=== PATIENT | female | born 1955 | race Caucasian/White ===

== ENCOUNTER 2017-05-30 05:25 | Emergency (ER) | payer OTHER ==
[~2017-05-30] VITALS: Ht 170.2 cm; Wt 83.9 kg
[~2017-05-30 05:25] MED LIST: ACET500; ACYC400 PO; ASPI325; CHLO25 PO; ESTR2 PO; ESTRADIOL1 MG PO; FURO40 PO; HYDHCL25 PO; HYDR1TAB94 PO; IBUP400 PO; K-Dur20 MEQ PO; MAGIC MOUTHWASH; MEDR2.5 PO; MEDR5 PO; METO100ER PO; MICO200S TOP; OXYACE5T PO; OXYB5 PO; Omeprazole20 M1 PO; PROC10 PO; Pepcid40 MG PO; SULTRIDS PO; TRAM50 PO; Zofran Odt4 MG SL; Zofran8 MG PO
[2017-05-30 05:58] LABS: BASOPHILS ABSOLUTE AUTO 0.07 K/mm3 (0.00-0.23); BASOPHILS PERCENT AUTO 1 % (0-2); EOSINOPHILS ABSOLUTE AUTO 0.02 K/mm3 (0.00-0.68); EOSINOPHILS PERCENT AUTO 0 % (0-6); Hematocrit 38.8 % (33.0-51.0); Hemoglobin 13.6 g/dL (11.5-16.0); IMMATURE GRAN ABSOLUTE AUTO 0.07 K/mm3 (0.00-0.10); IMMATURE GRAN PERCENT AUTO 1 % (0-1); LYMPHOCYTES ABSOLUTE AUTO 1.32 K/mm3 (0.84-5.20); LYMPHOCYTES PERCENT AUTO 11 % (21-46); MONOCYTES PERCENT AUTO 7 % (4-13); Mean Corpuscular HGB 32.5 pg (26.0-34.0); Mean Corpuscular HGB Conc 35.1 g/dL (31.5-36.5); Mean Corpuscular Volume 93 fL (80-100); Mean Platelet Volume 8.7 fL (9.1-12.4); NEUTROPHILS ABSOLUTE AUTO 9.99 K/mm3 (1.96-9.15); NEUTROPHILS PERCENT AUTO 81 % (41-73); Platelet Count 227 K/mm3 (150-400); RDW Coefficient Variation 11.7 % (11.7-14.2); RDW Standard Deviation 39.9 fL (35.1-46.3); Red Blood Cell Count 4.18 M/mm3 (3.80-5.20); White Blood Cell Count 12.27 K/mm3 (4.00-11.30)
[2017-05-30 06:00] LABS: Source, Urine Clean Catch
[2017-05-30 06:03] LABS: Bilirubin, Urine Neg (Neg); Blood, Urine Neg (Neg); Glucose Qualitative, Urine Neg (Neg); Ketones, Urine Neg (Neg); Leukocyte Esterase, Urine Neg (Neg); Nitrite, Urine Neg (Neg); Protein, Urine Neg (Neg); Specific Gravity, Urine 1.005 (1.003-1.022); Urobilinogen, Urine NORM (Normal); pH, Urine 6.5 (5.0-8.0)
[2017-05-30 06:08] LABS: Appearance, Urine Clear (Clear); Color, Urine Pale Yellow (P-Yellow)
[2017-05-30 06:15] LABS: Alanine Aminotransfer (ALT/SGP 27 U/L (12-78); Albumin, Blood 3.8 g/dL (3.4-5.0); Albumin/Globulin Ratio 0.9 (0.8-1.8); Alk Phos 101 U/L (50-136); Anion Gap 13 mmol/L (6-16); Aspartate Aminotrans (AST/SGOT 54 U/L (12-37); Bilirubin, Total 0.6 mg/dL (0.1-1.0); Blood Urea Nitrogen 2 mg/dL (8-24); Bun/Creatinine Ratio 4.8 (12.0-20.0); CO2, Blood 18 mmol/L (21-32); Calcium, Blood 7.9 mg/dL (8.5-10.1); Chloride, Blood 90 mmol/L (98-108); Creatinine, Blood 0.42 mg/dL (0.40-1.00); Ethanol (Alcohol), Blood, Med <3 mg/dL; Globulin, Blood 4.4 g/dL (2.2-4.0); Glomerular Filtration Rate >60 (60-); Glucose, Blood 134 mg/dL (70-99); Potassium, Blood 3.3 mmol/L (3.5-5.5); Sodium, Blood 121 mmol/L (136-145); Total Protein, Blood 8.2 g/dL (6.4-8.2)
[2017-05-30] MEDS ORDERED: PROM25 PO (08:09)
[2017-05-30] MEDS ORDERED: Pepcid40 MG PO (08:09)
[2017-05-30] MEDS ORDERED: K-Dur20 MEQ PO (08:12)
== END 2017-05-30 10:18 | disposition home or self-care (01) ==
LOC: ER 05:25
PROVIDERS: Emergency Medicine
DX: K29.20 Alcoholic gastritis without bleeding (principal); F10.10 Alcohol abuse, uncomplicated; E87.6 Hypokalemia; E87.1 Hypo-osmolality and hyponatremia; Z88.5 Allergy status to narcotic agent; Z79.899 Other long term (current) drug therapy; Z87.891 Personal history of nicotine dependence; Y90.0 Blood alcohol level of less than 20 mg/100 ml
CPT/HCPCS: 36415; 80053; 81003; 83690; 85025; 93005; 93010; 96361; 96365; 96366; 96375; 96376; 99283; C9113; G0480; J2001; J2060; J2405; J2550; J3411; J3475; J3480; J7030; J7042

== ENCOUNTER → 2017-12-13 | Outpatient (CLI) | payer OTHER ==
[~2017-12-13] MED LIST changes: +PROM25 PO
[2017-12-15 16:08] LABS: HPV 16 Negative (Negative); HPV 18 Negative (Negative); HPV OTHER HR TYPES Negative (Negative)
== END | disposition home or self-care (01) ==
LOC: LAB 17:26 → LAB SHORT 17:26
PROVIDERS: Nurse Practitioner Women's Health
DX: Z12.4 Encounter for screening for malignant neoplasm of cervix (principal); Z91.89 Other specified personal risk factors, not elsewhere classified
CPT/HCPCS: 87624; G0123

== ENCOUNTER → 2017-12-22 | Outpatient (CLI) | payer OTHER | END | disposition home or self-care (01) | LOC: LAB SHORT 07:50 → PLD 07:50 | DX: N84.0 Polyp of corpus uteri (principal); N95.0 Postmenopausal bleeding | CPT/HCPCS: 88305 ==

== ENCOUNTER 2018-03-30 15:53 | Emergency (ER) | payer OTHER ==
[~2018-03-30] VITALS: Ht 175.3 cm; Wt 83.9 kg
[2018-03-30] MEDS ORDERED: IRON240 MG PO (16:34)
== END 2018-03-30 17:16 | disposition home or self-care (01) ==
LOC: ER 15:53
DX: S80.01XA Contusion of right knee, initial encounter (principal); R03.0 Elevated blood-pressure reading, without diagnosis of hypertension; Z88.5 Allergy status to narcotic agent; Z87.891 Personal history of nicotine dependence; W01.0XXA Fall on same level from slipping, tripping and stumbling without subsequent striking against object, initial encounter
CPT/HCPCS: 73562-RT; 99283-25

== ENCOUNTER 2018-09-03 09:29 | Emergency (ER) | payer OTHER ==
[~2018-09-03] VITALS: Ht 172.7 cm; Wt 72.6 kg
[~2018-09-03 09:29] MED LIST changes: +IRON240 MG PO
[2018-09-03] MEDS ORDERED: Cleocin HCl300 MG PO (12:07)
== END 2018-09-03 12:50 | disposition home or self-care (01) ==
LOC: ER 09:29
DX: K04.7 Periapical abscess without sinus (principal); H61.23 Impacted cerumen, bilateral; R42 Dizziness and giddiness; Z88.5 Allergy status to narcotic agent; Z79.899 Other long term (current) drug therapy; Z87.891 Personal history of nicotine dependence
CPT/HCPCS: 69210; 70450; 99284-25; A9270-GY

== ENCOUNTER 2018-12-17 17:59 | Emergency (ER) | payer OTHER ==
[~2018-12-17] VITALS: Ht 175.3 cm; Wt 78.0 kg
[~2018-12-17 17:59] MED LIST changes: +Cleocin HCl300 MG PO
[2018-12-17 18:54] LABS: BASOPHILS ABSOLUTE AUTO 0.15 K/mm3 (0.00-0.23); BASOPHILS PERCENT AUTO 3 % (0-2); EOSINOPHILS ABSOLUTE AUTO 0.15 K/mm3 (0.00-0.68); EOSINOPHILS PERCENT AUTO 3 % (0-6); Hematocrit 38.6 % (33.0-51.0); Hemoglobin 13.2 g/dL (11.5-16.0); IMMATURE GRAN ABSOLUTE AUTO 0.01 K/mm3 (0.00-0.10); IMMATURE GRAN PERCENT AUTO 0 % (0-1); LYMPHOCYTES ABSOLUTE AUTO 2.26 K/mm3 (0.84-5.20); LYMPHOCYTES PERCENT AUTO 44 % (21-46); MONOCYTES ABSOLUTE AUTO 0.53 K/mm3 (0.16-1.47); MONOCYTES PERCENT AUTO 10 % (4-13); Mean Corpuscular HGB 34.8 pg (26.0-34.0); Mean Corpuscular HGB Conc 34.2 g/dL (31.5-36.5); Mean Corpuscular Volume 102 fL (80-100); Mean Platelet Volume 9.5 fL (9.1-12.4); NEUTROPHILS ABSOLUTE AUTO 2.09 K/mm3 (1.96-9.15); NEUTROPHILS PERCENT AUTO 40 % (41-73); Platelet Count 124 K/mm3 (150-400); RDW Coefficient Variation 12.5 % (11.7-14.2); RDW Standard Deviation 47.6 fL (35.1-46.3); Red Blood Cell Count 3.79 M/mm3 (3.80-5.20); White Blood Cell Count 5.19 K/mm3 (4.00-11.30)
[2018-12-17 19:24] LABS: Alanine Aminotransfer (ALT/SGP 46 U/L (12-78); Albumin, Blood 3.6 g/dL (3.4-5.0); Albumin/Globulin Ratio 0.9 (0.8-1.8); Alk Phos 61 U/L (50-136); Anion Gap 10 mmol/L (6-16); Aspartate Aminotrans (AST/SGOT 108 U/L (12-37); Bilirubin, Total 0.8 mg/dL (0.1-1.0); Blood Urea Nitrogen 6 mg/dL (8-24); Bun/Creatinine Ratio 12.9 (12.0-20.0); CO2, Blood 23 mmol/L (21-32); Calcium, Blood 8.5 mg/dL (8.5-10.1); Chloride, Blood 103 mmol/L (98-108); Creatinine, Blood 0.47 mg/dL (0.40-1.00); Glomerular Filtration Rate >60 (60-); Glucose, Blood 96 mg/dL (70-99); Potassium, Blood 3.8 mmol/L (3.5-5.5); Sodium, Blood 136 mmol/L (136-145); Total Protein, Blood 7.6 g/dL (6.4-8.2); Troponin I <0.015 ng/mL (0.000-0.040)
[2018-12-17 19:25] LABS: Ethanol (Alcohol), Blood, Med 385 mg/dL
== END 2018-12-17 22:04 | disposition home or self-care (01) ==
LOC: ER 17:59
PROVIDERS: Physician Assistant
DX: S06.0X9A Concussion with loss of consciousness of unspecified duration, initial encounter (principal); S01.81XA Laceration without foreign body of other part of head, initial encounter; F10.129 Alcohol abuse with intoxication, unspecified; Z87.891 Personal history of nicotine dependence; Z88.5 Allergy status to narcotic agent; Z88.1 Allergy status to other antibiotic agents; Z79.899 Other long term (current) drug therapy; W01.10XA Fall on same level from slipping, tripping and stumbling with subsequent striking against unspecified object, initial encounter
CPT/HCPCS: 12004; 36415; 70450; 72125; 80053; 84484; 85025; 93005; 93010; 99284-25; G0480

== ENCOUNTER 2018-12-19 16:50 | Inpatient (IN) | payer OTHER ==
[~2018-12-19] VITALS: Ht 175.3 cm; Wt 78.5 kg
[2018-12-19 17:40] LABS: BASOPHILS ABSOLUTE AUTO 0.09 K/mm3 (0.00-0.23); BASOPHILS PERCENT AUTO 2 % (0-2); EOSINOPHILS ABSOLUTE AUTO 0.03 K/mm3 (0.00-0.68); EOSINOPHILS PERCENT AUTO 1 % (0-6); Hematocrit 34.5 % (33.0-51.0); Hemoglobin 12.2 g/dL (11.5-16.0); IMMATURE GRAN ABSOLUTE AUTO 0.02 K/mm3 (0.00-0.10); IMMATURE GRAN PERCENT AUTO 0 % (0-1); LYMPHOCYTES ABSOLUTE AUTO 1.12 K/mm3 (0.84-5.20); LYMPHOCYTES PERCENT AUTO 18 % (21-46); MONOCYTES ABSOLUTE AUTO 0.58 K/mm3 (0.16-1.47); MONOCYTES PERCENT AUTO 10 % (4-13); Mean Corpuscular HGB 35.5 pg (26.0-34.0); Mean Corpuscular HGB Conc 35.4 g/dL (31.5-36.5); Mean Corpuscular Volume 100 fL (80-100); Mean Platelet Volume 9.8 fL (9.1-12.4); NEUTROPHILS ABSOLUTE AUTO 4.26 K/mm3 (1.96-9.15); NEUTROPHILS PERCENT AUTO 70 % (41-73); Platelet Count 103 K/mm3 (150-400); RDW Coefficient Variation 12.2 % (11.7-14.2); RDW Standard Deviation 45.1 fL (35.1-46.3); Red Blood Cell Count 3.44 M/mm3 (3.80-5.20)
[2018-12-19 18:11] LABS: Alanine Aminotransfer (ALT/SGP 43 U/L (12-78); Albumin, Blood 3.8 g/dL (3.4-5.0); Alk Phos 67 U/L (50-136); Anion Gap 9 mmol/L (6-16); Aspartate Aminotrans (AST/SGOT 81 U/L (12-37); Bilirubin, Total 1.3 mg/dL (0.1-1.0); Blood Urea Nitrogen 4 mg/dL (8-24); Bun/Creatinine Ratio 8.7 (12.0-20.0); CO2, Blood 23 mmol/L (21-32); Calcium, Blood 8.2 mg/dL (8.5-10.1); Chloride, Blood 94 mmol/L (98-108); Creatinine, Blood 0.46 mg/dL (0.40-1.00); Globulin, Blood 3.7 g/dL (2.2-4.0); Glomerular Filtration Rate >60 (60-); Glucose, Blood 111 mg/dL (70-99); Potassium, Blood 3.4 mmol/L (3.5-5.5); Total Protein, Blood 7.5 g/dL (6.4-8.2)
[2018-12-19 18:33] LABS: Sodium, Blood 126 mmol/L (136-145)
[2018-12-19 19:38] LABS: Source, Urine Clean Catch
[2018-12-19 19:41] LABS: Appearance, Urine Clear (Clear); Bilirubin, Urine Neg (Neg); Blood, Urine Neg (Neg); Color, Urine Amber (P-Yellow); Glucose Qualitative, Urine Neg (Neg); Ketones, Urine Neg (Neg); Leukocyte Esterase, Urine 1+ (Neg); Nitrite, Urine Neg (Neg); Protein, Urine Neg (Neg); Urobilinogen, Urine NORM (Normal); pH, Urine 6.5 (5.0-8.0)
[2018-12-19 19:51] LABS: Bacteria Rare /hpf; Red Blood Cells, Urine 0-2 /hpf (0-2); Squamous Epithelial Cells Rare /hpf (Few)
[2018-12-19] MEDS ORDERED: ONDA4ODT MM (21:51)
[2018-12-20 04:35] LABS: Magnesium, Blood 2.1 mg/dL (1.6-2.4)
[2018-12-20 04:41] LABS: Anion Gap 7 mmol/L (6-16); Blood Urea Nitrogen 3 mg/dL (8-24); Bun/Creatinine Ratio 5.3 (12.0-20.0); CO2, Blood 26 mmol/L (21-32); Calcium, Blood 7.9 mg/dL (8.5-10.1); Chloride, Blood 103 mmol/L (98-108); Creatinine, Blood 0.56 mg/dL (0.40-1.00); Glomerular Filtration Rate >60 (60-); Glucose, Blood 87 mg/dL (70-99); Potassium, Blood 3.8 mmol/L (3.5-5.5)
[2018-12-20 04:42] LABS: Sodium, Blood 136 mmol/L (136-145)
--- NOTE | 2018-12-20 08:15 | NUR ---
SHIFT SUMMARY ASSUMED CARE OF PT AT 0100, PT ARRIVED BY EMILIANA, RECEIVED REPORT FROM HALLIE ER NURSE. PT ALERT IN BED, QUICK TO FALL ASLEEP, BUT EASILY ROUSABLE, AND ANSWERED ALL QUESTIONS APPROPRIATELY. INITIATED CONTINUOUS PULSE OX, SEIZURE PRECAUTIONS, AND ASPIRATION PRECAUTIONS PER MD ORDER AND UNIT PROTOCOL. PT RESPONDS APPROPRIATELY, BUT MAY LOSE ORIENTATION TO HER OWN LIMITATIONS PER THIS STAY. PATIENT'S CIWAS GRADUALLY INCREASED FROM <8 AT PCU ADMIT TO 20 AT 0521 WHEN PT'S BED ALARM ALERTED STAFF OF HER INTENT TO SELF-TRANSFER TO [facility]. PATIENT REMAINED IN BED WITH NO ISSUES FOR REMAINDER OF SHIFT. REPORT AND CARE OF PT PASSED TO ONCOMING SHIFT AT 0700. BED LOCKED AND LOW, CALL LIGHT W/IN REACH.
[2018-12-20] MEDS ORDERED: MEDR5 PO (08:24)
[2018-12-20] MEDS ORDERED: Prinivil10 MG PO (08:25)
[2018-12-20] MEDS ORDERED: Hydrochloroth12.5 MG PO (08:26)
--- NOTE | 2018-12-20 08:28 | NUR ---
Dr. Flaherty here to see the pt at this time. Med list from home updated.
--- NOTE | 2018-12-20 08:46 | NUR ---
Pt assisted, very weak and shaky legs, to the BSC. NOted brown/red stool, and blood when wiping. Pt denies hemorrhoids. Dr. Flaherty called back into room, and he saw the stool. New order received.
--- NOTE | 2018-12-20 09:04 | NUR ---
given 2 mg ativan for CIWA of 9 at this time. Her is calm, supportive and remaining by the bedside. Pt tolerated clear liquid breakfast.
--- NOTE | 2018-12-20 09:27 | NUR ---
Per pt, her last drink was Tuesday around noon. States that she drinks at least 2 beers per day.
--- NOTE | 2018-12-20 09:55 | NUR ---
ALCOHOL INTAKE Glynn tells me that the pt drinks 6 Hurricane beers/day, 24 ounces each. States that when he leaves to go to work, if she has no money, then she will borrow from the neighbor and get someone else to buy them for her. States that they have had big arguments about her drinking. He does not believe that she wants to quit drinking.
--- NOTE | 2018-12-20 10:53 | NUR ---
The pt is sleepy, but readily awakens to verbal/tactile stimuli. Her is at the bedside. Vital signs are stable. CIWA is 1 at this time.
[2018-12-20 11:27] LABS: Stool Occult Blood Guaiac 1 Pos (Neg)
--- NOTE | 2018-12-20 11:27 | NUR ---
Patient is sitting up in bed and dosing off and on with her , Denny edwards. I focused my conversation on the because patient is unable to focus for more than a few minutes at a time. Denny tells me about his employment at the [employer], his confucianist/[employer]ist of [place] spiritual background and about his hobbies (he loves riding his motorcycle). We talk about what life is like for him as he deals with the patient's"health" issues. Patient admits that it is difficult for him. We talk about ways to manage this stress. I listen empathically and provide pastoral litigation counsel and prayer. Both patient and Denny thank me for the prayer. I will continue to remain available to patient and family.
--- NOTE | 2018-12-20 13:05 | NUR ---
Call to Dr. Flaherty to update on pt's rising blood pressure, and home medication for blood pressure, not yet on the in-patient orders. New order received to start the home antihypertensives. Also informed the doctor of the information received from the pt's , that her alcohol intake is 6 x 24 oz hurricane beer / day. Pt is having stable withdrawls at this point in time, with the use of current prn librium and ativan as ordered.
--- NOTE | 2018-12-20 13:36 | NUR ---
The pt is sitting up in bed, says that she is done with lunch, and is feeling fine. Appears calm, no agitation or anxiety apparent, no tremors noted, able to tell me that the date is 12/20/18. Her is at the bedside.
--- NOTE | 2018-12-20 15:59 | NUR ---
family at bedside, call light in reach, able to make needs known, assisted to bsc, no s/sx of withdrawl noted at this time, treatment has been successful, still very sleepy, bed alarm on for safety
--- NOTE | 2018-12-20 22:01 | NUR ---
PCU NOTE (NOC SHIFT) PATIENT ALERT AND ORIENTED TO SELF, LOCATION AND SITUATION. PATIENT AND PATIENTS VERBALIZE THAT PATIENT HAS BEEN UNABLE TO STOP DRINKING (ETOH CESSATION). PATIENT HAD A FALL IN HER BATHROOM WHILE INPAIRED AT HOME AND HAS A SEVERE LACERATION TO HER SCALP WITH 18 STITCHES NOTED, SWELLING AND OOZING OF BLOOD NOTED (PATIENT HAS LOW PLATLETS). PATIENTS CIWA SCORES HAVE BEEN 9-16 THIS SHIFT SHE IS TREMULOUS, PLEASANTLY AGITATED (MOVING AROUND, SHIFTING IN BED, GETTING UP AND DOWN) AND SWEATY; MEDICATED PER EMAR. PATIENT HEART RATE CONTINUOUS TO BE SINUS TACH. LUNG SOUNDS CLEAR AND PATIENT REMAINS ON ROOM AIR. BED ALARM ON, SIDE RAILS UP X3, WILL CONTINUE TO MONITOR.
--- NOTE | 2018-12-21 00:37 | NUR ---
PCU 0000 NOTE PATIENT RESTFUL AT THIS TIME WITH CIWA >9. REPORTED TO MAIN WOODWARD. BED ALARM ON. CALL LIGHT W/I REACH.
--- NOTE | 2018-12-21 01:29 | NUR ---
REPORT FROM JOSE G WOODWARD AT APPRX 0040. PT MUMBLING. VSS. PT 96% ON RA. PT SHORTLY AFTER RESTLESS IN BED SOUNDING OFF BED ALARM. PT STATED NEEDED TO GO, "PEE". PT ASSISTED ONTO BEDPAN. PT THUS FAR SLIGHTLY RESTLESS AT TIMES BUT NOT TRYING TO GET OUT OF BED. WILL CONTINUE TO MONITOR. SEE CIMA FLOWSHEET.
--- NOTE | 2018-12-21 02:58 | NUR ---
PT RESTING QUIETLY AFTER ATIVAN 2mg ADMIN. PRIOR TO FALLING ASLEEP PT RESTLESS AND GIVEN BEDPAN. PT AT THAT TIME ANSWERED, "[place]" TO PLACE, "[facility]" TO PRESIDENT, "[facility]" TO MONTH, THEN STATED, "HOSP[facility]" TO PLACE. CURRENTLY PT SLEEPING, SATS 97% ON RA, HR 86, RR 18. BED ALARM ON.
[2018-12-21 04:14] LABS: Hematocrit 34.6 % (33.0-51.0); Hemoglobin 11.4 g/dL (11.5-16.0); Mean Corpuscular HGB 34.5 pg (26.0-34.0); Mean Corpuscular HGB Conc 32.9 g/dL (31.5-36.5); Mean Platelet Volume 10.4 fL (9.1-12.4); Platelet Count 92 K/mm3 (150-400); RDW Coefficient Variation 12.4 % (11.7-14.2); RDW Standard Deviation 47.9 fL (35.1-46.3)
[2018-12-21 04:24] LABS: Mean Corpuscular Volume 105 fL (80-100)
[2018-12-21 04:40] LABS: Anion Gap 7 mmol/L (6-16); Blood Urea Nitrogen 3 mg/dL (8-24); Bun/Creatinine Ratio 6.6 (12.0-20.0); CO2, Blood 26 mmol/L (21-32); Calcium, Blood 7.7 mg/dL (8.5-10.1); Chloride, Blood 106 mmol/L (98-108); Creatinine, Blood 0.46 mg/dL (0.40-1.00); Glomerular Filtration Rate >60 (60-); Glucose, Blood 96 mg/dL (70-99); Sodium, Blood 139 mmol/L (136-145)
--- NOTE | 2018-12-21 07:35 | NUR ---
250mg of Librium and 10 mg ativan given within the past 24 hours per CIWA score dosing. The pt awakened during report, was speaking incoherently, and attempting OOB independently, and set off the bed alarm. Stated that she was at the judaism. We were able to get her settled back in bed easily, and she has fallen asleep now. NOC shift had medicated her with ativan at 0640.
--- NOTE | 2018-12-21 08:42 | NUR ---
Pt is having slurred speech, still, but more understandable and appropriate. When getting her up to the [facility], she c/o left sided weakness. Noted that she has a slight left side mouth and left eye slight drooping. her is here and noted it also. PERRLA, right side tongue deviation. Facial expressions are unequal, with left being droopy. Able to shrug her shoulders equally, and able to raise her arms but they are drifted off to the right, although she states they are straight. Left hand financial systems administrator also slightly weaker. Dr. Randall called and new orders will be put in by him.
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
--- NOTE | 2018-12-21 16:00 | NUR ---
Dr. Randall to see the pt at this time. The pt states she is mad, upset and anxious. She is angry at her because he won't give her any beer. The pt states that she doesn't want a whole 6 pack like she usually gets, just one beer, but her won't get it for her. She continues to stand up, unaware apparently that she is at risk for falling and can barely take a few steps with max staff assistance to transfer between chair and bed. Chair alarm is on. The pt tells Dr. Randall that she has no intention of quitting drinking at this time. New order recieved for OT ativan at this time.
--- NOTE | 2018-12-21 16:12 | NUR ---
Pt's left about 30 minutes ago, because it was just making his angrier and angrier that he was here and refusing to her her some beer. Extra dose of ativan was given per MD orders at this time.
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
--- NOTE | 2018-12-21 18:29 | NUR ---
A AT BASE LINE, CALL LIGHT IN REACH, FAMILY IN ROOM, ALARM TURNED ON, BED IN LOW POSITION, CIWA COMPLETED AND TREATED APPROPRIATE, IV INFUSING AND SALINE LOCKED, 3 l VIA NC, TACH AND NSR FROM 90'S UP TO LOW 100'S, STILL CONFUSED AT TIME, WANTS TO GO HOME, WOUND STILL SLIGHTLY SWOLLEN, WILL CONTINUE TO MONITOR AND TREAT UNTIL SBAR REPORT PROVIDE TO NIGHT NURSE
[2018-12-22 04:44] LABS: Anion Gap 9 mmol/L (6-16); Blood Urea Nitrogen 1 mg/dL (8-24); Bun/Creatinine Ratio 2.3 (12.0-20.0); CO2, Blood 21 mmol/L (21-32); Calcium, Blood 7.7 mg/dL (8.5-10.1); Chloride, Blood 107 mmol/L (98-108); Creatinine, Blood 0.43 mg/dL (0.40-1.00); Glomerular Filtration Rate >60 (60-); Glucose, Blood 104 mg/dL (70-99); Potassium, Blood 2.9 mmol/L (3.5-5.5); Sodium, Blood 137 mmol/L (136-145)
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
--- NOTE | 2018-12-22 08:17 | NUR ---
REPORT CALLED TO HAVEN WOODWARD FOR ICU BED. AWARE CIWA 30S AND THAT 2MG ATIVAN ADMINISTERED. MET US IN [place] AND WAS DIRECTED TO ROOM
--- NOTE | 2018-12-22 09:30 | NUR ---
ARRIVAL TO ICU PT ARRIVED TO ICU AT 0810. SHE IS DROWSY AND SLEEPING UPON ARRIVAL. SLURRED SPEECH WHEN ANSWERING QUESTIONS. DENIES PAIN AT THIS TIME. NSR, HR 90-110. BP STABLE. AFEBRILE. NS INFUSING AT 100 ML/HR PER ORDER. POTASSIUM REPLACEMENT INFUSING. AT BEDSIDE. DENIES NAUSEA. WILL CONTINUE TO MONITOR.
--- NOTE | 2018-12-22 11:44 | NUR ---
REASSESSMENT PT SLEPING AND APPEARS COMFORTABLE AT THIS TIME. PT WAS HAVING MODERATE TREMORS, HALLUCINATIONS, AND WAS MILDLY AGITATED. PRECEDEX GTT STARTED AT 1030; CURRENTLY INFUSING AT 0.3MCG/KG. NS INFUSING AT 100 ML/HR PER ORDER. VSS. NSR, HR 70S. WILL CONTINUE TO MONITOR.
--- NOTE | 2018-12-22 19:00 | NUR ---
ASSUMED CARE ASSUMED CARE OF PATIENT. RESTING QUIETLY WHEN UNDISTURBED. ROUSES TO VERBAL STIMULI. ORIENTED TO SELF, PLACE, AND EVENTS WHEN AWAKE. DISORIENTED TO DATE/TIME. COOPERATIVE WITH CARE. SPEECH IS GARBLED. PRECEDEX INFUSING @ 0.4MCG/KG/HR AT THIS TIME. NS INFUSING @ 100CC/HR. MOVES ALL EXTREMITITES AND REPOSITIONS SELF IN BED WITHOUT DIFFICULTY. DENIES C/O PAIN AT THIS TIME. MONITOR SHOWS NSR, RATE 60s. BP STABLE. REMAINS ON RA. RESPIRATIONS EVEN AND UNLABORED. ATTENDS IN PLACE. SEE SHIFT ASSESSMENT FOR FULL ASSESSMENT.
--- NOTE | 2018-12-22 19:35 | NUR ---
SHIFT SUMMARY PT REMAINED IN BED ENTIRE SHIFT. WAS TRANSFERRED FROM PCU AT 0800 TODAY. PRECEDEX GTT STARTED AROUND 1030 WHEN PT BECAME RESTLESS AND CIWA INCREASED. NO S/S PAIN THROUGHOUT SHIFT. VSS ENTIRE SHIFT. NSR. MIV NS INFUSING AT 100 ML;/HR PER ORDER DURING SHIFT. PT HAD MULTIPLE WET BREIFS DURING SHIFT. HAS REMAINED NPO DUE TO ASPIRATION RISK. BEDSIDE MOST OF SHIFT AND UPDATED THROUGHOUT DAY. HENRY ON HEAD REMAIN INTACT. BEDSIDE, HANDOFF REPORT GIVEN TO RAMESH WOODWARD.
[2018-12-23 03:59] LABS: Anion Gap 9 mmol/L (6-16); Blood Urea Nitrogen 2 mg/dL (8-24); CO2, Blood 19 mmol/L (21-32); Calcium, Blood 7.2 mg/dL (8.5-10.1); Chloride, Blood 112 mmol/L (98-108); Glomerular Filtration Rate >60 (60-); Glucose, Blood 102 mg/dL (70-99); Magnesium, Blood 1.7 mg/dL (1.6-2.4); Phosphorus, Blood 1.8 mg/dL (2.5-4.9); Potassium, Blood 3.2 mmol/L (3.5-5.5); Sodium, Blood 140 mmol/L (136-145)
--- NOTE | 2018-12-23 06:15 | NUR ---
ABNORMAL LABS LOW POTASSIUM, MAGNESIUM, AND PHOSPHOROUS CALLED TO DR. LOMBARDI- NEW ORDERS RECEIVED FOR REPLACEMENT.
--- NOTE | 2018-12-23 06:27 | NUR ---
SHIFT SUMMARY NO ACUTE CHANGES DURING NOC. RESTED/SLEPT QUIETLY WHEN UNDISTURBED. ROUSES TO VERBAL STIMULI. SPEECH REMAINS GARBLED. ORIENTED TO SELF AND PLACE. DISORIENTED TO DATE/TIME. PRECEDEX INFUSED AT 0.4MCG/KG/HR T/O NOC. CIWA 8-10. REPOSITIONS SELF IN BED. OCCASIONALLY VOIDS IN BEDPAN AND OCCASIONALLY INCONTINENT OF URINE. HENRY REMAIN INTACT TO LEFT SIDE OF HEAD. NS INFUSING @ 100CC/HR PER ORDER. WILL REPORT TO DAY SHIFT RN WHEN AVAILABLE.
--- NOTE | 2018-12-23 13:19 | NUR ---
REASSESSMENT: PT HAS BEEN RESTING IN BED THROUGHOUT THE MORNING. SHE CONTINUES ON THE PRECEDEX DRIP, TIRATING DOWN ABLE. THIS MORNING IT WAS TURNED OFF TO ALLOW HER TO WAKE UP ENOUGH TO TAKE HER MEDICATIONS. WITH PRECEDEX OFF SHE WAS ORIENTED TO PERSON AND PLACE, BUT HAVING VISUAL HALLUCINATIONS AND QUITE CONFUSED. PT KEPT THINKING HER BETYBNAD'S HAND WAS JELLO AND WAS PICKING AT THINGS THAT WEREN'T THERE. PT WAS ABLE TO TAKE HER MEDS SAFELY AND THEN PRECEDEX TURNED BACK ON, BUT AT A LOWER RATE. LUNGS ARE CLEAR, DIM. PT IS ON RA. SR, BP STABLE. PT WAS INCONTINENT OF A BM. SHE HAS BEEN INCONTINENT OF URINE ONCE AND CALLED TO USE THE RESTROOM ONCE. PT'S HEAD WOUND REMAINS UNCHANGED. PT'S HAS SPENT MOST OF THE MORNING AT THE BEDSIDE. CONTINUING TO MONITOR.
[2018-12-23 15:54] LABS: Anion Gap 8 mmol/L (6-16); Blood Urea Nitrogen 2 mg/dL (8-24); Bun/Creatinine Ratio 4.9 (12.0-20.0); CO2, Blood 22 mmol/L (21-32); Calcium, Blood 7.6 mg/dL (8.5-10.1); Chloride, Blood 108 mmol/L (98-108); Creatinine, Blood 0.41 mg/dL (0.40-1.00); Glomerular Filtration Rate >60 (60-); Glucose, Blood 126 mg/dL (70-99); Potassium, Blood 3.9 mmol/L (3.5-5.5); Sodium, Blood 138 mmol/L (136-145)
--- NOTE | 2018-12-23 16:46 | NUR ---
SHIFT SUMMARY: PT SPENT THE DAY RESTING IN BED. CIWAA HAS RANGED FROM 8-11. PRECEDEX GTT STILL INFUSING, BUT HAS BEEN TITRATED DOWN TO 0.1 MCG/KG/HR. LUNGS ARE CLEAR. HR SR, BP STABLE. PT HAS REQUESTED THE BED NAVARRO TWICE TODAY TO VOID AND HAD ONE INCONTINENT EPISODE OF URINE AND ONE OF STOOL. PT'S HAS REMAINED AT THE BEDSIDE ON AND OFF THROUGHOUT THE DAY. HE HAS BEEN FULLY UPDATED BY NURSING STAFF AND DR. ROD.
--- NOTE | 2018-12-23 21:00 | NUR ---
ASSUMED CARE NOTE: ASSUMED CARE OF PT AT 1900, RECEIVED REPORT FROM JAIRON. UPON ENTERING [facility], PT WAS LAYING IN THE SUPINE POSITION IN BED. PT WAS ABLE TO FOLLOW DIRECTIONS, HOWEVER SHE IS ONLY ORIENTED TO SELF AND FAMILY. PT'S INITAL CIWA WAS 9 AND SHE WAS MEDICATED PER EMAR. PT DENIES ANY PAIN AT THIS TIME. PT HAS MODERATE TREMORS NOTED. PT DOES NOT APPEAR TO BE HALLUCINATING AT THIS TIME. WHEN PT WAS ASKED HOW SHE WAS DOING SHE STATED " I AM ANXIOUS AND DEPRESSED". PT WAS EDUCATED THAT MEDICATIONS WOULD BE GIVEN TO HER TO HELP EASE HER ANXIETY.PT HAS BEEN INCONTINENT OF STOOL AND URINE. BED AT LOWEST LEVEL , BED ALARM ON AND CALL LIGHT IS WITHIN REACH
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
[2018-12-24 04:06] LABS: Anion Gap 7 mmol/L (6-16); Blood Urea Nitrogen 3 mg/dL (8-24); Bun/Creatinine Ratio 7.3 (12.0-20.0); CO2, Blood 23 mmol/L (21-32); Calcium, Blood 7.2 mg/dL (8.5-10.1); Chloride, Blood 109 mmol/L (98-108); Creatinine, Blood 0.41 mg/dL (0.40-1.00); Glomerular Filtration Rate >60 (60-); Glucose, Blood 102 mg/dL (70-99); Magnesium, Blood 1.9 mg/dL (1.6-2.4); Phosphorus, Blood 2.5 mg/dL (2.5-4.9); Potassium, Blood 3.4 mmol/L (3.5-5.5); Sodium, Blood 139 mmol/L (136-145)
--- NOTE | 2018-12-24 06:08 | NUR ---
SHIFT SUMMARY: PT WAS ABLE TO GET SOME REST AFTER PRECEDEX WAS INITIATED. HOWEVER, IT HAD TO BE TITRATED DOWN TO 0.2MCG/KG/HR DUE TO BP DECREASING INTO THE LOW 90/50'S. PT HAS BEEN ORIENTED TO SELF, AND HAS BEEN EXPERIENCING HALLUCINATIONS, SUCH BELIEVING THERE ARE PEOPLE IN HER ROOM. SHE HAS ALSO YELLING OUT INCOHERENT WORDS. PT HAS USED THE BEDPAN A COUPLE TIMES DURING THE SHIFT, BUT HAS MOSTLY BEEN INCONTINENT. CIWA SCORES HAVE RANGED FROM 8-24, AND SHE WAS MEDICATED PER EMAR. PT HAS DENIED ANY PAIN, NAUSEA, VOMITING. PT REPOSITONS SELF, BED AT LOWEST LEVEL. WILL CONTINUE TO MONITOR PT UNTIL REPORT IS GIVEN TO ONCOMING SHIFT.
--- NOTE | 2018-12-24 14:43 | NUR ---
PT LYING IN BED COMFORTABLY MOST OF THE DAY. AM CIWA 8, 50MG LIBRIUM GIVEN. MINIMUM WITHDRAWAL SYMPTOMS NOTED DURING AFTERNOON ASSESSMENT. HEAD LAC AND HENRY REMAIN DRY AND INTACT. PT A&O TO SELF, PLACE, YEAR HOWEVER SPEECH IS SLURRED AND PT STATED SHE FELT GROGGY. PRECEDEX TURNED OFF TO ALLOW FOR NEURO ASSESSMENT AND TO TAKE AM PO MEDS. PT WAS ABLE TO TAKE PO MEDS ONE PILL AT A TIME IN APPLESAUCE. PT HAS BECOME MORE ALERT THROUGHOUT DAY. LUNG SOUNDS CLEAR BUT DIMINISHED, 02 SAT 99% ON RA. BOWEL TONES ACTIVE. PT HAS HAD ONE SMALL LOOSE BM AND VOIDED 100ML OF URINE. PT IN DEPENDS BUT REQUESTS BEDPAN WHEN NEEDED. PT GENERALLY WEAK AND NEEDS ASSISTANCE WITH TURNING AND ADLS.
--- NOTE | 2018-12-24 16:19 | NUR ---
SHIFT SUMMARY: PT IN BED MAJORITY OF SHIFT. ALERTNESS HAS INCREASED SOME THROUGHOUT DAY ONCE PRECEDEX WAS TURNED OFF. AM CIWA 8, 50 MG LIBRIUM GIVEN. ON AFTERNOON REASSESSMENT PT STATED SHE FELT BETTER AND ISN'T SHAKY. FINAL BAG OF K+ HANGING WITH
--- NOTE | 2018-12-24 20:00 | NUR ---
ASSUMED CARE NOTE: ASSUMED CARE OF PT AT 1900, RECEIVED REPORT FROM NATA WOODWARD. UPON ENTERING ROOM PT WAS ALERT AND ORIENTED TO SELF, AND PLACE. PT STATED " I AM HAVING ANXIETY" CIWA WAS THEN SCORED AT 15. SHE WAS MEDICATED PER EMAR. PT HAS BEEN USING BEDPAN, URINE DENNIS IN COLOR. NS RUNNING AT 100MLS HR. PT DENIES ANY PAIN AT THIS TIME. BED AT LOWEST LEVEL, CALL LIGHT WITHIN REACH.
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
[2018-12-25 04:07] LABS: BASOPHILS ABSOLUTE AUTO 0.07 K/mm3 (0.00-0.23); BASOPHILS PERCENT AUTO 1 % (0-2); EOSINOPHILS PERCENT AUTO 2 % (0-6); Hematocrit 34.9 % (33.0-51.0); Hemoglobin 11.4 g/dL (11.5-16.0); IMMATURE GRAN ABSOLUTE AUTO 0.01 K/mm3 (0.00-0.10); IMMATURE GRAN PERCENT AUTO 0 % (0-1); LYMPHOCYTES ABSOLUTE AUTO 1.43 K/mm3 (0.84-5.20); LYMPHOCYTES PERCENT AUTO 26 % (21-46); MONOCYTES ABSOLUTE AUTO 0.93 K/mm3 (0.16-1.47); MONOCYTES PERCENT AUTO 17 % (4-13); Mean Corpuscular HGB Conc 32.7 g/dL (31.5-36.5); Mean Corpuscular Volume 107 fL (80-100); Mean Platelet Volume 10.4 fL (9.1-12.4); NEUTROPHILS ABSOLUTE AUTO 2.98 K/mm3 (1.96-9.15); NEUTROPHILS PERCENT AUTO 54 % (41-73); Platelet Count 142 K/mm3 (150-400); RDW Coefficient Variation 12.6 % (11.7-14.2); RDW Standard Deviation 50.5 fL (35.1-46.3); Red Blood Cell Count 3.26 M/mm3 (3.80-5.20); White Blood Cell Count 5.52 K/mm3 (4.00-11.30)
[2018-12-25 04:28] LABS: Anion Gap 6 mmol/L (6-16); Blood Urea Nitrogen 3 mg/dL (8-24); Bun/Creatinine Ratio 7.3 (12.0-20.0); CO2, Blood 23 mmol/L (21-32); Calcium, Blood 7.6 mg/dL (8.5-10.1); Chloride, Blood 109 mmol/L (98-108); Creatinine, Blood 0.41 mg/dL (0.40-1.00); Glomerular Filtration Rate >60 (60-); Glucose, Blood 97 mg/dL (70-99); Potassium, Blood 3.6 mmol/L (3.5-5.5); Sodium, Blood 138 mmol/L (136-145)
--- NOTE | 2018-12-25 05:57 | NUR ---
SHIFT SUMMARY: PT WAS CONFUSED AND AGITATED FOR THE MAJORITY OF THE SHIFT. PT WAS FEARFUL THAT STRANGERS WERE IN HER ROOM. AFTER PRECEDEX WAS INITIATED AT 0.3MCG/KG/HR, PT WAS ABLE TO REST. PT HAS USED THE BEDPAN T/O THE ENTIRE SHIFT. PT CONTINUES TO REPOSITION SELF AND IS ABLE TO USE THE CALL LIGHT APPRORIATLEY. PT IS NO LONGER ATTEMPTING TO GET OF BED WITHOUT ASSISTANCE, HOWEVER BED ALARM IS STILL ON DUE TO HIGH FALL RISK. WILL CONTINUE TO MONITOR PT UNTIL REPORT IS GIVEN TO ONCOMING RN. BED AT LOWEST LEVEL, CALL LIGHT WITHIN REACH.
--- NOTE | 2018-12-25 07:50 | NUR ---
ASSUMED CARE OF PT. REPORT FROM HUGH WOODWARD. PT LAYING IN BED, SIDE RAILS UP AND BED ALARM IN PLACE. PRECEDEX INFUSING AT 0.3 MCG/KG/HR. VSS. WILL CONTINUE TO MONITOR FOR DT SYMPTOMS.
--- NOTE | 2018-12-25 08:30 | NUR ---
PT REQUESTING TO USE BEDPAN. PT INCONTINENT OF URINE. CLEAN ATTENDS PLACED. PT A&OX 3. ANSWERS QUESTIONS APPROPRIATELY. FOLLOWS SIMPLE DIRECTIONS. PT DENIES COMPLAINTS. DENIES VISUAL OR AUDITORY HALLUCINATIONS. SLURRED SPEECH. LUNGS CLEAR. ABD DISTENDED, SOFT, NON TENDER. WILL CONTINUE TO MONITOR.
--- NOTE | 2018-12-25 12:11 | NUR ---
PRECEDEX OFF, PT AWAKE, SITTING UP IN BED, STATES SHE SEES A SQUID ON HER LUNCH TRAY, THEN TELLS THIS RN "I'M HALLUCINATING, AREN'T I?" ATIVAN ADMINISTERED PER ORDERS FOR CIWA SCORE OF 8. PT REMAINS DROWSY BUT IS ABLE TO STAY AWAKE TO EAT CLEARS LUNCH, IS PLEASANT AND COOPERATIVE. AT BEDSIDE, VSS, BED ALARM ON, CALL LIGHT IN REACH. PT DENIES NAUSEA/ABD PAIN AFTER EATING.
--- NOTE | 2018-12-25 15:21 | NUR ---
ASSISTED ON BEDPAN. PRECEDEX OFF AT THIS TIME. PT c FINE TREMORS TO HANDS WHEN EXTENDED. DENIES HALLUCINATIONS, N/V OR OTHER SYMPTOMS.
--- NOTE | 2018-12-25 18:27 | NUR ---
SHIFT SUMMARY. PT WEANED OF PRECEDEX DURING SHIFT. A&OX 3. ANSWERS QUESTIONS APPROPRIATLY. FOLLOWS COMMANDS. DENIES [place], N/V, HALLUCINATION. SLIGHT TREMOR TO UPPER EXTREMITIES WHEN ARM EXTENDED. REMAINS WEAK, ASSIST TO BEDPAN. LACERATION REPAIR CLEANED AND SOAKED. SMALL AMOUNT OF CLOTED BLOOD REMAIN. SO STATES THEY WERE INSTRUCTED THAT HENRY BE REMOVED 10 DAYS AFTER INJURY. PT ABLE TO EAT CLEAR LIQUID DIET THIS EVENING. PER DR ROD, GOAL FOR PRECEDEX TO REMAIN OFF DURING RADIOLOGY SPECIALIST OR WEAN OFF EARLY IN AM FOR DR ASSESSMENT IN MORNING. REPORT TO ONCOMING NURSE.
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
[2018-12-26 03:54] LABS: Anion Gap 7 mmol/L (6-16); Blood Urea Nitrogen 1 mg/dL (8-24); Bun/Creatinine Ratio 2.5 (12.0-20.0); CO2, Blood 25 mmol/L (21-32); Calcium, Blood 8.1 mg/dL (8.5-10.1); Chloride, Blood 106 mmol/L (98-108); Creatinine, Blood 0.39 mg/dL (0.40-1.00); Glomerular Filtration Rate >60 (60-); Glucose, Blood 102 mg/dL (70-99); Potassium, Blood 3.3 mmol/L (3.5-5.5); Sodium, Blood 138 mmol/L (136-145)
--- NOTE | 2018-12-26 07:21 | NUR ---
NO PRECEDEX T/O NOC: PT NOT REQUIRING PRECEDEX THIS LAST NOC. PT WITH CIWA OF <8-20 AND RESOLVED WITH LIBRIUM 25mg X2 AND ATIVAN 2mg X1. PT'S TO BEDSIDE THIS AM AND WILL BE BACK THIS AFTERNOON. REPORT TO CARLOS WOODWARD TO ASSUME CARE AT THIS TIME.
--- NOTE | 2018-12-26 07:35 | NUR ---
ASSUMED CARE REPORT FROM MAIN Booth RN. WAS AT BEDSIDE BUT LEFT FOR WORK. PATIENT DOZING. NS 100 ML/HR
--- NOTE | 2018-12-26 08:13 | NUR ---
MD VISIT DR. ROD IN. ORDERS TO CHANGE STATUS TO MED/NO TELE
--- NOTE | 2018-12-26 17:05 | NUR ---
NO LIBRIUM GIVEN SINCE 1ST DOSE OF 25 MG THIS MORNING. SLIGHTLY MORE STEADY ON HER FEET THIS AFTERNOON WITH PHYSICAL THERAPY. OOB TO BSC SEVERAL TIMES, BUT NEEDS DIRECTION AND IS TOTTERY ON FEET. BED ALARM IS ON.
--- NOTE | 2018-12-26 19:40 | NUR ---
ASSUMED CARE RECEIVED REPORT FROM CRISSY GONZALEZ. PT IS IN BED COMPLAINING OF A HEADACHE IN BED. SHE IS ALERT AND ORIENTED TO SELF, , TIME, AND SURROUNDINGS. PRELIMINARY CIWA < 10. IS AT BEDSIDE. BED IS LOW AND LOCKED. CALL LIGHT WITHIN REACH.
[2018-12-27 03:32] LABS: Anion Gap 6 mmol/L (6-16); Blood Urea Nitrogen 2 mg/dL (8-24); Bun/Creatinine Ratio 4.1 (12.0-20.0); CO2, Blood 28 mmol/L (21-32); Calcium, Blood 8.8 mg/dL (8.5-10.1); Chloride, Blood 103 mmol/L (98-108); Creatinine, Blood 0.48 mg/dL (0.40-1.00); Glomerular Filtration Rate >60 (60-); Glucose, Blood 102 mg/dL (70-99); Magnesium, Blood 1.7 mg/dL (1.6-2.4); Potassium, Blood 3.3 mmol/L (3.5-5.5); Sodium, Blood 137 mmol/L (136-145)
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
--- NOTE | 2018-12-27 07:27 | NUR ---
ASSUMED CARE OF PT THIS AM PT. ALERT AND ORIENTED TO LOCATION AND PRESIDENT HOWEVER UNSURE OF DATE. PT SLOW TO RESPOND AND AT TIMES SPEECH GARBLED. PT. VSS THIS AM. DENIES PAIN AT THIS TIME. LS CLEAR, PT ON RA. WITH SPO2 97%. PT RESTING COMFORTABLY IN BED. CALL LIGHT IN REACH. PT. HAS WOUND TO HEAD WITH HENRY IN PLACE. PER TRAVEL INFORMATION CENTER SUPERVISOR RN HENRY TO REMOVED 12/28 (10 DAYS POST PLACEMENT).
--- NOTE | 2018-12-27 10:46 | NUR ---
PT UP WORKING WITH PHYSICAL THERAPY. REMAINS WEAK HOWEVER IMPROVING. PT. REQURING GAIT BELT AND WALKER FOR AMBULATION.
--- NOTE | 2018-12-27 15:11 | NUR ---
PT UP TO BEDSIDE COMMODE WITH ONE PERSON ASSIST REMAINS TREMOROUS HOWEVER APPROPRIATE WITH CARE. CIWA SCORE OF 1. PT. UP WITH OT AND PT TODAY TO USE WALKER AND GAIT BELT FOR AMBULATION. USES CALL LIGHT APPROPRIATELY. NADN. AWAITING TO HEAR IF PT GOING TO SKILLED REHAB TODAY.
--- NOTE | 2018-12-27 16:24 | NUR ---
REPORT CALLED TO MEDICAL FLOOR RN. PLANS FOR TRANSFER TO [facility] TOMORROW.
--- NOTE | 2018-12-27 18:03 | NUR ---
PT ARRIVED TO THE FLOOR VIA WHEELCHAIR THIS AFTERNOON. PT TRANSFERED TO BED WITH STANDBY ASSIST. PT SLOW TO RESPOND AND WITHDRAWN. WOUND ON HEAD C/D/I. PT HAS BEEN SITTING ON BEDSIDE SINCE ARRIVING ON THE UNIT. PT COOPERATIVE WITH CARE. PT'S IN ROOM. PT STATES NO ADDITIONAL NEEDS AT THIS TIME.
--- NOTE | 2018-12-28 05:08 | NUR ---
PATIENT VERY SOMNOLENT AND SLURRING WORDS EARLY IN SHIFT. FULLY ORIENTED X4. SLEPT WELL OVERNIGHT ONLY WAKING UP ONCE TO ATTEMPT TO UNSUCCESSFULLY USE BSC. VOIDED BENDING MACHINE SET UP OPERATOR CLEAR DENNIS URINE. ASKING ABOUT REHAB. ANXIOUS TO GET FEELING BETTER SO SHE CAN GO HOME. ASKED FOR MIRROR THIS AM TO SEE SCAR. SAID IT WAS WHAT SHE EXPECTED, THEN ASKED IF WE WOULD CUT OFF OTHER SIDE OF HAIR.
[2018-12-28 05:43] LABS: Anion Gap 6 mmol/L (6-16); Blood Urea Nitrogen 4 mg/dL (8-24); Bun/Creatinine Ratio 9.1 (12.0-20.0); CO2, Blood 28 mmol/L (21-32); Calcium, Blood 9.2 mg/dL (8.5-10.1); Chloride, Blood 101 mmol/L (98-108); Creatinine, Blood 0.44 mg/dL (0.40-1.00); Glomerular Filtration Rate >60 (60-); Glucose, Blood 111 mg/dL (70-99); Potassium, Blood 3.5 mmol/L (3.5-5.5); Sodium, Blood 135 mmol/L (136-145)
--- NOTE | 2018-12-28 14:48 | NUR ---
DISCHARGE PT DISCHARGED TO [facility]. THIS RN CALLED REPORT TO CRISSY GIL. IV REMOVED WITHOUT DIFFICULTY. PT TRANSFERRED TO [facility] VIA WHEELCHAIR. BELONGINGS WITH PT AND PT'S SPOUSE.
== END 2018-12-28 14:35 | DRG 897 ==
LOC: DELPENDDIS → ER 16:50 → PCU 23:08 → ICUE 12-22 08:09 → ENPENDDIS 12-27 10:46 → MEDS 12-27 16:39
PROVIDERS: Hospitalist; Internal Medicine; Nurse Practitioner Acute Care; Physician Assistant; ADMIT Internal Medicine
DX: F10.231 Alcohol dependence with withdrawal delirium (principal); E87.1 Hypo-osmolality and hyponatremia; K92.1 Melena; E87.6 Hypokalemia; D69.6 Thrombocytopenia, unspecified; F07.81 Postconcussional syndrome; I95.9 Hypotension, unspecified
CPT/HCPCS: 36415; 70450; 70496; 70498; 80048; 80053; 81001; 82272; 83735; 84100; 84132; 85025; 85027; 87086; 94762; 96361; 96374; 96375; 97110; 97116; 97162; 97166; 97530; 97535; 99285-25; A9270; G0480; J0780; J1650; J2060; J2405; J3475; J3480; J7030; J7060; Q9967

== ENCOUNTER → 2019-02-19 | Outpatient (CLI) | payer OTHER ==
[~2019-02-19] MED LIST changes: +Hydrochloroth12.5 MG PO; +ONDA4ODT MM; +Prinivil10 MG PO
[2019-02-22 01:07] LABS: HPV 16 Negative (Negative); HPV 18 Negative (Negative); HPV OTHER HR TYPES Negative (Negative)
== END | disposition home or self-care (01) ==
LOC: LAB SHORT 17:42 → LAB 17:42
PROVIDERS: Obstetrics & Gynecology Gynecology
DX: Z12.4 Encounter for screening for malignant neoplasm of cervix (principal); Z91.89 Other specified personal risk factors, not elsewhere classified
CPT/HCPCS: 87624; G0123

== ENCOUNTER 2019-07-08 00:54 | Emergency (ER) | payer OTHER ==
[~2019-07-08] VITALS: Ht 175.3 cm; Wt 72.6 kg
[2019-07-08 01:25] LABS: Source, Urine Clean Catch
[2019-07-08 01:27] LABS: BASOPHILS ABSOLUTE AUTO 0.14 K/mm3 (0.00-0.23); BASOPHILS PERCENT AUTO 1 % (0-2); EOSINOPHILS ABSOLUTE AUTO 0.04 K/mm3 (0.00-0.68); EOSINOPHILS PERCENT AUTO 0 % (0-6); Hematocrit 43.4 % (33.0-51.0); Hemoglobin 14.1 g/dL (11.5-16.0); IMMATURE GRAN ABSOLUTE AUTO 0.07 K/mm3 (0.00-0.10); IMMATURE GRAN PERCENT AUTO 1 % (0-1); LYMPHOCYTES ABSOLUTE AUTO 1.98 K/mm3 (0.84-5.20); LYMPHOCYTES PERCENT AUTO 19 % (21-46); MONOCYTES PERCENT AUTO 9 % (4-13); Mean Corpuscular HGB 34.1 pg (26.0-34.0); Mean Corpuscular HGB Conc 32.5 g/dL (31.5-36.5); Mean Corpuscular Volume 105 fL (80-100); Mean Platelet Volume 9.7 fL (9.1-12.4); NEUTROPHILS PERCENT AUTO 70 % (41-73); Platelet Count 106 K/mm3 (150-400); RDW Coefficient Variation 12.3 % (11.7-14.2); RDW Standard Deviation 48.2 fL (35.1-46.3); Red Blood Cell Count 4.14 M/mm3 (3.80-5.20); White Blood Cell Count 10.53 K/mm3 (4.00-11.30)
[2019-07-08 01:37] LABS: Appearance, Urine Clear (Clear); Bilirubin, Urine Neg (Neg); Blood, Urine 5+ (Neg); Color, Urine Amber (P-Yellow); Glucose Qualitative, Urine Neg (Neg); Ketones, Urine 1+ (Neg); Leukocyte Esterase, Urine 1+ (Neg); Nitrite, Urine Neg (Neg); Protein, Urine 3+ (Neg); Urobilinogen, Urine NORM (Normal)
[2019-07-08 01:48] LABS: Alanine Aminotransfer (ALT/SGP 37 U/L (12-78); Alk Phos 67 U/L (50-136); Anion Gap 25 mmol/L (6-16); Aspartate Aminotrans (AST/SGOT 59 U/L (12-37); Bilirubin, Total 1.6 mg/dL (0.1-1.0); Blood Urea Nitrogen 6 mg/dL (8-24); CO2, Blood 10 mmol/L (21-32); Calcium, Blood 8.1 mg/dL (8.5-10.1); Chloride, Blood 95 mmol/L (98-108); Creatinine, Blood 0.54 mg/dL (0.40-1.00); Ethanol (Alcohol), Blood, Med 5 mg/dL; Globulin, Blood 4.2 g/dL (2.2-4.0); Glomerular Filtration Rate >60 (60-); Glucose, Blood 184 mg/dL (70-99); Magnesium, Blood 2.1 mg/dL (1.6-2.4); Phosphorus, Blood 3.5 mg/dL (2.5-4.9); Potassium, Blood 3.8 mmol/L (3.5-5.5); Sodium, Blood 130 mmol/L (136-145); Total Protein, Blood 8.2 g/dL (6.4-8.2); Troponin I <0.015 ng/mL (0.000-0.040)
[2019-07-08 01:58] LABS: U Amphetamine Screen Not Detected; U Barbituate Screen Not Detected; U Benzodiazapine Screen Not Detected; U Buprenorphine Screen Not Detected; U Cannabinoids Screen Not Detected; U Cocaine Screen Not Detected; U Methadone Screen Not Detected; U Methamphetamine Screen Not Detected; U Opiates Screen Not Detected; U Oxycodone Screen Not Detected; U Phencyclidine Screen Not Detected; U Propoxyphene Screen Not Detected
[2019-07-08 01:59] LABS: Bacteria Mod /hpf; Red Blood Cells, Urine 50-100 /hpf (0-2); Squamous Epithelial Cells Mod /hpf (Few); White Blood Cells, Urine 0-2 /hpf (0-5)
== END 2019-07-08 02:35 | disposition home or self-care (01) ==
LOC: ER 00:54
PROVIDERS: Emergency Medicine
DX: F10.239 Alcohol dependence with withdrawal, unspecified (principal); E86.0 Dehydration; Z88.5 Allergy status to narcotic agent; Z88.0 Allergy status to penicillin; Z79.899 Other long term (current) drug therapy; Z87.891 Personal history of nicotine dependence; Y90.0 Blood alcohol level of less than 20 mg/100 ml
CPT/HCPCS: 36415; 80053; 81001; 83690; 83735; 84100; 84145; 84484; 85025; 87086; 93005; 93010; 96361; 96374; 99285-25; G0480; J2060; J7030

== ENCOUNTER 2019-12-02 04:54 | Inpatient (IN) | payer OTHER ==
[~2019-12-02] VITALS: Ht 172.7 cm; Wt 68.0 kg
[~2019-12-02 04:54] MED LIST changes: -ESTRADIOL1 MG PO
[2019-12-02 06:01] LABS: BASOPHILS ABSOLUTE AUTO 0.12 K/mm3 (0.00-0.23); BASOPHILS PERCENT AUTO 2 % (0-2); EOSINOPHILS ABSOLUTE AUTO 0.11 K/mm3 (0.00-0.68); EOSINOPHILS PERCENT AUTO 2 % (0-6); Hematocrit 34.2 % (33.0-51.0); Hemoglobin 11.8 g/dL (11.5-16.0); IMMATURE GRAN ABSOLUTE AUTO 0.04 K/mm3 (0.00-0.10); IMMATURE GRAN PERCENT AUTO 1 % (0-1); LYMPHOCYTES ABSOLUTE AUTO 1.24 K/mm3 (0.84-5.20); LYMPHOCYTES PERCENT AUTO 17 % (21-46); MONOCYTES ABSOLUTE AUTO 0.96 K/mm3 (0.16-1.47); MONOCYTES PERCENT AUTO 13 % (4-13); Mean Corpuscular HGB 34.4 pg (26.0-34.0); Mean Corpuscular HGB Conc 34.5 g/dL (31.5-36.5); Mean Corpuscular Volume 100 fL (80-100); Mean Platelet Volume 8.8 fL (9.1-12.4); NEUTROPHILS ABSOLUTE AUTO 4.81 K/mm3 (1.96-9.15); NEUTROPHILS PERCENT AUTO 66 % (41-73); Platelet Count 216 K/mm3 (150-400); RDW Coefficient Variation 13.2 % (11.7-14.2); RDW Standard Deviation 48.1 fL (35.1-46.3); Red Blood Cell Count 3.43 M/mm3 (3.80-5.20); White Blood Cell Count 7.28 K/mm3 (4.00-11.30)
[2019-12-02 06:21] LABS: Alanine Aminotransfer (ALT/SGP 36 U/L (12-78); Albumin, Blood 2.8 g/dL (3.4-5.0); Albumin/Globulin Ratio 0.7 (0.8-1.8); Alk Phos 116 U/L (50-136); Anion Gap 10 mmol/L (6-16); Aspartate Aminotrans (AST/SGOT 50 U/L (12-37); Bilirubin, Total 0.8 mg/dL (0.1-1.0); Blood Urea Nitrogen 2 mg/dL (8-24); CO2, Blood 25 mmol/L (21-32); Calcium, Blood 8.4 mg/dL (8.5-10.1); Chloride, Blood 96 mmol/L (98-108); Globulin, Blood 3.8 g/dL (2.2-4.0); Glomerular Filtration Rate >60 (60-); Glucose, Blood 87 mg/dL (70-99); Potassium, Blood 3.4 mmol/L (3.5-5.5); Sodium, Blood 131 mmol/L (136-145); Total Protein, Blood 6.6 g/dL (6.4-8.2); Troponin I <0.015 ng/mL (0.000-0.040)
[2019-12-02] MEDS ORDERED: OMEP20ER PO (07:29)
[2019-12-02 08:20] LABS: International Normalized Ratio 1.02; Prothrombin Time Results 10.9 Sec (9.7-11.5)
--- NOTE | 2019-12-02 09:35 | NUR ---
PATIENT ARRIVED FROM ED. SHE IS A&O. 1PA OUT OF BED. SHE REPORTS PAIN IN CHEST AND EPIGASTRIC AREA THAT IS MORE SIGNIFICANT WHEN SHE SWALLOWS. ORIENTED TO ROOM AND CALL SYSTEM. VSS AT THIS TIME.
--- NOTE | 2019-12-02 11:26 | NUR ---
History, Chart, Medications and Allergies reviewed before start of procedure. Lungs clear T/O to Auscultation. Patient confirms NPO status and agrees with scheduled surgery. Pre-Op teaching done. Pt verbalizes understanding.
--- NOTE | 2019-12-02 11:45 | NUR ---
12/02/19 1145 [place] Hannah History, Chart, Medications and Allergies reviewed before start of procedure.PATIENT DETERMINED TO BE ASA APPROPRIATE FOR PROPOFOL SEDATION PRIOR TO START OF PROCEDURE BY MONITOR INTACT WITH CONTINUOUS PULSE OXIMETRY AND INTERMITTENT BP. 3-LEAD EKG REVIEWED WITH PHYSICIAN PRIOR TO START OF PROCEDURE.O2 VIA N/C INTACT THROUGHOUT SEDATION/PROCEDURE.
--- NOTE | 2019-12-02 13:36 | NUR ---
PATIENT RETURNED FROM EGD AND FOUND TO HAVE THRUSH ALL T/O. PO DIFLUCAN ORDERED. ATTEMPTED TO TAKE BUT PATIENT WAS UNABLE AND ADAMENTLY REFUSING TO TAKE. DR SWITCHED TO IV. PATIENT DENIES NEEDS AT THIS TIME. WILL CONT TO MONITOR
--- NOTE | 2019-12-02 18:33 | NUR ---
SHIFT SUMMARY NEW ADMIT TODAY FOR CHEST AND EPIGASTRIC PAIN. WENT FOR AN ENDO AND FOUND TO HAVE THRUSH T/O. NEW MEDS ORDERED. ADVANCED TO FULL LIQUID BUT NOT TOLERATING PO WELL AT THIS TIME. ETOH NORMALLY DAILY, CIWA A 3 AT THIS TIME, IT HAS BEEN 2 DAYS SINCE SHE HAS CONSUMED HER USUAL AMOUNT OF ALCOHOL. MEDICATED FOR NAUSEA X2.
[2019-12-03 05:22] LABS: Alanine Aminotransfer (ALT/SGP 24 U/L (12-78); Albumin, Blood 2.3 g/dL (3.4-5.0); Albumin/Globulin Ratio 0.7 (0.8-1.8); Alk Phos 94 U/L (50-136); Anion Gap 7 mmol/L (6-16); Aspartate Aminotrans (AST/SGOT 32 U/L (12-37); Blood Urea Nitrogen 4 mg/dL (8-24); Bun/Creatinine Ratio 7.7 (12.0-20.0); CO2, Blood 23 mmol/L (21-32); Calcium, Blood 7.6 mg/dL (8.5-10.1); Chloride, Blood 104 mmol/L (98-108); Creatinine, Blood 0.52 mg/dL (0.40-1.00); Globulin, Blood 3.3 g/dL (2.2-4.0); Glomerular Filtration Rate >60 (60-); Glucose, Blood 93 mg/dL (70-99); Potassium, Blood 3.5 mmol/L (3.5-5.5); Sodium, Blood 134 mmol/L (136-145); Total Protein, Blood 5.6 g/dL (6.4-8.2)
--- NOTE | 2019-12-03 07:21 | NUR ---
SHIFT SUMMARY AOX3-FORGETFUL OF DATE & STATED IT WAS 2009 LAST NIGHT. CIWAS RANGING 3-8 T/O NIGHT, GAVE 1MG IV ATIVAN 1X FOR CIWA OF 8. TREMORS TO BUE. PT NAUSEATED LAST NIGHT & GAVE REGLAN 1X & ZOFRAN 1X-NO EMESIS, DENIES NAUSEA THIS AM. DENIES DYSPNEA. REPORTED 8/10 PAIN RUQ ABD LAST NIGHT. GAVE CARAFATE & PROTONIX PER ORDERS FOR ENRIKE ESOPHAGITIS, PER ORDERS. TOLERATING VERY SMALL AMOUNTS OF LIQUID. HAD 2 SMALL BROWN MUCUS/LOOSE BM LAST NIGHT. CALL LIGHT IN REACH & BED ALARM IN PLACE.
--- NOTE | 2019-12-03 11:11 | NUR ---
CIWA SCORES THIS AM ZERO, PT STATE ONLY SYMPTOM MILD H/A. SHE STATE FEELING IMPROVED. FENTANYL 25MCG GIVEN FOR MID UPPER ABD PAIN. SHE STATE SWALLOWING HAS IMPROVED, ABLE TO TAKE PILLS WHOLE, TOLERATE FL DIET.
--- NOTE | 2019-12-03 12:01 | NUR ---
LAB CALL w TROP 3.48, DR GARZA NOTIFIED, STATE MAY BE R/T EGD YESTERDAY, WILL REVIEW w DR ABBASI, NO NEW ORDERS @ THIS TIME. PT STATE MILD MID UPPER ABD PAIN 2/10, STATE IMPROVED FROM PREVIOUS DAYS. DR MCINTOSH IN TO SEE PT.
--- NOTE | 2019-12-03 17:52 | NUR ---
SUMMARY PT IS A/O X4, 1 ASSIST TO BR/BSC, GAIT UNSTEADY. SHE STATE MID UPPER ABD PAIN R/T ESOPHAGEAL THRUSH, 09/04 THIS AM, FENTANYL GIVEN FOR RELIEF. STATE DYSPHAGIA IMPROVING, TOLERATING FL DIET, ABLE TO SWALLOW PILLS WHOLE TODAY. SHE HAS C/O MILD NAUSEA ONCE TODAY, ZOFRAN GIVEN FOR RELIEF. APPROX 1200 LAB CALL TO REPORT CH TROP 3.48, DR GARZA, RESIDENT WORKING w DR ABBASI NOTIFIED. ORDER CARDIAC CONSULT. DR ABBASI IN TO SEE PT. DR CHI (CARDIOLOGY) IN FOR CONSULT THEN CONFERRED w DR ABBASI, ECHO ORDERED. PT STATE NO NEW CHEST PAIN ONLY SAME DISCOMFORT MID UPPER ABD. SHE HAS HX DAILY ETOH USE, CIWA HAVE BEEN MINIMAL 0-2, NO BUE TREMOR @ THIS TIME, MILD H/A EARLIER TODAY, TYLENOL GIVEN, VS HAVE BEEN STABLE. IN ROOM MOST OF DAY, HAVE PROVIDED UPDATES & ANSWERED QUESTIONS.
--- NOTE | 2019-12-03 19:33 | NUR ---
DR GARZA & DR ABBASI BACK TO ADDRESS CH TROP w PT AFTER CONSULTING GI & CARDIOLOGY. WILL START HEP GTT, NPO AFTER MN FOR POSSIBLE CARDIAC CATH TOMORROW. PT WILL NOTIFY & UPDATE. SHE IS INITIALLY DISCOURAGED HOWEVER REALIZES IMPORTANCE OF INTERVENTIONS & THANKFUL IN HOSP DURING CARDIAC EVENT. CLAIMS CLERK START 2ND IV SITE. NEW MEDS GIVEN/ORDER. REPORT TO NOC RN.
[2019-12-04 03:15] LABS: BASOPHILS ABSOLUTE AUTO 0.08 K/mm3 (0.00-0.23); BASOPHILS PERCENT AUTO 2 % (0-2); EOSINOPHILS ABSOLUTE AUTO 0.15 K/mm3 (0.00-0.68); EOSINOPHILS PERCENT AUTO 3 % (0-6); Hematocrit 32.2 % (33.0-51.0); Hemoglobin 10.9 g/dL (11.5-16.0); IMMATURE GRAN ABSOLUTE AUTO 0.03 K/mm3 (0.00-0.10); IMMATURE GRAN PERCENT AUTO 1 % (0-1); LYMPHOCYTES ABSOLUTE AUTO 1.78 K/mm3 (0.84-5.20); LYMPHOCYTES PERCENT AUTO 35 % (21-46); MONOCYTES ABSOLUTE AUTO 0.62 K/mm3 (0.16-1.47); MONOCYTES PERCENT AUTO 12 % (4-13); Mean Corpuscular HGB 34.4 pg (26.0-34.0); Mean Corpuscular HGB Conc 33.9 g/dL (31.5-36.5); Mean Corpuscular Volume 102 fL (80-100); Mean Platelet Volume 8.9 fL (9.1-12.4); NEUTROPHILS PERCENT AUTO 48 % (41-73); Platelet Count 189 K/mm3 (150-400); RDW Coefficient Variation 12.9 % (11.7-14.2); RDW Standard Deviation 48.8 fL (35.1-46.3); Red Blood Cell Count 3.17 M/mm3 (3.80-5.20); White Blood Cell Count 5.16 K/mm3 (4.00-11.30)
[2019-12-04 03:32] LABS: International Normalized Ratio 1.06; Prothrombin Time Results 11.3 Sec (9.7-11.5)
[2019-12-04 03:34] LABS: Albumin, Blood 2.4 g/dL (3.4-5.0); Anion Gap 6 mmol/L (6-16); Blood Urea Nitrogen 2 mg/dL (8-24); CO2, Blood 23 mmol/L (21-32); Calcium, Blood 7.8 mg/dL (8.5-10.1); Chloride, Blood 106 mmol/L (98-108); Creatinine, Blood 0.51 mg/dL (0.40-1.00); Glomerular Filtration Rate >60 (60-); Glucose, Blood 107 mg/dL (70-99); Phosphorus, Blood 2.4 mg/dL (2.5-4.9); Potassium, Blood 3.7 mmol/L (3.5-5.5); Sodium, Blood 135 mmol/L (136-145)
--- NOTE | 2019-12-04 05:27 | NUR ---
SHIFT SUMMARY AOX4. VSS. PT HAD CRITICAL TROPONIN YESTERDAY & CARDIAC CONSULT WAS PLACED, THEN ECHO WAS ORDERED FOR TODAY 12/04/19. ASKED DR FANG FOR TELE ORDER, TELE HAS BEEN NSR @71. PT HAS BEEN NPO SINCE MIDNIGHT FOR POSSIBLE CARDIAC CATH. HEPARIN DRIP IS RUNNING 18.5ML/HR. CIWAS RANGING 2-4 FOR NAUSEA, [place] & ANXIETY. MEDICATED c REGLAN 1X FOR NAUSEA, NO FURTHER C/O NAUSEA. PT REPORTS HER THROAT IS FEELING BETTER & SHE'S BEEN ABLE TO TOLERATE FLUIDS. REPORTS RUQ ABD PAIN, MEDICATED 2X c 25MCG FENTANYL, PT STATED MILD RELIEF. CALL LIGHT IN REACH. WCTM.
--- NOTE | 2019-12-04 10:14 | NUR ---
DR CHI IN APPROX 0700, ORDER TO HOLD HEP GTT @ THIS TIME FOR POSSIBLE CARDIAC CATH. EXPLAIN TO PT & HER , CONSENT SIGNED. PHARMACY NOTIFIED. DR GARZA NOTIFIED.
--- NOTE | 2019-12-04 11:45 | NUR ---
[facility] CALL TO STATE WILL BE UP TO TAKE PT OUT FOR ANGIOGRAM, PT & INFORMED. AUTOMOTIVE MANAGER NOTIFIED. PT WILL TRANSFER TO PCU AFTER PROCEDURE. BELONGINGS GATHERED. PT OUT TO [facility] APPROX 1100.
--- NOTE | 2019-12-04 11:49 | NUR ---
TRANSFER OF CARE TRANSFER OF CARE RECIEVED FROM JAQUELINE Caballero RN. PT A&O3 AND DENIES ANY PAIN AT THIS TIME. R RADIAL SITE CDI-NO HEMATOMA NOTED. TAWAITING PCU BED. WILL CONTINUE TO MONITOR.
--- NOTE | 2019-12-04 12:52 | NUR ---
1300 PATINET READY TO TRANSFER TO PCU#13, AT THE BEDSIDE. TR BAND IN PLACE WITH 11 IN THE BAND. PATIENT AWAKE AND ALERT. 2/10 PAIN TO THE BACK FROM SITTING. TRANSFERED TO PCU VIA WHEELCHAIR.
--- NOTE | 2019-12-04 18:23 | NUR ---
SHIFT SUMMARY: PT A&OX4 T/OUT SHIFT IN PCU. TR BAND DEFLATED TO 0 WITH NO COMPLICATIONS, TR BAND CONTINUES IN PLACE AT THIS TIME. PT DENIES CP, C/O MILD RUQ PAIN AND HEADACHE, PT MEDICATED WITH TYLENOL PRN. PANFILO MCGEEAL PERFORMED, NO FINDINGS THAT WOULD INDICATE NEED FOR ATIVAN. PT C/O FEELING DOWN/DEPRESSED, STATES SHE KNOWS ANGIOGRAM RESULTS ARE GOOD BUT STILL FEELING DOWN. THIS RN AND PT HAD DISCUSSION RE: IMPACT OF EVENTS AND HOW IT MIGHT TAKE TIME TO PROCESS AND FEEL BETTER, BUT THAT WE WILL CONTINUE TO MONITOR HER FEELINGS, PT V/U AND IS AGREEABLE TO PLAN. WILL CONTINUE TO MONITOR PT AND TREAT ACCORDINGLY UNTIL SHIFT CHANGE.
--- NOTE | 2019-12-05 04:29 | NUR ---
ASSUMED CARE OF PATIENT AT 1915, PATIENT'S TR BAND WITHOUT HEMATOMA OR BRUISING AROUND IT'S SITE AND FULLY DEFLATED. DRESSING CHANGED FOR A 2X2 GAUZE AND TEGADERM. NO COMPLAINTS OF PAIN OR SOB. SHE IS RESTING AND SHOWING NO SIGNS OF DISTRESS. SHE WAS EDUCATED ON THE NEED FOR HER TELEMETRY WIRING AFTER SHE HAD REMOVED HER WIRING MID SHIFT. CALL LIGHT WITHIN REACH, WILL CONTINUE TO MONITOR UNTIL END OF SHIFT
[2019-12-05 05:19] LABS: BASOPHILS ABSOLUTE AUTO 0.08 K/mm3 (0.00-0.23); BASOPHILS PERCENT AUTO 2 % (0-2); EOSINOPHILS ABSOLUTE AUTO 0.13 K/mm3 (0.00-0.68); EOSINOPHILS PERCENT AUTO 3 % (0-6); Hematocrit 31.7 % (33.0-51.0); Hemoglobin 10.6 g/dL (11.5-16.0); IMMATURE GRAN ABSOLUTE AUTO 0.02 K/mm3 (0.00-0.10); IMMATURE GRAN PERCENT AUTO 1 % (0-1); LYMPHOCYTES PERCENT AUTO 31 % (21-46); MONOCYTES ABSOLUTE AUTO 0.61 K/mm3 (0.16-1.47); MONOCYTES PERCENT AUTO 16 % (4-13); Mean Corpuscular HGB 34.5 pg (26.0-34.0); Mean Corpuscular HGB Conc 33.4 g/dL (31.5-36.5); Mean Corpuscular Volume 103 fL (80-100); Mean Platelet Volume 9.2 fL (9.1-12.4); NEUTROPHILS ABSOLUTE AUTO 1.89 K/mm3 (1.96-9.15); NEUTROPHILS PERCENT AUTO 48 % (41-73); Platelet Count 191 K/mm3 (150-400); RDW Coefficient Variation 12.9 % (11.7-14.2); Red Blood Cell Count 3.07 M/mm3 (3.80-5.20); White Blood Cell Count 3.93 K/mm3 (4.00-11.30)
[2019-12-05 05:57] LABS: Anion Gap 8 mmol/L (6-16); Blood Urea Nitrogen 1 mg/dL (8-24); Bun/Creatinine Ratio 1.9 (12.0-20.0); CO2, Blood 21 mmol/L (21-32); Calcium, Blood 7.7 mg/dL (8.5-10.1); Chloride, Blood 105 mmol/L (98-108); Creatinine, Blood 0.53 mg/dL (0.40-1.00); Glomerular Filtration Rate >60 (60-); Glucose, Blood 100 mg/dL (70-99); Potassium, Blood 3.4 mmol/L (3.5-5.5); Sodium, Blood 134 mmol/L (136-145)
--- NOTE | 2019-12-05 07:35 | NUR ---
Pt states that she has been dry heaving "all night" and has had some clear emesis, but not much as she "has not been eating". States zofran given about 30 minutes ago has not helped at all . will try reglan at this time.
[2019-12-05 09:24] LABS: CHOL/HDL RATIO 1.9; Cholesterol 118 mg/dL (50-200); HDL Cholesterol 61 mg/dL (>39); LDL/HDL RATIO 0.8; Low Density Lipoprotein Chol 47 mg/dL (0-110); Triglycerides 50 mg/dL (30-160); Very Low Density Lipoprot Chol 10 mg/dL (6-32)
[2019-12-05 14:11] LABS: FINAL INTERPRETATION Negative (.); HIV 1 AB Negative (Negative); HIV 2 AB Negative (Negative)
--- NOTE | 2019-12-05 16:30 | NUR ---
PT CONTINUES ALERT AND ORIENTED. PT MEDICATED DURING THE AM FOR C/O N/V SINCE 0100. PT STATES RELIEF OF NAUSEA TO MILD. PT ALSO MEDICATED FOR C/O HEADACHE, STATES IMPROVEMENT OF PAIN. CIWA ASSESSMENTS REVEAL NO NEED FOR ATIVAN. PT CONTINUES TO BE INDEPENDENT IN THE ROOM. R RADIAL SITE WNL WITH SOME BRUISING NOTED. REPORT GIVEN TO CRISSY SORIANO IN MEDICAL DEPT TO RECEIVE PT.
--- NOTE | 2019-12-05 16:43 | NUR ---
Pt assisted to wheelchair and taken up to medical floor by PEYTON Ibarra
--- NOTE | 2019-12-05 17:42 | NUR ---
SHIFT SUMMARY PATIENT TO THE MEDICAL FLOOR FROM PCU LATE THIS AFTERNOON. PATIENT'S IN THE ROOM WITH PATIENT. PATIENT ALERT AND ORIENTED UPON ARRIVAL. PATIENT SITTING UP IN BED WATCHING TELEVISION THE REMAINDER OF THIS SHIFT. PATIENT CURRENTLY EATING DINNER.
--- NOTE | 2019-12-06 03:43 | NUR ---
PATIENT REPORTS S/SX OF BLADDER INFECTION. HOSPITALIST DR FAJARDO ORDERED URINALYSIS WITH CULTURE. UA COLLECTED AND SENT TO LAB.
[2019-12-06 03:52] LABS: Source, Urine Clean Catch
--- NOTE | 2019-12-06 04:04 | NUR ---
SHIFT SUMMARY PATIENT REPORTED POSSIBLE BLADDER INFECTION WITH S/SX. HOSPITALIST DR URBINA NOTIFIED AND ORDERED URINALYSIS WITH CULTURE. COLLECTED AND SENT TO LAB. AXOX 4 AND ONE ASSIST TO BSC. TAKES MEDICATION WHOLE IN APPLE SAUCE. PIV REMAINS INTACT. DENIES PAIN,SOB, AND N/V. VSS/AFEBRILE. CIWA SCORES ONE FOR ANXIETY. CALL LIGHT IN REACH. BED IN LOWEST POSITION. WILL CONTINUE TO MONITOR UNTIL DAY SHIFT NURSE ASSUMES CARE.
[2019-12-06 04:05] LABS: Bilirubin, Urine Neg (Neg); Blood, Urine 4+ (Neg); Glucose Qualitative, Urine Neg (Neg); Ketones, Urine 2+ (Neg); Leukocyte Esterase, Urine 3+ (Neg); Nitrite, Urine Pos (Neg); Protein, Urine 2+ (Neg); Specific Gravity, Urine 1.015 (1.003-1.022); Urobilinogen, Urine NORM (Normal)
[2019-12-06 04:17] LABS: Appearance, Urine Turbid (Clear); Color, Urine Yellow (P-Yellow)
[2019-12-06 04:19] LABS: Bacteria Many /hpf; Squamous Epithelial Cells Rare /hpf (Few); White Blood Cells, Urine TNTC /hpf (0-5)
[2019-12-06 05:12] LABS: BASOPHILS ABSOLUTE AUTO 0.08 K/mm3 (0.00-0.23); BASOPHILS PERCENT AUTO 2 % (0-2); EOSINOPHILS ABSOLUTE AUTO 0.14 K/mm3 (0.00-0.68); EOSINOPHILS PERCENT AUTO 3 % (0-6); Hematocrit 32.9 % (33.0-51.0); Hemoglobin 10.9 g/dL (11.5-16.0); IMMATURE GRAN ABSOLUTE AUTO 0.02 K/mm3 (0.00-0.10); IMMATURE GRAN PERCENT AUTO 0 % (0-1); LYMPHOCYTES ABSOLUTE AUTO 1.36 K/mm3 (0.84-5.20); LYMPHOCYTES PERCENT AUTO 26 % (21-46); MONOCYTES ABSOLUTE AUTO 0.85 K/mm3 (0.16-1.47); MONOCYTES PERCENT AUTO 16 % (4-13); Mean Corpuscular HGB Conc 33.1 g/dL (31.5-36.5); Mean Corpuscular Volume 103 fL (80-100); Mean Platelet Volume 8.8 fL (9.1-12.4); NEUTROPHILS ABSOLUTE AUTO 2.82 K/mm3 (1.96-9.15); NEUTROPHILS PERCENT AUTO 54 % (41-73); Platelet Count 212 K/mm3 (150-400); Red Blood Cell Count 3.21 M/mm3 (3.80-5.20); White Blood Cell Count 5.27 K/mm3 (4.00-11.30)
[2019-12-06 05:41] LABS: Anion Gap 9 mmol/L (6-16); Blood Urea Nitrogen 1 mg/dL (8-24); Bun/Creatinine Ratio 2.1 (12.0-20.0); CO2, Blood 19 mmol/L (21-32); Calcium, Blood 7.8 mg/dL (8.5-10.1); Chloride, Blood 106 mmol/L (98-108); Creatinine, Blood 0.48 mg/dL (0.40-1.00); Glomerular Filtration Rate >60 (60-); Glucose, Blood 101 mg/dL (70-99); Potassium, Blood 3.4 mmol/L (3.5-5.5); Sodium, Blood 134 mmol/L (136-145)
--- NOTE | 2019-12-06 19:16 | NUR ---
SHIFT SUMMARY: NO ACUTE CHANGES TO REPORT THIS SHIFT. PT A&O;HX ETOH; SLIGHT ANXIETY & HEADACHE; COOPERATIVE WITH CARE. MEDICATED FOR HEADACE PAIN PER EMAR. EGD ON 12/01; DUODENAL EROSION. BANANA BAG & IV ABX CONTINUING. REPORT GIVEN TO ONCOMING RN.
--- NOTE | 2019-12-07 05:10 | NUR ---
SHIFT SUMMARY: 64 Y/O FEMALE RESTED COMFORTABLY ALL SHIFT; PT ALERT AND ORIENTED X 4; CIWA 1; DENIES PAIN; BED LOW POSITION WITH CALL LIGHT AT SIDE.
[2019-12-07 05:14] LABS: BASOPHILS ABSOLUTE AUTO 0.09 K/mm3 (0.00-0.23); BASOPHILS PERCENT AUTO 2 % (0-2); EOSINOPHILS ABSOLUTE AUTO 0.14 K/mm3 (0.00-0.68); EOSINOPHILS PERCENT AUTO 3 % (0-6); Hematocrit 32.6 % (33.0-51.0); IMMATURE GRAN ABSOLUTE AUTO 0.02 K/mm3 (0.00-0.10); IMMATURE GRAN PERCENT AUTO 0 % (0-1); LYMPHOCYTES ABSOLUTE AUTO 1.45 K/mm3 (0.84-5.20); LYMPHOCYTES PERCENT AUTO 32 % (21-46); MONOCYTES ABSOLUTE AUTO 0.81 K/mm3 (0.16-1.47); MONOCYTES PERCENT AUTO 18 % (4-13); Mean Corpuscular HGB 34.2 pg (26.0-34.0); Mean Corpuscular HGB Conc 33.7 g/dL (31.5-36.5); Mean Corpuscular Volume 101 fL (80-100); Mean Platelet Volume 8.9 fL (9.1-12.4); NEUTROPHILS ABSOLUTE AUTO 2.02 K/mm3 (1.96-9.15); NEUTROPHILS PERCENT AUTO 45 % (41-73); Platelet Count 217 K/mm3 (150-400); RDW Coefficient Variation 12.9 % (11.7-14.2); RDW Standard Deviation 48.5 fL (35.1-46.3); Red Blood Cell Count 3.22 M/mm3 (3.80-5.20); White Blood Cell Count 4.53 K/mm3 (4.00-11.30)
[2019-12-07 06:01] LABS: Anion Gap 8 mmol/L (6-16); Blood Urea Nitrogen <1 mg/dL (8-24); Bun/Creatinine Ratio Unable to Calculate (12.0-20.0); CO2, Blood 22 mmol/L (21-32); Calcium, Blood 7.9 mg/dL (8.5-10.1); Chloride, Blood 104 mmol/L (98-108); Creatinine, Blood 0.49 mg/dL (0.40-1.00); Glomerular Filtration Rate >60 (60-); Glucose, Blood 95 mg/dL (70-99); Potassium, Blood 3.3 mmol/L (3.5-5.5); Sodium, Blood 134 mmol/L (136-145)
[2019-12-07] MEDS ORDERED: OMEP20ER PO (12:09)
[2019-12-07] MEDS ORDERED: CEFU500T30 PO (12:10)
[2019-12-07] MEDS ORDERED: CARV3.125 PO (12:10)
[2019-12-07] MEDS ORDERED: FLUC200 PO (12:11)
[2019-12-07] MEDS ORDERED: ONDA4ODT MM (12:11)
[2019-12-07] MEDS ORDERED: ASPI81CH PO (12:12)
[2019-12-07] MEDS ORDERED: Carafate1 GM/10 ML PO (12:12)
--- NOTE | 2019-12-07 16:57 | NUR ---
PATIENT DISCHARGED AT 5309
== END 2019-12-07 17:00 | disposition home or self-care (01) | DRG 383 ==
LOC: ER 04:54 → MEDS 04:55 → UNDODEPER 09:30 → MEDS 12-03 14:53 → PCU 12-04 12:25 → MEDS 12-05 16:48 → ENPENDDIS 12-07 11:24 → MEDS 12-07 17:00
PROVIDERS: Emergency Medicine; Family Medicine; Internal Medicine; Nurse Practitioner Acute Care; Student in an Organized Health Care Education/Training Program; ADMIT Internal Medicine
PROC: 0DD38ZX Extraction of Lower Esophagus, Via Natural or Artificial Opening Endoscopic, Diagnostic (ICD-10-PCS; 2019-12-02)
PROC: 0DB98ZX Excision of Duodenum, Via Natural or Artificial Opening Endoscopic, Diagnostic (ICD-10-PCS; principal; 2019-12-02 11:30)
PROC: 4A023N7 Measurement of Cardiac Sampling and Pressure, Left Heart, Percutaneous Approach (ICD-10-PCS; 2019-12-04)
PROC: B211YZZ Fluoroscopy of Multiple Coronary Arteries using Other Contrast (ICD-10-PCS; 2019-12-04)
DX: K26.9 Duodenal ulcer, unspecified as acute or chronic, without hemorrhage or perforation (principal); I21.4 Non-ST elevation (NSTEMI) myocardial infarction; N30.01 Acute cystitis with hematuria; E87.1 Hypo-osmolality and hyponatremia; B37.81 Candidal esophagitis; K86.1 Other chronic pancreatitis; I10 Essential (primary) hypertension; E87.6 Hypokalemia; E78.5 Hyperlipidemia, unspecified; F10.10 Alcohol abuse, uncomplicated; Z87.891 Personal history of nicotine dependence; L40.9 Psoriasis, unspecified
CPT/HCPCS: 36415; 71045; 76937; 80048; 80053; 80061; 80069; 81001; 83690; 83735; 84484; 85025; 85347; 85610; 85730; 86701; 86702; 88305; 88312; 93005; 93010; 93306; 93458; 94760; 96374; 96375; 99152; 99153; 99285-25; A9270; A9270-GY; C1769; C1894; C9113; J0696; J1450; J1610; J1644; J2060; J2250; J2405; J2704; J2765; J3010; J3411; J3475; J3480; J7030; J7042; J7050; J7120; Q9967; U0002

== ENCOUNTER 2019-12-25 03:57 | Inpatient (IN) | payer OTHER ==
[~2019-12-25] VITALS: Ht 167.6 cm; Wt 71.8 kg
[~2019-12-25 03:57] MED LIST changes: +ASPI81CH PO; +CARV3.125 PO; +CEFU500T30 PO; +Carafate1 GM/10 ML PO; +FLUC200 PO; +OMEP20ER PO
[2019-12-25 04:18] LABS: Source, Urine Catheter
[2019-12-25 04:24] LABS: Bilirubin, Urine Neg (Neg); Blood, Urine 2+ (Neg); Glucose Qualitative, Urine Neg (Neg); Ketones, Urine 1+ (Neg); Leukocyte Esterase, Urine Neg (Neg); Nitrite, Urine Neg (Neg); Protein, Urine Neg (Neg); Specific Gravity, Urine 1.015 (1.003-1.022); Urobilinogen, Urine NORM (Normal)
[2019-12-25 04:32] LABS: International Normalized Ratio 1.02; Prothrombin Time Results 10.9 Sec (9.7-11.5)
[2019-12-25 04:34] LABS: Appearance, Urine Clear (Clear); Color, Urine Yellow (P-Yellow)
[2019-12-25 04:36] LABS: BASOPHILS ABSOLUTE AUTO 0.01 K/mm3 (0.00-0.23); BASOPHILS PERCENT AUTO 0 % (0-2); EOSINOPHILS PERCENT AUTO 0 % (0-6); Hematocrit 30.1 % (33.0-51.0); IMMATURE GRAN ABSOLUTE AUTO 0.05 K/mm3 (0.00-0.10); IMMATURE GRAN PERCENT AUTO 1 % (0-1); LYMPHOCYTES ABSOLUTE AUTO 0.89 K/mm3 (0.84-5.20); LYMPHOCYTES PERCENT AUTO 11 % (21-46); MONOCYTES PERCENT AUTO 7 % (4-13); Mean Corpuscular Volume 87 fL (80-100); Mean Platelet Volume 9.2 fL (9.1-12.4); NEUTROPHILS ABSOLUTE AUTO 6.81 K/mm3 (1.96-9.15); NEUTROPHILS PERCENT AUTO 82 % (41-73); Platelet Count 254 K/mm3 (150-400); RDW Coefficient Variation 11.5 % (11.7-14.2); RDW Standard Deviation 37.2 fL (35.1-46.3); Red Blood Cell Count 3.45 M/mm3 (3.80-5.20); White Blood Cell Count 8.36 K/mm3 (4.00-11.30)
[2019-12-25 04:41] LABS: Acetaminophen, Random <2.0 ug/mL (10.0-30.0); Magnesium, Blood 1.9 mg/dL (1.6-2.4); Troponin I 0.207 ng/mL (0.000-0.040)
[2019-12-25 04:45] LABS: U Amphetamine Screen Not Detected; U Barbituate Screen Not Detected; U Benzodiazapine Screen Not Detected; U Buprenorphine Screen Not Detected; U Cannabinoids Screen Not Detected; U Cocaine Screen Not Detected; U Methadone Screen Not Detected; U Methamphetamine Screen Not Detected; U Opiates Screen Not Detected; U Oxycodone Screen Not Detected; U Phencyclidine Screen Not Detected; U Propoxyphene Screen Not Detected
[2019-12-25 04:52] LABS: Alanine Aminotransfer (ALT/SGP 20 U/L (12-78); Albumin, Blood 2.8 g/dL (3.4-5.0); Albumin/Globulin Ratio 0.8 (0.8-1.8); Alk Phos 138 U/L (50-136); Anion Gap 12 mmol/L (6-16); Aspartate Aminotrans (AST/SGOT 58 U/L (12-37); Bilirubin, Total 1.2 mg/dL (0.1-1.0); Blood Urea Nitrogen 3 mg/dL (8-24); Bun/Creatinine Ratio 6.3 (12.0-20.0); CO2, Blood 30 mmol/L (21-32); Calcium, Blood 7.9 mg/dL (8.5-10.1); Chloride, Blood 64 mmol/L (98-108); Creatinine, Blood 0.48 mg/dL (0.40-1.00); Ethanol (Alcohol), Blood, Med <3 mg/dL; Globulin, Blood 3.5 g/dL (2.2-4.0); Glomerular Filtration Rate >60 (60-); Glucose, Blood 129 mg/dL (70-99); Phosphorus, Blood 2.5 mg/dL (2.5-4.9); Potassium, Blood 2.3 mmol/L (3.5-5.5); Sodium, Blood 106 mmol/L (136-145); Total Protein, Blood 6.3 g/dL (6.4-8.2)
[2019-12-25 05:10] LABS: Bacteria Rare /hpf; Hyaline Casts 0-2 /lpf (0-2); Squamous Epithelial Cells Few /hpf (Few); White Blood Cells, Urine 0-2 /hpf (0-5)
[2019-12-25 05:15] LABS: Hemoglobin 11.5 g/dL (11.5-16.0); Mean Corpuscular HGB 33.3 pg (26.0-34.0); Mean Corpuscular HGB Conc 38.2 g/dL (31.5-36.5)
[2019-12-25 07:13] LABS: Osmolality, Serum 219 mos/KG (275-300)
--- NOTE | 2019-12-25 07:30 | NUR ---
Received report from Martine WOODWARD. Patient is intubated with 8.0 ET and is 27 cm at lips with settings of AC 12, TV 450, FiO2 50% and PEEP 5.0 with sats 96%. He has OG in place and is infusing VHP at 50 ml/hr and 30 ml water flushed Q4. Residuals 40 ml. He has bilateral UE soft wrist restraints to protect lines and tubes from pulling out. He has CL RIJ with dressing intact and site WNL's and is infusing Propofol at 25 mcg/kg/hr and NS TKO. He has 16 Fr Sharp draining to gravity yellow urine. Mid calves to toes dark brown leathery skin flaking bilaterally. He has Powerglide to DENICE , dressing intact and site WNL's and is flushed and SL'd.
--- NOTE | 2019-12-25 07:55 | NUR ---
Patient arrived from ER via gurney and was 4 person slide transfer. She moans and responds only to painful stimuli/ Pupils dialated to 4mm bilaterally. She has She has bilateral 20ga IV's in FA's, dressings inatact and sites WNL's and are flushed and SL'd. She has quad lumen CL in RIJ and is infusing 3% sodium at 30 ml/hr and Potassium 50 ml/hr and started second bag of three. She has 16 Fr Temp scherer draining to gravity dark yellow urine. was present at admit and stated had to go home for an hour. No seizure activity present.
--- NOTE | 2019-12-25 09:30 | NUR ---
Patient continues to be sedated without too many changes. Reduced FiO2 to 35% FiO2 and sats >90%. minimal current secretions with suctioning. Dr Baldwin has been inn room and stated will probably not extubate today. VSS, See EMR. TF continues at same rate and residual 30 ml, re-infused.
--- NOTE | 2019-12-25 09:30 | NUR ---
Patients at bedside. She is slightly more awake and opens both eyes at same time with verbal stimuli, but still does not follow commands. She remains on RA and sats >90%. She resists when moving right arm and is passive with left arm. She has las of three bags of potassium infusing and 3% sodium continues at 30ml/hr. Dr Valentine wants labs repeated at 1300 and then calld VSS. See EMR.
[2019-12-25 09:59] LABS: Albumin, Blood 2.5 g/dL (3.4-5.0); Anion Gap 13 mmol/L (6-16); Blood Urea Nitrogen 3 mg/dL (8-24); CO2, Blood 29 mmol/L (21-32); Calcium, Blood 7.7 mg/dL (8.5-10.1); Chloride, Blood 69 mmol/L (98-108); Glomerular Filtration Rate >60 (60-); Glucose, Blood 118 mg/dL (70-99); Potassium, Blood 2.6 mmol/L (3.5-5.5); Sodium, Blood 111 mmol/L (136-145)
--- NOTE | 2019-12-25 11:37 | NUR ---
dr mackey by and talked with patients mother. Updated her on labs and fluids from Dr Valentine. VSS. See EMR. See to to be more attentive with verbal stimuli, but still does not follow commands. Gross movemnet LE and minimal UE, more right trhan left. She remains on RA and sats >90%.
--- NOTE | 2019-12-25 11:49 | NUR ---
No current changes in vent setting or gtt's. Patient remains unchanged, no new orders. Resting quietly.
[2019-12-25 13:49] LABS: Potassium, Blood 2.6 mmol/L (3.5-5.5)
--- NOTE | 2019-12-25 14:00 | NUR ---
Patient is postively looking to left side only and called Dr Urban and she staed to get MRI. Minimal movement from left arm and reaches up with right to rub face. Dr Donohue ordered another 40 meq Potassium and increase Sodium 3% to 35 ml/hr.
--- NOTE | 2019-12-25 16:51 | NUR ---
Patient continues to look and focus to left side and even when position to right she leans head over to left. Still moves right are more. VSS, See EMR. Just came back from MRI and she tolerated well. Call Dr Urban and verified that she could be off monitor and she staed yes for trip and procedure. Had to full temp scherer and replaced when back with 16Fr. scherer no temp. She has Potassium running and sodium 3% at 35ml's increased by Dr Valentine.
--- NOTE | 2019-12-25 17:51 | NUR ---
Patient awakened a little bit more, she has slurred mumbled speech with her moans. She still stairs out to left side with some mild right sided facial droop. Moves righyt arm and minimal left arm. She remains on RA and sats >90%. Patient has RIJ central line infusinbe 3% sodium at 35 ml/hr and 5th bag of sodium. Called Dr Urban about MRI results.
[2019-12-25 18:30] LABS: Source, Urine Catheter
[2019-12-25 18:32] LABS: Appearance, Urine Cloudy (Clear); Bilirubin, Urine Neg (Neg); Blood, Urine 5+ (Neg); Color, Urine Yellow (P-Yellow); Glucose Qualitative, Urine Neg (Neg); Ketones, Urine 4+ (Neg); Leukocyte Esterase, Urine 3+ (Neg); Nitrite, Urine Neg (Neg); Protein, Urine 2+ (Neg); Urobilinogen, Urine NORM (Normal)
[2019-12-25 19:10] LABS: Bacteria Many /hpf; Red Blood Cells, Urine TNTC /hpf (0-2); Squamous Epithelial Cells Many /hpf (Few); White Blood Cells, Urine TNTC /hpf (0-5)
[2019-12-25 19:56] LABS: Potassium, Blood 3.2 mmol/L (3.5-5.5)
--- NOTE | 2019-12-25 20:15 | NUR ---
3% NS DECREASED FROM 35ML/HR TO 20ML/HR PER ORDER.
--- NOTE | 2019-12-25 21:32 | NUR ---
ASSUMED CARE AT 1900 PT LAYING IN BED MOANING INTERMITTANTLY. DID NOT FOLLOW DIRECTIONS FROM RN AND DID NOT RESPOND TO RN. PT HEAD TURNED TOWARD THE LEFT. HR 98. BP 132/64. RR 21. SERRA IN PLACE AND DRAINING TO GRAVITY. RA O2 SAT >98%. POTASSIUM CHLORIDE 20mEq INFUSING. 3% SODIUM CHLORIDE INFUSING AT 35MLS/HR. SODIUM AND POTASSIUM LABS DRAWN AND SENT. SEE SHIFT ASSESSMENT FOR FULL ASSESSMENT.
--- NOTE | 2019-12-25 21:40 | NUR ---
NOTIFIED DR TONY @ 1999 DR TONY NOTIFIED OF SODIUM AND POTASSIUM LABS. NEW ORDERS FOLLOWED.
[2019-12-25 23:23] LABS: Potassium, Blood 3.4 mmol/L (3.5-5.5)
--- NOTE | 2019-12-25 23:31 | NUR ---
NOTIFIED DR TONY @ 7675 DR TONY NOTIFIED OF PT SODIUM AND POTASSIUM LABS. ORDERS FOLLOWED.
[2019-12-26 04:06] LABS: BASOPHILS ABSOLUTE AUTO 0.02 K/mm3 (0.00-0.23); BASOPHILS PERCENT AUTO 0 % (0-2); EOSINOPHILS ABSOLUTE AUTO 0.07 K/mm3 (0.00-0.68); EOSINOPHILS PERCENT AUTO 1 % (0-6); Hematocrit 27.7 % (33.0-51.0); Hemoglobin 10.1 g/dL (11.5-16.0); IMMATURE GRAN ABSOLUTE AUTO 0.06 K/mm3 (0.00-0.10); IMMATURE GRAN PERCENT AUTO 1 % (0-1); LYMPHOCYTES ABSOLUTE AUTO 1.01 K/mm3 (0.84-5.20); LYMPHOCYTES PERCENT AUTO 17 % (21-46); MONOCYTES ABSOLUTE AUTO 0.53 K/mm3 (0.16-1.47); MONOCYTES PERCENT AUTO 9 % (4-13); Mean Corpuscular HGB 33.1 pg (26.0-34.0); Mean Corpuscular HGB Conc 36.5 g/dL (31.5-36.5); Mean Corpuscular Volume 91 fL (80-100); NEUTROPHILS ABSOLUTE AUTO 4.21 K/mm3 (1.96-9.15); NEUTROPHILS PERCENT AUTO 71 % (41-73); RDW Coefficient Variation 11.4 % (11.7-14.2); RDW Standard Deviation 38.7 fL (35.1-46.3); Red Blood Cell Count 3.05 M/mm3 (3.80-5.20)
[2019-12-26 04:10] LABS: Mean Platelet Volume 9.5 fL (9.1-12.4); Platelet Count 228 K/mm3 (150-400)
[2019-12-26 04:34] LABS: Magnesium, Blood 1.8 mg/dL (1.6-2.4); Uric Acid, Blood 2.4 mg/dL (2.6-6.0)
[2019-12-26 04:53] LABS: Osmolality, Serum 240 mos/KG (275-300)
--- NOTE | 2019-12-26 04:53 | NUR ---
SEIZURE LIKE MOVEMENT PT HAD 2 EPISODES OF SEIZURE LIKE MOVEMENT AROUND 0335 WHERE PT LEFT HAND HAD RHYTHMIC MOVEMENT AND PT LEFT EYE GASE WAS MORE DRASTIC. EPISODES ONLY LASTED A FEW SECONDS. NO OTHER CHANGES TO VITAL SIGNS. PRN ATIVAN GIVEN.
[2019-12-26 04:56] LABS: Alanine Aminotransfer (ALT/SGP 14 U/L (12-78); Albumin, Blood 2.2 g/dL (3.4-5.0); Albumin/Globulin Ratio 0.7 (0.8-1.8); Alk Phos 110 U/L (50-136); Anion Gap 8 mmol/L (6-16); Aspartate Aminotrans (AST/SGOT 44 U/L (12-37); Bilirubin, Total 0.9 mg/dL (0.1-1.0); Blood Urea Nitrogen 3 mg/dL (8-24); Bun/Creatinine Ratio 10.2 (12.0-20.0); CO2, Blood 26 mmol/L (21-32); Calcium, Blood 7.2 mg/dL (8.5-10.1); Chloride, Blood 85 mmol/L (98-108); Creatinine, Blood 0.29 mg/dL (0.40-1.00); Globulin, Blood 3.3 g/dL (2.2-4.0); Glomerular Filtration Rate >60 (60-); Glucose, Blood 90 mg/dL (70-99); Phosphorus, Blood 1.2 mg/dL (2.5-4.9); Potassium, Blood 3.4 mmol/L (3.5-5.5); Sodium, Blood 119 mmol/L (136-145); Total Protein, Blood 5.5 g/dL (6.4-8.2)
--- NOTE | 2019-12-26 06:21 | NUR ---
END OF SHIFT SUMMARY PT CONTINOUS TO MOAN AND NOT FOLLOW DIRECTIONS. NEW ORDERS OF SODIUM PHOS AND POTASSIUM PHOS STARTED. 3% NS STOPED. PT NSR T/O SHIFT. MAX TEMP 100.1. RA O2 SAT >97%. SBP 127-151. HR 71-102. SERRA PATENT AND DRAINING TO GRAVITY. WILL REPORT TO AM RN WHEN AVAILABLE.
--- NOTE | 2019-12-26 07:44 | NUR ---
Received report from Ratna WOODWARD. Patient awake in bed supine and HOB at 30n degrees. She continues to stair off to the left with occassional garbled speech and does not answer questions or follow commands. She has movement to right arm and minimal movement to left with some gross movement to LE's. Left p[upil sluggish and right pupil brisk and both are 4mm. She is on RA and sats 100%. She has RIJ central line dressinfg intact and site WNL's. She hassodium phos infuing at 127ml/hr, Potassium phos at 125ml/hr amnd NS TKO. She has bilateral 20ga IV in FA and dressings intact and sites WNL's, both flushed and SL's. She has 16 Fr Sharp draining to gravity yellow urine with sediment. VSS, See EMR.
--- NOTE | 2019-12-26 09:24 | NUR ---
Patient having some twitching with head to left and some left arm twitching and medicated with 1 mg Ativan. AM med administered per MAY. She remains on RA and sats 100%. Suki at bedside and notified Dr Urban and she is coming to talk with him. VSS, See EMR.
--- NOTE | 2019-12-26 11:23 | NUR ---
Pt. is in bed resting prayed for pt.
--- NOTE | 2019-12-26 11:27 | NUR ---
Patient has been resting quietly with intermitent awakenings. VSS, See EMR. No other significant changes with patient and neuro status. at bedside.
[2019-12-26 11:29] LABS: Phosphorus, Blood 3.4 mg/dL (2.5-4.9); Potassium, Blood 3.3 mmol/L (3.5-5.5)
--- NOTE | 2019-12-26 16:37 | NUR ---
Supportive visit with Pt's spouse Denny this afternoon. Offered therapeutic listening as Denny discusses events that has effected Pt's health over the last year. Listened as Denny discusses concerns regarding having to take some time off from work due to Pt being in the hospital. Suggested to start FMLA. Continued therapeutic listening and answered questions. No other concerns reported at this time. Spoke with Bedside RN Kev and discussed case. Kev prints FMLA forms and will give to spouse when he returns. Palliative Care will remain available for supportive and therapeutic visits.
--- NOTE | 2019-12-26 16:44 | NUR ---
Patient more verbal and looks more than just left. When calling her name she will look right and open eyes. No changes to extremities. VSS, See EMR. Remains on RA and sats 99%. remains at bedside. Palliative care by to talk with patient.
--- NOTE | 2019-12-26 18:08 | NUR ---
Patient is able to make 2-3 word sentences. No real changes in distal extremity movements. VSS, See EMR. Remains on RA and sats 99%. Notified Dr Urban of neuro changes. Patient does some slight tracking to voices in room,
[2019-12-26 18:17] LABS: Potassium, Blood 3.4 mmol/L (3.5-5.5)
--- NOTE | 2019-12-26 20:28 | NUR ---
ASSUMED CARE AT 1900 PT LAYING IN BED AND ABLE TO SLOWLY TURN HER HEAD TOWARDS SOUND AND WHEN BEING TALKED TO. HR 84. RR 16. BP 144/77. RA O2 SAT 99%. PT LT ARM MINIMAL MOVEMENT. SEE SHIFT ASSESSMENT FOR FULL ASSESSMENT.
[2019-12-27 04:14] LABS: Hematocrit 28.8 % (33.0-51.0); Hemoglobin 10.2 g/dL (11.5-16.0)
[2019-12-27 04:31] LABS: Albumin, Blood 2.3 g/dL (3.4-5.0); Anion Gap 7 mmol/L (6-16); Blood Urea Nitrogen 3 mg/dL (8-24); Bun/Creatinine Ratio 8.6 (12.0-20.0); CO2, Blood 26 mmol/L (21-32); Calcium, Blood 7.7 mg/dL (8.5-10.1); Chloride, Blood 89 mmol/L (98-108); Creatinine, Blood 0.35 mg/dL (0.40-1.00); Glomerular Filtration Rate >60 (60-); Glucose, Blood 96 mg/dL (70-99); Magnesium, Blood 1.9 mg/dL (1.6-2.4); Phosphorus, Blood 2.2 mg/dL (2.5-4.9); Potassium, Blood 3.5 mmol/L (3.5-5.5); Sodium, Blood 122 mmol/L (136-145)
--- NOTE | 2019-12-27 05:56 | NUR ---
END OF SHIFT SUMMARY PT WAS ABLE TO ANSWER MINIMAL QUESTIONS T/O NIGHT. FOR A FEW MOMENTS RN WAS ABLE TO UNDERSTAND PT SPEECH BUT MOST OF THE TIME JUST MOANED DURING NURSING CARE. HR 72-103. RR 14-24. SBP 124-161. SERRA PATENT AND DRAINING TO GRAVITY. WILL REPORT TO AM RN WHEN AVAILABLE.
--- NOTE | 2019-12-27 07:34 | NUR ---
ASSUMED CARE: PT WAS SLEEPING UPON ENTERING THE ROOM. ARIVED TO THE UNIT TO VISIT AND PT APPEARED TO WAKE UP AND TALK TO THE . PT STATES SHE IS IN [place] BUT WAS UNABLE TO STATE WHERE. WHEN ASKING IF SHE WAS AT THE HOSPITAL PT STATES "NO". RECEIVED REPORT FROM NOC RN. NA+3% ARRIVED FROM THE PHARMACY AND IS STARTED AT THIS TIME PER ORDERS AT 25/HR. WILL PLACE ORDER FOR NA+ BLOOD DRAW FOR 30 D/T 3% NA+ NOT BEING STARTED UNTIL NOW, PER DR TONY ORDER. WHILE STARTING THE 3% PT IS NOTED TO BE ON A LOOP OF SAYING "OK, TUESDAY" "YOU'LL TAKE CARE OF IT TUESDAY". ATTEMPTED TO TALK TO PT AND GAIN HER ATTENTION. PT WOULD LOOK AT THIS RN, BUT WOULD GO RIGHT BACK TO THE REPEATED LOOP TALKING TO HER . WILL CONTINUE TO MONITOR AND ASSESS FURTHER.
--- NOTE | 2019-12-27 09:57 | NUR ---
LAB RESULTS: CALLED DR TONY WITH NA+ LAB RESULTS OF 124. RECEIVED ORDERS TO REDRAW AT 1300 AND TO CALL WITH RESULTS BY 1400. WILL CONTINUE TO MONITOR.
--- NOTE | 2019-12-27 10:56 | NUR ---
REPORTS L SIDE OF BODY TWITCHING NOTED. WILL CONTINUE TO MONIOTR. PT HAS DIFFICULTY FOLLOWING DIRECTIONS.
--- NOTE | 2019-12-27 13:45 | NUR ---
NA+ @ 126 DR TONY NOTIFIED AND NEW ORDERS FOR MORE LABS PLACED.
--- NOTE | 2019-12-27 18:46 | NUR ---
UPDATE: NA+ CAME UP TO 129. DR TONY NOTIFIED AND ORDERS RECEIVED TO DC 3% NA+ DR SEARS CALLED AND NOTIFED OF THE 3% NA+ OFF AND RECEIVED ORDERS FOR MEDICAL FLOOR WITH TELEMETRY. PT STATES SHE IS BORED AND NEEDS TO LEAVE FOR A LITTLE WHILE, BUT SHE WILL BE BACK.
--- NOTE | 2019-12-27 20:50 | NUR ---
REPORT FOR TRANSFER REPORT GIVEN TO MED FLOOR RN. BELONGINGS SENT W/ PT. CALLED AND UPDATED. CHART AND BELONGINGS SENT W/ PT.
--- NOTE | 2019-12-27 21:38 | NUR ---
64 YR OLD FEMALE RECEIVED FROM THE ICU WITH DX OF HYPONATREMIA AND SEIZURES. ICU NURSE REPORTED THAT PT HAD ETOH ABUSE AND LAST DRINK WAS SOME 48 HRS AGO, LAST CIWA WAS 0, INSURANCE SALES AGENT ALSO STATED PT HAD CVA WITH LEFT SIDE WEAKNESS. PT SPEAKS SOMEWHAT GARBLED, AND SOMEWHAT CONFUSED AND WHEN ASKED RE SENSATION, VOICED SHE COULD FEEL ALL 4 EXT, BUT NOTABLE DIFFERENCE IN MOTOR RESPONSE FROM LEFT SIDE TO THAT OF RIGHT. HOB ELEVATED. PT REPORTEDLY FAILED SWALLOW STUDY AND WILL REMAIN NPO. IV FLUIDS INFUSING. MED TELE ORDERED. ORIENTED TO USE OF CALL LIGHT. CALL LIGHT IN REACH. RAILS UP X 3 AND BED ALARM ON.
--- NOTE | 2019-12-28 03:41 | NUR ---
SHIFT SUMMARY PT TRANSFERRED HERE FROM THE ICU, CVA WITH LEFT SIDE WEAKNESS. NPO SHE FAILED SWALLOW STUDY. IVF INFUSING - KEPPRA - PT HAS HX OF SEIZURES. INTERMITTENT CONFUSION NOTED. CURRENTLY RESTING QUIETLY. BED ALARM ON. CALL LIGHT IN REACH.
[2019-12-28 05:38] LABS: Hematocrit 33.3 % (33.0-51.0); Hemoglobin 11.4 g/dL (11.5-16.0)
[2019-12-28 06:03] LABS: Albumin, Blood 2.4 g/dL (3.4-5.0); Anion Gap 8 mmol/L (6-16); Blood Urea Nitrogen 2 mg/dL (8-24); CO2, Blood 24 mmol/L (21-32); Calcium, Blood 8.3 mg/dL (8.5-10.1); Chloride, Blood 97 mmol/L (98-108); Creatinine, Blood 0.33 mg/dL (0.40-1.00); Glomerular Filtration Rate >60 (60-); Glucose, Blood 86 mg/dL (70-99); Phosphorus, Blood 3.2 mg/dL (2.5-4.9); Potassium, Blood 3.3 mmol/L (3.5-5.5); Sodium, Blood 129 mmol/L (136-145)
--- NOTE | 2019-12-28 13:36 | NUR ---
Patient is lying in bed and sleeping. Patient's spouse, Denny, is in the doorway of patient's rm. We visit in the hallway and Denny tells me about the rough year they have had. Patient talks about patient's fall, her heart attack and her current medical issues. He discusses patient's personal issues and how much he cares about her and feels helpless to help her at times. I provide therapeutic listening, normalize Denny's feelings and concerns and provide companionship and a calming presence. I will continue to remain available to patient and family.
--- NOTE | 2019-12-28 15:26 | NUR ---
attemtpted visit pt resting. Review with nursing pt otleranceof careand plan. will follow up with advance directive and education on disease process.
--- NOTE | 2019-12-28 16:08 | NUR ---
DC FLUID RESTRICTION PATIENT HAS FLUID RESTRICTION OF 1000 ORDERED ON 12/25. DR. SEARS ORDERED CONTINUOUS INFUSION OF NS @ 100 MLS/HR TODAY. CLARIFIED ORDERS, RECEIVED TELEPHONE ORDER TO D/C FLUID RESTRICTION.
--- NOTE | 2019-12-28 16:26 | NUR ---
Shift Summary A/Ox2 to self and hospital/city. Worked with PT/OT/ST today, diet advanced to puree/nectar/feeder. CIWA x 2 has been "0" and d/c'd. Sharp patent and draining to gravity. Tele: SR 91. at bedside for most of the shift. Denies pain. No seizure activity noted. Continuous NS @ 100 mLs/hr. Speech has improved and patient does not slur, but conversates minimally. Turn q2 hours. Will continue to monitor. Appetite is poor. Meds to be crushed in applesauce.
[2019-12-29 05:49] LABS: BASOPHILS ABSOLUTE AUTO 0.07 K/mm3 (0.00-0.23); BASOPHILS PERCENT AUTO 1 % (0-2); EOSINOPHILS ABSOLUTE AUTO 0.22 K/mm3 (0.00-0.68); EOSINOPHILS PERCENT AUTO 3 % (0-6); Hematocrit 31.6 % (33.0-51.0); Hemoglobin 10.8 g/dL (11.5-16.0); IMMATURE GRAN PERCENT AUTO 1 % (0-1); LYMPHOCYTES ABSOLUTE AUTO 1.54 K/mm3 (0.84-5.20); LYMPHOCYTES PERCENT AUTO 20 % (21-46); MONOCYTES ABSOLUTE AUTO 0.91 K/mm3 (0.16-1.47); MONOCYTES PERCENT AUTO 12 % (4-13); Mean Corpuscular HGB 33.1 pg (26.0-34.0); Mean Corpuscular HGB Conc 34.2 g/dL (31.5-36.5); Mean Corpuscular Volume 97 fL (80-100); NEUTROPHILS ABSOLUTE AUTO 4.76 K/mm3 (1.96-9.15); NEUTROPHILS PERCENT AUTO 63 % (41-73); Platelet Count 238 K/mm3 (150-400); RDW Coefficient Variation 12.3 % (11.7-14.2); RDW Standard Deviation 43.8 fL (35.1-46.3); Red Blood Cell Count 3.26 M/mm3 (3.80-5.20)
--- NOTE | 2019-12-29 06:08 | NUR ---
SHIFT SUMMARY PATIENT PLEASENT AND COOPERATIVE THROUGHOUT THE NIGHT. PATIENT APPEARED TO SLEEP WELL THROUGHOUT THE NIGHT. PATIENT APPEARED TO MOVE SELF ABOUT SLIGHTLY IN BED AND WAS PROVIDED WITH ASSISTANCE NEEDED. MINIMAL MOVEMENT TO LEFT SIDE NOTED TONIGHT. IV FLUIDS RUNNING PER EMAR. PATIENT CURRENTLY APPEARS TO BE ASLEEP. WILL CONTINUE TO MONITOR PATIENT AND REPORT TO ONCOMING RN.
[2019-12-29 06:20] LABS: Alanine Aminotransfer (ALT/SGP 20 U/L (12-78); Albumin, Blood 2.3 g/dL (3.4-5.0); Albumin/Globulin Ratio 0.7 (0.8-1.8); Alk Phos 109 U/L (50-136); Anion Gap 8 mmol/L (6-16); Aspartate Aminotrans (AST/SGOT 29 U/L (12-37); Bilirubin, Total 0.7 mg/dL (0.1-1.0); Blood Urea Nitrogen 3 mg/dL (8-24); Bun/Creatinine Ratio 8.5 (12.0-20.0); CO2, Blood 22 mmol/L (21-32); Calcium, Blood 8.4 mg/dL (8.5-10.1); Chloride, Blood 102 mmol/L (98-108); Creatinine, Blood 0.35 mg/dL (0.40-1.00); Globulin, Blood 3.4 g/dL (2.2-4.0); Glomerular Filtration Rate >60 (60-); Glucose, Blood 93 mg/dL (70-99); Magnesium, Blood 1.7 mg/dL (1.6-2.4); Potassium, Blood 3.5 mmol/L (3.5-5.5); Sodium, Blood 132 mmol/L (136-145); Total Protein, Blood 5.7 g/dL (6.4-8.2)
--- NOTE | 2019-12-29 06:50 | NUR ---
UPDATE PATIENT'S SPEECH MUCH MORE GARBBLED THIS MORNING THAN IT WAS LAST NIGHT. DR BARRERA NOTIFIED THIS MORNING, NO NEW ORDERS RECEIVED AT THIS TIME.
--- NOTE | 2019-12-29 07:47 | NUR ---
DURING BEDSIDE REPORT, PATIENT NOTED TO BE TACHYPNEIC, GRUNTING. IV SITE IN R FOREARM INFILTRATED AND BRUISED; IVF STOPPED. LUNG SOUNDS ARE WET WITH COARSE EXPIRATORY CRACKLES. CURRENTLY ON RA; PLACED ON O2 AT 2 L/MIN NC. VS: 158/92, 116, 91% ON 2 L/MIN, RR 26, 97.3. REPORTED THESE FINDINGS TO DR. SEARS; RECEIVED TELEPHONE ORDER FOR LASIX 20 MG IV NOW. NEW IV'S PLACED IN RA, POWERGLIDE IN DENICE AND PIV IN R HAND.
--- NOTE | 2019-12-29 14:24 | NUR ---
Echocardiogram using 9.0ml of agitated saline contrast performed.
--- NOTE | 2019-12-29 16:06 | NUR ---
Supportive therapeutic visit today. Pt resting in bed with her eyes closed and appears comfortable with no S/S of distress at this time. Spouse Denny is at bedside. Offered therapeutic listening as Denny expresses concerns. Listened as Denny expresses concerns if Pt goes to SNF he may not be able to visit due to COVID 19 restrictions. Validated concerns and continued therapeutic listening. Provided gentle education on the importance of developing muliple plans pending Pt's clinical coarse and Pt's wishes. Discuss the importance of considering Pt's wishes if Pt continues to fail swallow evaluation and whether she would want a G-tube if appropriate. Continued therapeutic listening. Spouse tends to keep defering to if Pt goes to SNF and inability to visit with Pt. Difficult to assess spouse's level of understanding or whether he is just attempting to process information given. Spouse is also requesting assistance with completing FMLA paper work. No other concerns reported at this time. Palliative Care will discuss request with Caremanagement and continue therapeutic visits.
--- NOTE | 2019-12-29 19:20 | NUR ---
SHIFT SUMMARY: PATIENT HAS DECREASED WOB AND DYSPNEA THIS EVENING, IS NOW ON RA. L SIDE REMAINS FLACCID, L FACIAL DROOP, TENDS TO GAZE TO THE RIGHT. MINIMALLY COOPERATIVE WITH ORAL CARE. GAVE FLUTTER VALVE TO HELP MOBILIZE SECRETIONS BUT COUGH EFFORT IS WEAK. IS NOW STRICT NPO, FAILED SWALLOW EVAL BY ST. SERRA DRAINING YELLOW URINE. NO EVENTS ON TELEMETRY. HAD REPEAT CXR, HEAD CT, AND CARDIAC ECHO. NO SEIZURE ACTIVITY NOTED. SPOUSE YAAKOV AT BEDSIDE ALL DAY.
--- NOTE | 2019-12-29 21:43 | NUR ---
WITH SHIFT CHANGE 1952 PT LETHARGIC,NON VERBAL OLDING EYELIDS CLOSED.VSS. DAY RN NOTED THIS UNCHANGED FROM THEIR SHIFT.REPORTS PUPILS HAVE BEEN EQUAL AND REACTIVE TO LIGHT.2129 TUNNEL WORKER AND NURSE AT BEDSIDE FOR CARE AND FULL ASSESSMENT NOTING PT WITH LIGHT GENERALIZED TWITCHING.EYELIDS OPEN BUT NOT RESPONDING VERBALLY AND NOT TRACKING WITH EYES.R PUPIL SLIGHTLY SMALLER THAN L.R PUPIL MINIMALLY REACTIVE. THE ONLY MOVEMENT OF EXTREMITIES HAS BEEN PT USING R HAND TO SCRATCH HER NOSE.L SIDE FLACCID.R TOES APPEAR DRAWN UP SIMILAR TO POSTURING IN APPEARANCE.PT DOES NOT WITHDRAW R FOOT TO TOUCH.I CLEANSED R FOOT WITH ETOH PAD AND NEEDLE TOUCH WITH STILL NO REPONSE.I PLACED CALL OUT TO DR ABBASI PENDING RETURN CALL.
--- NOTE | 2019-12-29 22:02 | NUR ---
VS REPEATED AT 2155.BP 184/101,HEART RATE PER TELE 132. NO RETURN CCALL YET PER DOCTOR.DESIGN ENGINEER [employer]INE [employer]IPMENT GIVING ATIVAN IV PER AVAILABLE ORDERS WHILE I PLACED SECOND CALL TO DR ABBASI.I SPOKE WITH DR ABBASI AND ADVISED OF ASSESSMENT INCLUDING F/U VS. REVIEWED ADMIT HX, DIAGNOSIS,VS,IMAGING INCLUDING NOTES. ORDERS RECEIVED.
--- NOTE | 2019-12-29 23:23 | NUR ---
PT TWITCHING HAS DECREASED SINCE ATIVAN GIVEN.PT HAS RECIEVED CT SCAN PER NEW ORDERS AND HAS RETURNED TO ROOM.IMAGING CONTACTED [facility] PROJECT PORTFOLIO ANALYST TO OBTAIN DR HARVEY PHONE NUMBER FOR REPORTING OF RESULTS.
--- NOTE | 2019-12-29 23:26 | NUR ---
CALL RECEIVED PER [facility] "[facility]ILA" ASKING ME TO CONTACT DR ABBASI REGARDING CT SCAN RESULTS AND GIVE HER THEIR PHONE NUMBER TOP CALL DR HICKS. I CALLED DR ABBASI AND GAVE NAME AND PHONE NUMBER. CALLING THEM NOW.
--- NOTE | 2019-12-29 23:46 | NUR ---
DR ABBASI AT BEDSIDE. ATTEMPTED TO REACH DR HICKS, BUT # GOES TO RECORDED MESSAGE SAYING THEY ARE EXPERIENCING SYSTEM PROBLEMS.COPY OF REPORT RECEIVED WHICH WAS REVIEWED BY DR ABBASI AND I CALLED THE NUMBER AVAILABLE ON REPORT AND RECEIVED SAME RECORDED MESSAGE SAYING THEY ARE EXPERIENCING SYSTEM PROBLEMS. I CALLED AND SPOKE WITH KATE IN RADIOLOGY AND COMFIRMED THEY HAVE NO OTHER NUMBERS AVAILABLE FOR [facility].
--- NOTE | 2019-12-29 23:55 | NUR ---
I CONTINUED ATTEMPTS TO GET THROUGH. I WAS ABLE TO REACH [facility] AND WAS INFORMED THAT DR ABBASI WAS CURRENTLY SPEAKING WITH DR HICKS ON THE PHONE.
--- NOTE | 2019-12-30 00:25 | NUR ---
PER ACC WE ARE UNABLE TO DO STAT MRI. DR ABBASI SCHEDULED TO FINISH WORK AT 2400.PTS ARRIVED TO ROOM AFTER SPEAKING WITH DR ABBASI PER HER CALL TO .I HAVE NOT BEEN ABLE TO LOCATE DR ABBASI TO SPEAK WITH .I CALLED OUT TO DR FAJARDO AND AM WAITING RETURN CALL.
--- NOTE | 2019-12-30 00:28 | NUR ---
DR ABBASI ON UNIT, BUT SHE HAS COMPLETE WORKING HOURS AND IS STILL FINISHING AN ADMIT. SHE ASKS IF DR FAJARDO CAN SPEAK WITH .I CURRENTLY REACHED DR FAJARDO AND REVIEWED MY KNOWLEDGE OF CASE AND WHAT HAS OCCURRED TONIGHT.DR FAJARDO STATED HE WILL SPEK WITH SOON HE IS ABLE.I ADVISED DR ABBASI AND SHE VERBALIZED SHE WISHES TO KEEP TRANSFER PENDING UNTIL DR FAJARDO IS ABLE TO SPEAK WITH REGARDING HIS WISHES.
--- NOTE | 2019-12-30 00:48 | NUR ---
DR FAJARDO HERE AND ASSESSING PT AND SPEAKING WITH .REGARDING CURRENT STATUS AND RECENT CT SCAN RESULTS.AT THIS TIME,PTS R FOOT WITHDRAWS TO TOUCH SLIGHTLY AND SHE MOANED WHEN FOOT WAS TOUCHED.
--- NOTE | 2019-12-30 00:52 | NUR ---
DR FAJARDO DCYocasta TRANSFER ORDER.IS GOING TO CONTINUE TO FURTHER EVALUATE PTS PROGRESSION OVER NEXT 24 HRS AND ORDER MRI FOR AM.
[2019-12-30 05:18] LABS: BASOPHILS ABSOLUTE AUTO 0.04 K/mm3 (0.00-0.23); BASOPHILS PERCENT AUTO 1 % (0-2); EOSINOPHILS ABSOLUTE AUTO 0.21 K/mm3 (0.00-0.68); EOSINOPHILS PERCENT AUTO 3 % (0-6); Hematocrit 27.5 % (33.0-51.0); Hemoglobin 9.4 g/dL (11.5-16.0); IMMATURE GRAN ABSOLUTE AUTO 0.08 K/mm3 (0.00-0.10); IMMATURE GRAN PERCENT AUTO 1 % (0-1); LYMPHOCYTES ABSOLUTE AUTO 1.44 K/mm3 (0.84-5.20); LYMPHOCYTES PERCENT AUTO 17 % (21-46); MONOCYTES ABSOLUTE AUTO 0.78 K/mm3 (0.16-1.47); MONOCYTES PERCENT AUTO 9 % (4-13); Mean Corpuscular HGB 33.2 pg (26.0-34.0); Mean Corpuscular HGB Conc 34.2 g/dL (31.5-36.5); Mean Corpuscular Volume 97 fL (80-100); Mean Platelet Volume 8.4 fL (9.1-12.4); NEUTROPHILS PERCENT AUTO 70 % (41-73); Platelet Count 215 K/mm3 (150-400); RDW Coefficient Variation 12.9 % (11.7-14.2); RDW Standard Deviation 46.1 fL (35.1-46.3); Red Blood Cell Count 2.83 M/mm3 (3.80-5.20); White Blood Cell Count 8.55 K/mm3 (4.00-11.30)
[2019-12-30 05:45] LABS: Alanine Aminotransfer (ALT/SGP 18 U/L (12-78); Albumin, Blood 2.1 g/dL (3.4-5.0); Albumin/Globulin Ratio 0.6 (0.8-1.8); Alk Phos 95 U/L (50-136); Anion Gap 9 mmol/L (6-16); Aspartate Aminotrans (AST/SGOT 22 U/L (12-37); Bilirubin, Total 0.8 mg/dL (0.1-1.0); Blood Urea Nitrogen 5 mg/dL (8-24); CO2, Blood 22 mmol/L (21-32); Calcium, Blood 8.2 mg/dL (8.5-10.1); Chloride, Blood 103 mmol/L (98-108); Creatinine, Blood 0.31 mg/dL (0.40-1.00); Globulin, Blood 3.4 g/dL (2.2-4.0); Glomerular Filtration Rate >60 (60-); Glucose, Blood 93 mg/dL (70-99); Magnesium, Blood 1.8 mg/dL (1.6-2.4); Phosphorus, Blood 3.7 mg/dL (2.5-4.9); Potassium, Blood 3.2 mmol/L (3.5-5.5); Sodium, Blood 134 mmol/L (136-145); Total Protein, Blood 5.5 g/dL (6.4-8.2)
--- NOTE | 2019-12-30 08:01 | NUR ---
SUMMARY @0701 DURING SHIFT CHANGE, PT BEGAN HAVING MILD TWITCHING MOSTLY L ARM. DAY RN TO BE GIVING ATIVAN PER ORDERS.SEE NEURO CHECKS.
--- NOTE | 2019-12-30 14:58 | NUR ---
Supportive therapeutic visit. Pt resting in bed with her eyes open but does not verbaly respond. Denny at bedside. Offered therapeutic listening and answered questions. Provided gentle education on the potential of Pt not returning to baseline and the possibility of needing extra care in the home or placed into higher level of care pending clinical coarse. Difficult to assess how much spouse is able to process information being provided. Deon attention appears to be focused on Pt. Denny is in agreement for continued visits from Palliative Care. Spoke with Dr Recinos prior to Pt visit and discussed case. Spoke with Bedside CRISSY Fang and discussed case. Palliative Care will remain available for supportive therapeutic visits.
--- NOTE | 2019-12-30 19:26 | NUR ---
SHIFT SUMMARY: NEURO CHECKS PERFORMED Q4 HOURS PER UNIT PROTOCOL. THROUGHOUT THE DAY, AWAKE AND ALERT INTERMITTENTLY, SPOKE TO A COUPLE OF TIMES BUT NON VERBAL TO THIS AUTHOR. PUPILS UNEQUAL, UNCHANGED FROM THIS MORNING. SLIGHT LEFT FACIAL DROOP, L SIDE FLACCID BUT L FOOT WILL TWITCH AT TIMES. R ARM FLACCID AT TIMES, BUT SHE REACHES UP TO SCRATCH HER NOSE OTHER TIMES. INTERMITTENTLY TACHYCARDIC ON TELEMETRY BUT NO ECTOPY. SERRA DRAINING CLEAR YELLOW URINE WITH SEDIMENT. COUGH EFFORT HAS IMPROVED, BUT SHE CANNOT COMPLETELY EXPEL SPUTUM AND RESISTS ORAL SUCTIONING. REPEAT MRI DONE. STRICT NPO, WILL NEED TO HAVE NUTRITION ADDRESSED TOMORROW.
--- NOTE | 2019-12-31 04:08 | NUR ---
PHYSICIAN COMMUNICATION *LATE ENTRY* DR TONY IN TO SEE PT AROUND 2330 LAST NIGHT. ORDERED IONIZED CALCIUM & MAG LAB TO BE DRAWN. DR TONY ASKED IF PT WAS TAKING ANYTHING PO, INFORMED HIM PT WAS NPO. AROUND 0030 WHEN I CALLED HIM BACK ABOUT MAG & IONIZED CALCIUM LEVELS, DR TONY ORDERED CLINIMIX c 158MEQ/L NA @50/HR & FOR NORMAL SALINE TO BE DC'D. WCTM PT.
[2019-12-31 05:31] LABS: BASOPHILS ABSOLUTE AUTO 0.05 K/mm3 (0.00-0.23); BASOPHILS PERCENT AUTO 1 % (0-2); EOSINOPHILS ABSOLUTE AUTO 0.17 K/mm3 (0.00-0.68); EOSINOPHILS PERCENT AUTO 2 % (0-6); Hematocrit 28.7 % (33.0-51.0); Hemoglobin 9.5 g/dL (11.5-16.0); IMMATURE GRAN ABSOLUTE AUTO 0.08 K/mm3 (0.00-0.10); IMMATURE GRAN PERCENT AUTO 1 % (0-1); LYMPHOCYTES ABSOLUTE AUTO 1.41 K/mm3 (0.84-5.20); LYMPHOCYTES PERCENT AUTO 20 % (21-46); MONOCYTES ABSOLUTE AUTO 0.67 K/mm3 (0.16-1.47); MONOCYTES PERCENT AUTO 10 % (4-13); Mean Corpuscular HGB 32.9 pg (26.0-34.0); Mean Corpuscular HGB Conc 33.1 g/dL (31.5-36.5); Mean Corpuscular Volume 99 fL (80-100); Mean Platelet Volume 8.5 fL (9.1-12.4); NEUTROPHILS ABSOLUTE AUTO 4.67 K/mm3 (1.96-9.15); NEUTROPHILS PERCENT AUTO 66 % (41-73); Platelet Count 236 K/mm3 (150-400); RDW Standard Deviation 46.7 fL (35.1-46.3); Red Blood Cell Count 2.89 M/mm3 (3.80-5.20); White Blood Cell Count 7.05 K/mm3 (4.00-11.30)
[2019-12-31 05:50] LABS: Alanine Aminotransfer (ALT/SGP 21 U/L (12-78); Albumin, Blood 2.3 g/dL (3.4-5.0); Albumin/Globulin Ratio 0.7 (0.8-1.8); Alk Phos 96 U/L (50-136); Anion Gap 8 mmol/L (6-16); Aspartate Aminotrans (AST/SGOT 21 U/L (12-37); Bilirubin, Total 0.7 mg/dL (0.1-1.0); Blood Urea Nitrogen 7 mg/dL (8-24); Bun/Creatinine Ratio 19.8 (12.0-20.0); CO2, Blood 23 mmol/L (21-32); Calcium, Blood 8.3 mg/dL (8.5-10.1); Chloride, Blood 107 mmol/L (98-108); Creatinine, Blood 0.35 mg/dL (0.40-1.00); Globulin, Blood 3.5 g/dL (2.2-4.0); Glomerular Filtration Rate >60 (60-); Glucose, Blood 101 mg/dL (70-99); Magnesium, Blood 1.8 mg/dL (1.6-2.4); Potassium, Blood 3.7 mmol/L (3.5-5.5); Sodium, Blood 138 mmol/L (136-145); Total Protein, Blood 5.8 g/dL (6.4-8.2)
--- NOTE | 2019-12-31 06:35 | NUR ---
SHIFT SUMMARY OPENS EYES TO VERBAL STIMULI. NONVERBAL. CONSTANT TWITCHING, IS ABLE TO FOLLOW SIMPLE COMMANDS DURING TWITCHING. ABLE TO STICK OUT TONGUE, BLINK, WIGGLE R FOOT TOES, CREDIT REPRESENTATIVE c R HAND. L SIDE IS FLACCID. HAS L SIDE FACIAL DROOP. CLINIMIX STARTED LAST NIGHT PER DR TONY. PONCE IS PATENT & DRAINING. VSS. TELE NSR @89. HAS BEEN @BEDSIDE T/O NIGHT. TURNED & REPOSITIONED Q2H. CALL LIGHT IN REACH.
--- NOTE | 2019-12-31 10:05 | NUR ---
Attempted to visit with pt and her this morning. Melissa's is not present in her room at the time of my visit. Melissa is sleeping soundly at this time and appears to be comfortable. Left her undisturbed at this time. Spoke with janitor custodian Delio, as PC nurse over the weekend indicated that pt's could use some additional support as pt is very likely going to need care then she did prior to this admission. Delio stated he will plan to visit with pt's as they have a rapport. PC will continue to follow.
--- NOTE | 2019-12-31 15:05 | NUR ---
Pt. is in bed resting prayed for her and encouraged pt.
--- NOTE | 2019-12-31 15:38 | NUR ---
TOLD OF CURRENT VS--187/108-128-25 AND TEMP 100.5. OK TO ORDER TYL. 650 MG ND Q6 AND ADVISED WHEN GIVEN LOPRESSOR HEART RATE DID COME DOWN FROM 130'S TO 120.
[2019-12-31 15:59] LABS: Source, Urine Catheter
[2019-12-31 16:16] LABS: Bilirubin, Urine Neg (Neg); Blood, Urine 4+ (Neg); Glucose Qualitative, Urine Neg (Neg); Ketones, Urine 3+ (Neg); Leukocyte Esterase, Urine 3+ (Neg); Nitrite, Urine Pos (Neg); Protein, Urine 2+ (Neg); Urobilinogen, Urine NORM (Normal)
[2019-12-31 16:21] LABS: Appearance, Urine Cloudy (Clear); Color, Urine Yellow (P-Yellow)
[2019-12-31 16:23] LABS: White Blood Cells, Urine TNTC /hpf (0-5)
[2019-12-31 16:24] LABS: Bacteria Many /hpf; Renal Epithelial Rare /hpf (0-Rare); Squamous Epithelial Cells Rare /hpf (Few)
--- NOTE | 2019-12-31 16:34 | NUR ---
RESPONDS TO PAINFUL STIMULI. SOMETIMES RESPONDS TO COMMANDS. HAS WEAK RT HAND SQUEEZE, ABLE TO WIGGLE TOES RIGHT SIDE. TREMORS/JERKING MOTION LEFT ARM. ECCHYMOTIC BUE. LUNG SOUNDS DIM TO COARSE IN THE UPPER. TELE ON AND AT THIS TIME ST AT 110. HAS BEEN UP TO 130'S W/ AWARE. MEDS HAVE BEEN ORDERED. TURNED Q 2 HOURS. S.O. IN ROOM. TM
--- NOTE | 2019-12-31 18:39 | NUR ---
LEFT VOICE MAIL MESSAGE ON PHONE--USED LOPRESSOR IV AND V.S. WERE 187/108 -128 BEFORE MED AND AFTER 175/93-112. THEN USED VASOTEC AND NOW 185/99-118. ASKED ABOUT ADJUSTING MEDS OR NEW MEDS. AWAITING NEW ORDERS.
--- NOTE | 2019-12-31 23:58 | NUR ---
HTN PT HAS HTN SINCE EARLY AFTERNOON c BP RANGING 170-190'S SYSTOLIC. HR HAS BEEN 90-130'S. HAVE GIVEN 0.5ML VASOTEC 1X, 5MG LOPRESSOR 1X, 25MCG FENTANYL, APPLIED A 0.1MG CLONIDINE PATCH ON L SHOULDER & BP DOES NOT CHANGE. PT WAS GIVEN THESE MEDS ON DAY SHIFT WELL. SHE IS NON VERBAL. ABLE TO FOLLOW SIMPLE COMMANDS SUCH BLINKING, NODDING HEAD, STICKING OUT TONGUE, GRIPING c R HAND, WIGGLING R FOOT TOES. HAS CONSTANT MUSCLE TWITCHING. PT IS A FULL CODE. HAVE BEEN IN CONTACT c DR BARRERA T/O NIGHT & SHE ORDERED PT TO BE TRANSFERED TO PCU & BE PLACED ON A CARDIZEM DRIP. WILL PASS REPORT TO PCU NURSE.
--- NOTE | 2020-01-01 00:35 | NUR ---
TRANSFER PT TRANSFERED TO U 12. GAVE REPORT TO DAWN KNOWLES.
[2020-01-01 06:02] LABS: BASOPHILS ABSOLUTE AUTO 0.05 K/mm3 (0.00-0.23); BASOPHILS PERCENT AUTO 1 % (0-2); EOSINOPHILS ABSOLUTE AUTO 0.13 K/mm3 (0.00-0.68); EOSINOPHILS PERCENT AUTO 2 % (0-6); Hematocrit 28.8 % (33.0-51.0); Hemoglobin 9.4 g/dL (11.5-16.0); IMMATURE GRAN ABSOLUTE AUTO 0.06 K/mm3 (0.00-0.10); IMMATURE GRAN PERCENT AUTO 1 % (0-1); LYMPHOCYTES ABSOLUTE AUTO 0.72 K/mm3 (0.84-5.20); LYMPHOCYTES PERCENT AUTO 8 % (21-46); MONOCYTES ABSOLUTE AUTO 0.61 K/mm3 (0.16-1.47); MONOCYTES PERCENT AUTO 7 % (4-13); Mean Corpuscular HGB 33.1 pg (26.0-34.0); Mean Corpuscular HGB Conc 32.6 g/dL (31.5-36.5); Mean Corpuscular Volume 101 fL (80-100); Mean Platelet Volume 8.8 fL (9.1-12.4); NEUTROPHILS ABSOLUTE AUTO 7.16 K/mm3 (1.96-9.15); NEUTROPHILS PERCENT AUTO 82 % (41-73); Platelet Count 223 K/mm3 (150-400); RDW Coefficient Variation 13.2 % (11.7-14.2); RDW Standard Deviation 48.3 fL (35.1-46.3); Red Blood Cell Count 2.84 M/mm3 (3.80-5.20); White Blood Cell Count 8.73 K/mm3 (4.00-11.30)
[2020-01-01 06:25] LABS: Albumin, Blood 2.2 g/dL (3.4-5.0); Anion Gap 5 mmol/L (6-16); Blood Urea Nitrogen 10 mg/dL (8-24); Bun/Creatinine Ratio 23.8 (12.0-20.0); CO2, Blood 28 mmol/L (21-32); Calcium, Blood 8.8 mg/dL (8.5-10.1); Chloride, Blood 113 mmol/L (98-108); Creatinine, Blood 0.42 mg/dL (0.40-1.00); Glomerular Filtration Rate >60 (60-); Glucose, Blood 135 mg/dL (70-99); Phosphorus, Blood 4.2 mg/dL (2.5-4.9); Potassium, Blood 3.2 mmol/L (3.5-5.5); Sodium, Blood 146 mmol/L (136-145)
[2020-01-01 06:26] LABS: Percent Saturation 19.4 % (15.0-50.0)
--- NOTE | 2020-01-01 08:29 | NUR ---
SHIFT SUMMARY PT TRANSFERRED FROM MED FLOOR TO PCU AT 0035 TODAY; SCHEDULED MEDITECH DOWN TIME FROM 0045 TO APPROX 0600. PT ALERT, NON VERBAL, AND ABLE TO WIGGLE RIGHT FINGERS/TOES. FLACCID LEFT SIDE DEFICIT NOTICED, WITH SEVERE WEAKNESS TO RIGHT SIDE. PT HAS CONSISTANT LEFT SIDED TWITCH, DR CLAYTON NOTIFIED- NO NEW ORDERS. HR SINUS TACH IN 90'S. DR. CLAYTON VERBALIZED D/C OF CARDIZEM DRIP PRIOR TO ADMINISTRATION VIA PHONE ORDER AT APPROX 0200. ARRIVED ON 3L NC WITH 100% SPO2, NOW ON 1L AT 99%. CONT TO HAVE SHALLOW BREATHING. ORAL CARE PROVIDED, HOB ELEVATED. PITTING EDEMA T/O NOTED, BLE ELEVATED ON PILLOWS. 1CM ABRASION TO COCCYX NOTED, MEPILEX PLACE AND Q2 REPOSITIONING IMPLEMENTED. IS NPO, CLINIMIX INFUSING 50ML/HR INTO RUE POWERGLIDE. RIGHT FOREARM IV PLACE BY BBASS. CT SCAN COMPLETED AT APPROX 0630. SPOUSE ATTENTIVE AT BEDSIDE. BEDSIDE REPORT GIVEN TO DAY RN.
--- NOTE | 2020-01-01 15:36 | NUR ---
Pt. is in bed and is not doing well ,spouse is in the room ,offered prayers for pt.
--- NOTE | 2020-01-01 17:43 | NUR ---
SHIFT SUMMARY EEG COMPLETED THIS AM; EMILIANO CONSULT CALLED INTO OFFICE. PT ALERT THIS AM. NON -VERBAL, BLINKING AND STICKING OUT TONGUE; FOLLOWING DIRECTIONS WITH RIGHT SITE; NO MOVEMENT TO LEFT SIDE. PT LOOKS AT HOWEVER IS SPEAKING; UNALBE TO TRACK OBJECT INFRONT. LEFT SIDE TWITCHING NOTED. AFTER BEDBATH PT APPEARS TO BE SLEEPING; TWITCHING TO LEFT SIDE NOTE PRESENT WHILE PT SLEEPING. WHEN PT WOKE UP PT VERBAL 2-3 WORDS; STATES SHE HAS [place] ROS[place]; AND BLURRY VISION. MEDICATED PT FOR PAIN, x1 TYLENOL WITH NO RELEIFE. NO S/SX OF OTHER DISTRESS NOTED. ELEVATED BP NOTED; MEDICATED PER EMAR. OTHER VSS. NO OTHER ACUTE CHANGES NOTED DURING SHIFT. WILL CONTINUE TO MONITOR UNTIL REPORT GIVEN TO ONCOMING RN.
--- NOTE | 2020-01-01 21:30 | NUR ---
NEUROLOGY IN THE ROOM TO ASSESS PT, HER IS IN THE ROOM AT HIS TIME. PT DID WAKE UP AND PARTICIPATE. SHE WAS ABLE TO SPEAK A FEW WORDS, STICK OUT HER TONGUE, AND GRASP W/RIGHT HAND. SHE IS ALSO ABLE TO POINT TO HER HEAD FOR PAIN AND HER LEFT EAR UPON REQUEST USING HER RIGHT ARM. PT'S LEFT SIDE REMAINS FLACCID. HAS ORDERED AN ADDITIONAL 250 MG IV KEPPRA TO BE GIVEN WITH 2100 DOSE TO TOTAL 1,000 MG. NEW DOSE OF 1,000 MG IV KEPPRA Q12 & A COROTID DUPLEX HAS BEEN ORDERED.
--- NOTE | 2020-01-02 01:52 | NUR ---
PERSONAL CARE IS AWAKE WATCHING TV AT THIS TIME. SHE ATTEMPTED TO TO ASSIST WITH ORAL CARE BUT WAS UNABLE TO COORDINATE AND HOLD BRUSH TO HER MOUTH LONG ENOUGH. SHE ALSO ATTEMPTED TO ASSIST WASHING HER FACE. SHE IS ANSWERING YES OR NO QUESTIONS & APPEARS TO ANSWER APPROPRIATLEY AT THIS TIME.
[2020-01-02 05:05] LABS: BASOPHILS ABSOLUTE AUTO 0.05 K/mm3 (0.00-0.23); BASOPHILS PERCENT AUTO 1 % (0-2); EOSINOPHILS ABSOLUTE AUTO 0.18 K/mm3 (0.00-0.68); EOSINOPHILS PERCENT AUTO 4 % (0-6); Hematocrit 24.6 % (33.0-51.0); Hemoglobin 8.1 g/dL (11.5-16.0); IMMATURE GRAN ABSOLUTE AUTO 0.02 K/mm3 (0.00-0.10); IMMATURE GRAN PERCENT AUTO 1 % (0-1); LYMPHOCYTES ABSOLUTE AUTO 1.53 K/mm3 (0.84-5.20); LYMPHOCYTES PERCENT AUTO 36 % (21-46); MONOCYTES ABSOLUTE AUTO 0.42 K/mm3 (0.16-1.47); MONOCYTES PERCENT AUTO 10 % (4-13); Mean Corpuscular HGB 33.2 pg (26.0-34.0); Mean Corpuscular HGB Conc 32.9 g/dL (31.5-36.5); Mean Corpuscular Volume 101 fL (80-100); NEUTROPHILS PERCENT AUTO 49 % (41-73); Platelet Count 212 K/mm3 (150-400); RDW Coefficient Variation 13.2 % (11.7-14.2); RDW Standard Deviation 49.2 fL (35.1-46.3); Red Blood Cell Count 2.44 M/mm3 (3.80-5.20)
--- NOTE | 2020-01-02 06:37 | NUR ---
SUMMARY PT CONTINUES TO RESPOND TO VERBAL STIMULI. SHE WAS AWAKE WATCHING TV THIS AM AND ATTEMPTED TO MAKE COMMENTS ABOUT THE CONTENT OF THE SHOW AND SHOOK HER HEAD IN DIAGREEANCE, SPEECH IS MOSTLY GARBLED BUT SOME WORDS ARE CLEAR. PT ATTEMPTED TO ASSIST WITH ORAL CARE THROUGH THE NIGHT. LEFT ARM CONTINUES TO TWITCH, NO VOLUNTARY MOVEMENT NOTED, PT IS UNABLE TO MOVE LEFT EXTREMITIES. CLINIMIX INFUSING PER EMAR @ 50 ML/HR, VSS, ON RA, REMAINS AT THE BEDSIDE. CALL LIGHT IS IN REACH OF RIGHT HAND. WCTM & REPORT TO DAY RN.
[2020-01-02 08:58] LABS: Albumin, Blood 2.1 g/dL (3.4-5.0); Anion Gap 7 mmol/L (6-16); Blood Urea Nitrogen 12 mg/dL (8-24); Bun/Creatinine Ratio 33.4 (12.0-20.0); CO2, Blood 26 mmol/L (21-32); Calcium, Blood 8.5 mg/dL (8.5-10.1); Chloride, Blood 114 mmol/L (98-108); Creatinine, Blood 0.36 mg/dL (0.40-1.00); Glomerular Filtration Rate >60 (60-); Glucose, Blood 112 mg/dL (70-99); Phosphorus, Blood 4.6 mg/dL (2.5-4.9); Potassium, Blood 3.2 mmol/L (3.5-5.5); Sodium, Blood 147 mmol/L (136-145)
--- NOTE | 2020-01-02 11:09 | NUR ---
Pt. is in bed and and encouraged pt. is doing much better offered prayers
--- NOTE | 2020-01-02 15:32 | NUR ---
Spiritual care visit conducted. Patient is sitting up in bed and alert. Patient's spouse, Denny, is present. Denny explains about the events of the last couple of days and that it has been full of ups and downs and very exhausting. Patient is quiet when I first enter the but as I talked with Denny she began participating more and more in the conversation. Once we got to the subject of patient's Confucianism Pamela verses Denny's Tenriism Pamela she even had a few short but funny one liners. I normalize their experience, and provide emotional support, therapeutic listening and prayer. I will continue to attempt to encorauge and help navigate through these difficult times.
--- NOTE | 2020-01-02 18:51 | NUR ---
SHIFT SUMMARY PT ALERT; ORIENTED TO SELF; FAMILY; YEAR AND DAY OF WEEK; AND EVENT. PT ATTEMPTS TO MAKE NEEDS KNOWN; USING 2-4 WORDS AT A TIMES. PUPILS CONTINUE TO BE UNEQUAL; LEFT SLUGGISH TO LIGHT AND PT WILL LOOK AT PERSON; HOWEVER WILL NOT TRACK WITH EYES. LEFT SIDE TWITCHING T/O SHIFT; NO MOVEMENT NOTED BY THIS RN. PT USING RIGHT HAND TO WIPE FACE AND STCRATCH NOSE; ATTEMPS TO FEED SELF WITH THIS RN PRESENT. PT ADANCED TO PUREE WITH HONEY THICH LIQUID, PT COUGH WEAK AT TIMES; APPEARS TO ONLY TOLERATE A COUPLE BITES; ENCOURAGED COUGHL ORAL CARE COMPELTED x3 THIS SHIFT. PT RESTING IN BED, TURNED Q2" PT ATTEMPTS TO ASSIST WITH REPOSITIONING. PT REPORTS HEADACHE; MEDICATED PER EMAR. PT REPORTS NAUSEA AFTER EATING DINNER AND PO POTASSIUM THIS EVENING; MED x1 WITH ZOFRAN, PT DENIES SOB AND DIZZINESS. ELEVATED BP FOR 1200 DOSE OF IV LOPRESSOR PT HR DIPPING TO 50'S NOTIFIED DR YANCEY; NEW ORDERS ENTERED FOR PO COREG. OTHER VSS. NO OTHER ACUTE CHANGES NOTED DURING SHIFT. REPORT GIVEN TO ONCOMING RN.
[2020-01-03 05:38] LABS: Hematocrit 28.6 % (33.0-51.0); Hemoglobin 9.4 g/dL (11.5-16.0)
[2020-01-03 05:55] LABS: Albumin, Blood 2.2 g/dL (3.4-5.0); Anion Gap 6 mmol/L (6-16); Blood Urea Nitrogen 13 mg/dL (8-24); Bun/Creatinine Ratio 37.6 (12.0-20.0); CO2, Blood 26 mmol/L (21-32); Calcium, Blood 8.7 mg/dL (8.5-10.1); Chloride, Blood 111 mmol/L (98-108); Creatinine, Blood 0.35 mg/dL (0.40-1.00); Glomerular Filtration Rate >60 (60-); Glucose, Blood 134 mg/dL (70-99); Magnesium, Blood 2.1 mg/dL (1.6-2.4); Phosphorus, Blood 4.9 mg/dL (2.5-4.9); Potassium, Blood 3.6 mmol/L (3.5-5.5); Sodium, Blood 143 mmol/L (136-145)
--- NOTE | 2020-01-03 07:28 | NUR ---
SUMMARY NO ACUTE CHANGES NOTED THROUGH THE NIGHT. PT IS ALERT & RESPONSIVE. SHE IS ABLE TO RESPOND WITH A FEW WORDS ON OCCASION OR SHE WILL NOD HER HEAD. PT IS TOLERATING SMALL SPOONFULLS OF HONEY THICK FLUIDS WNL. VSS, ON ROOM AIR, CLINIMIX & D5W INFUSING PER EMAR. LEFT ARM REMAINS FLACCID, RIGHT SIDE WEAK BUT SHE WILL GRASP AND ATTEMPT TO USE IT. IS AT THE BEDSIDE. CALL LIGHT IN REACH, REPORT GIVEN TO DAY RN.
--- NOTE | 2020-01-03 07:29 | NUR ---
ASSUMED PATIENT CARE. PATIENT RESTING COMFORTABLY IN BED, ABLE TO PROVIDE ONE WORD ANSWERS TO NURSING STAFF. NO SIGNS OF ACUTE DISTRESS, WCTM.
--- NOTE | 2020-01-03 17:32 | NUR ---
Joint visit with ST Qi Ruvalcaba, and this RN. Dr Amador discusses results of swallow study and treatment options. Remained behind to offer support and to answer questions. Offered therapeutic listening as spouse Denny discussed with Pt. During visit Pt does not indicate her thoughts regarding options. Denny will have further discussions with Pt this evening and let staff know of decision in the AM. Spoke with Bedside CRISSY Rincon and discussed case. Palliative Care will remain available for supportive and therapeutic visits.
--- NOTE | 2020-01-03 19:44 | NUR ---
REPORT GIVEN TO RADHA WOODWARD ON MEDICAL.
[2020-01-04 04:50] LABS: Hematocrit 28.6 % (33.0-51.0); Hemoglobin 9.4 g/dL (11.5-16.0)
[2020-01-04 05:17] LABS: Albumin, Blood 2.3 g/dL (3.4-5.0); Anion Gap 7 mmol/L (6-16); Blood Urea Nitrogen 10 mg/dL (8-24); Bun/Creatinine Ratio 33.9 (12.0-20.0); CO2, Blood 27 mmol/L (21-32); Calcium, Blood 8.5 mg/dL (8.5-10.1); Chloride, Blood 104 mmol/L (98-108); Glomerular Filtration Rate >60 (60-); Glucose, Blood 118 mg/dL (70-99); Phosphorus, Blood 4.6 mg/dL (2.5-4.9); Potassium, Blood 3.6 mmol/L (3.5-5.5); Sodium, Blood 138 mmol/L (136-145)
--- NOTE | 2020-01-04 07:40 | NUR ---
LADLE PULLER SUMMARY PT PCU TRANSFER TOWARDS BEGINNING OF SHIFT. PT SLEPT MOST OF THE NIGHT. L SIDE IS FLACID WITH RIGHT SIDE WEAKNESS. PT IS ABLE TO WIGGLE FINGERS AND TOES ON LEFT SIDE. LEFT PUPIL IS FIXATED, RIGHT PUPIL SLUGGISH. MINIMALLY VERBAL, SOMETIMES ANSWERS WITH "YES" OR "NO". RESPOSITIONED THROUGHOUT THE NIGHT. ESRRA PATENT AND DRAINING. AT BEDSIDE. ASPIRATION PRECAUTIONS. PRN SUCTIONING. PT PROVIDED WITH COOL WASHCLOTH FOR HEADACHE AT BEGINNING OF SHIFT. VSS.
--- NOTE | 2020-01-04 14:00 | NUR ---
SPOKE TO DR YANCEY ABOUT THE PT TWITCH TO SEE IF ATIVAN WOULD BE WARRANTED FOR IT. DR CANALES HAS CHANGED HER IV KEPPRA DOSE STARTING THIS MORNING, ATIVAN WILL HAVE MORE NEGATIVE COGNITIVE EFFECTS AND LIKELY WILL NOT HELP WITH THE ISSUE. PT DID RUN A LOW FEVER MEDICATED WITH TYLENOL CT. PT RESPONDED WELL TO THAT TEMP CAME DOWN TO [address] VASQUEZ WAS CONSULTED TODAY FOR FEEDING TUBE PLACEMENT.
--- NOTE | 2020-01-04 14:45 | NUR ---
Spiritual care visit conducted. Patient is lying on her side and alert. Patient continues to twitch. Patient's spouse, Denny, is bedside. Patient is more talkative and continues to show her strength and sense of humor as she tells about wanting to hit the OT and PT workers (she later admitted that she knows they are only trying to help). Patient tells me about her head pain and sleeplessness. She also talks about having fight and strength still. Denny explains about the reasons behind their chioce to do a stomach placed feeding tube. I listen empathically, reinfoce their kay and hope, and provide companionship and prayer. I will continue to attempt to encourage and uplift them in this difficult time.
--- NOTE | 2020-01-04 20:25 | NUR ---
SHIFT SUMMARY- PT STILL TWITCHING AT THE TIME OF BEDSIDE REPORT WITH NIGHT RN KRISTEL. SPOUSE AT THE BEDSIDE, PT DOES NOT APPEAR FEBRILE AND DOES NOT SEEM TO BE IN DISTRESS. AFTER REPORT WAS COMPLETED THE SPOUSE CAME OUT AND STATED THE PT WAS RESTING COMFORTABLY AND THE TWITCH HAS SEEMED TO NEARLY STOP.
[2020-01-05 05:25] LABS: Hematocrit 29.1 % (33.0-51.0); Hemoglobin 9.8 g/dL (11.5-16.0)
[2020-01-05 05:57] LABS: Albumin, Blood 2.3 g/dL (3.4-5.0); Anion Gap 7 mmol/L (6-16); Blood Urea Nitrogen 9 mg/dL (8-24); Bun/Creatinine Ratio 31.2 (12.0-20.0); CO2, Blood 25 mmol/L (21-32); Calcium, Blood 8.5 mg/dL (8.5-10.1); Chloride, Blood 105 mmol/L (98-108); Creatinine, Blood 0.29 mg/dL (0.40-1.00); Glomerular Filtration Rate >60 (60-); Glucose, Blood 109 mg/dL (70-99); Magnesium, Blood 1.9 mg/dL (1.6-2.4); Phosphorus, Blood 4.2 mg/dL (2.5-4.9); Potassium, Blood 3.5 mmol/L (3.5-5.5); Sodium, Blood 137 mmol/L (136-145)
--- NOTE | 2020-01-05 07:47 | NUR ---
CPA TAX SUMMARY Patient slept fitfully all night. Left sided twitching of left arm and leg continued, and at around 0300, her left cheek began intermittantly twitching. No complaints of pain. but patient admitted discomfort so Tylenol suppository was given which did seem to help her to relax. Danny lee completed this am for procedure. Spouse Denny very supportive.
--- NOTE | 2020-01-05 09:44 | NUR ---
01/05/20 0943 [place] Hannah MAC CASE WITH DR CEVALLOS. SEE ANETHESIA RECORD FOR CARE.
--- NOTE | 2020-01-05 18:29 | NUR ---
SHIFT SUMMARY PT IS AO AND MAKES SOME JOKES TODAY. PT SPEECH IS GARBLED. PT EXHIBITS LEFT SIDED MYOCLONIC JERKING THROUGHOUT SHIFT. PEG TUBE PLACED AT 0900 TODAY. MAY USE AFTER 24 HOURS. PT MEDICATED FOR PAIN X1 THIS SHIFT WITH FENTANYL IV. PT TOLERATED WELL. PT DEPENDS CHANGED AND PT REPOSITIONED FREQUENTLY THROUGHOUT SHIFT. ORAL CARE PROVIDED Q4H DUE TO INCREASED SECRETIONS AND INABILITY TO SWALLOW. PT HAS HAD LIQUID STOOL X3 THIS SHIFT. PT IN BED, CALL LIGHT IN REACH. IN ROOM THROUGHOUT SHIFT.
--- NOTE | 2020-01-06 04:56 | NUR ---
SHIFT SUMMARY PT ALERT THIS EVENING. 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 SPEECH, HOWEVER, IS IMPROVING. PT ABLE TO FORM SMALL SENTENCES THIS EVENING IN CONVERSATION. PT REPORTING ABD DISCOMFORT THIS EVENING. MEDICATED W/ ZOFRAN WITH GOOD EFFECT. PT HAVING LIQUID DARK BROWN STOOLS. EACH TIME PT WAS TURNED IN THE BED STOOL WAS PRESENT. LEFT SIDE FLACCID. LEFT FACIAL DROOP. PT CONTINUES TO HAVE INTERMITTENT MYOCLONIC JERKING. PEG TUBE SITE WITH A SMALL AMOUNT OF DRIED BLOOD BLOOD AROUND IT. OTHERWISE SITE LOOKS CLEAN AND FREE OF INFECTION. PT NPO. ORAL CARE DONE TOLERATED. SERRA PATENT AND DRAINING. PRESENT AT BEDSIDE THROUGHOUT THE NIGHT. VITAL SIGNS STABLE. WILL CONTINUE TO MONITOR AND REPORT TO DAY RN.
[2020-01-06 05:57] LABS: Hematocrit 23.8 % (33.0-51.0); Hemoglobin 7.8 g/dL (11.5-16.0)
[2020-01-06 06:15] LABS: Albumin, Blood 2.1 g/dL (3.4-5.0); Anion Gap 7 mmol/L (6-16); Blood Urea Nitrogen 24 mg/dL (8-24); Bun/Creatinine Ratio 74.8 (12.0-20.0); CO2, Blood 25 mmol/L (21-32); Calcium, Blood 8.2 mg/dL (8.5-10.1); Chloride, Blood 109 mmol/L (98-108); Creatinine, Blood 0.32 mg/dL (0.40-1.00); Glomerular Filtration Rate >60 (60-); Glucose, Blood 118 mg/dL (70-99); Phosphorus, Blood 3.8 mg/dL (2.5-4.9); Potassium, Blood 3.9 mmol/L (3.5-5.5); Sodium, Blood 141 mmol/L (136-145)
--- NOTE | 2020-01-06 09:55 | NUR ---
PHYSICIAN NOTIFIED THIS RN CONSULTED PHYSICIAN ABOUT PT'S HGB DROP BY 2 POINTS TO 7.8. THIS RN ALSO NOTIFIED PHYSICIAN ABOUT PT'S LIQUID, DARK BROWN STOOLS. THIS RN WILL CONTINUE TO MONITOR PT.
[2020-01-06 14:23] LABS: Hematocrit 21.8 % (33.0-51.0); Hemoglobin 7.2 g/dL (11.5-16.0)
--- NOTE | 2020-01-06 19:19 | NUR ---
SHIFT SUMMARY PT IS AO AND IS ABLE TO VERBALIZE SHORT SENTENCES. PT SPEECH IS GARBLED, BUT MORE PRONOUNCED THAN YESTERDAY. PT HAD MOTHER, SISTER, AND VISITING AT DIFFERENT INTERVALS TODAY, OKAY'D BY MANAGEMENT. PT C/O NAUSEA X1 THIS SHIFT AND ABD PAIN TOWARDS THE MANUEL. PT HAS HAD LIQUID STOOL, DARK BROWN/BLACK WITH MAROON UNDERTONES. THIS RN CALLED DR. VASQUEZ AT 1821 TO NOTIFY OF CLAUS BLOOD IN THE PEG TUBE WHEN STOPPED FOR PT REPOSITIONING. ONE UNIT PRBC INFUSED THIS SHIFT AND HGB WILL BE RECHECKED AT 2099. DR. VASQUEZ DISCUSSED STOPPING THE TUBE FEEDINGS WHILE WE REASESS PT HGB. VSS THROUGHOUT BLOOD TRANSFUSION. DR. YANCEY NOTIFIED OF HGB DROP THIS AM AT 1000, PRIOR TO MY DISCUSSION WITH DR. VASQUEZ. SEE NOTE. PT IS IN BED, CALL LIGHT IN REACH, BED IN LOW POSITION WITH SIDE RAILS UP.
[2020-01-06 21:19] LABS: Hematocrit 24.8 % (33.0-51.0); Hemoglobin 8.3 g/dL (11.5-16.0)
[2020-01-07 05:10] LABS: Hematocrit 21.1 % (33.0-51.0); Hemoglobin 6.9 g/dL (11.5-16.0); Mean Corpuscular HGB 32.7 pg (26.0-34.0); Mean Corpuscular HGB Conc 32.7 g/dL (31.5-36.5); Mean Corpuscular Volume 100 fL (80-100); Mean Platelet Volume 9.8 fL (9.1-12.4); Platelet Count 308 K/mm3 (150-400); RDW Coefficient Variation 16.4 % (11.7-14.2); RDW Standard Deviation 58.5 fL (35.1-46.3); Red Blood Cell Count 2.11 M/mm3 (3.80-5.20); White Blood Cell Count 9.33 K/mm3 (4.00-11.30)
[2020-01-07 05:39] LABS: Anion Gap 6 mmol/L (6-16); Blood Urea Nitrogen 29 mg/dL (8-24); Bun/Creatinine Ratio 86.3 (12.0-20.0); CO2, Blood 25 mmol/L (21-32); Calcium, Blood 8.3 mg/dL (8.5-10.1); Chloride, Blood 114 mmol/L (98-108); Creatinine, Blood 0.34 mg/dL (0.40-1.00); Glomerular Filtration Rate >60 (60-); Glucose, Blood 121 mg/dL (70-99); Magnesium, Blood 2.1 mg/dL (1.6-2.4); Phosphorus, Blood 4.6 mg/dL (2.5-4.9); Potassium, Blood 3.7 mmol/L (3.5-5.5); Sodium, Blood 145 mmol/L (136-145)
--- NOTE | 2020-01-07 12:42 | NUR ---
TRANSFER FROM MED FLOOR TO ICU 9 AT 1100 CARE ASSUMED, ASSESSMENT COMPLETED. PT AWAKE, ALERT, AWARE OF SITUATION BUT DIFFICULT TO UNDERSTAND D/T MUMBLED SPEECH SECONDARY TO STROKE. BLOOD INFUSING PER ORDERS, SECOND IV INSERTED, KEPPRA INFUSION COMPLETED AND CLINIMIX NOW INFUSING. VSS, PT AFEBRILE. HR 110-120, OTHER VSS, PT DENIES PAIN. PEG TUBE INERTION SITE WNL, NO BLOOD NOTED AROUND SITE OR IN TUBING. MODERATE ABD DISTENSION NOTED, BT PRESENT, PT DENIES NAUSEA. AT BEDSIDE, PLANNING FOR EGD IN ROOM AT 1300. BLOOD TRANSFUSION COMPLETED AT 1245 WITHOUT S/SX REACTION.
--- NOTE | 2020-01-07 12:46 | NUR ---
01/07/20 1246 Tashia Marquez History, Chart, Medications and Allergies reviewed before start of procedure. Patient confirms NPO status and agrees with scheduled surgery.
--- NOTE | 2020-01-07 13:23 | NUR ---
Met pt. in bed her nurse in the room attending to her needs, I talked to the spouse who told me that pt. is not doing well for she will be transfered to I Bridget Lemus prayed for Pt.
[2020-01-07 13:54] LABS: Hematocrit 28.6 % (33.0-51.0); Hemoglobin 9.8 g/dL (11.5-16.0)
--- NOTE | 2020-01-07 19:30 | NUR ---
ASSUMED CARE OF PT, BEDSIDE REPORT RECEIVED, PT IS RESTING QUIETLY RECLINING IN BED WITH SPOUSE AT BEDSIDE TO ASSIST WITH COMMUNICATION PT IS DIFFICULT TO UNDERSTAND DUE TO SLURRING OF SPEECH. PT IS AWAKE AND LOOKING AROUND ROOM, DENIES PAIN AT THIS TIME, DENIES NAUSEA. HRR, SINUS TACH ON MONITOR RATE 110-120S, SKIN IS PALE WARM AND DRY, BRISK CAP REFILL, NO EDEMA IS NOTED. LUNGS ARE CLEAR THROUGHOUT, SATS MAINTAINING ON ROOM AIR, NO VISIBLE INCREASED WORK OF BREATHING AT THIS TIME. ABD MODERATELY DISTENDED, TENDER TO PALP, SOFT, PEG SITE REVIEWED WITH OFFGOING RN, DRAIN SPONGE IS CDI AT THIS TIME, SITE IS STABLE OF THIS TIME. SERRA CATH NOTED DRAINING YELLOW URINE TO GRAVITY. EXTENDED DWELL AND LEFT WRIST IV ACCESS IS NOTED. ATTENDS IS CDI AT THIS TIME, WILL MONITOR.
--- NOTE | 2020-01-07 19:38 | NUR ---
END OF SHIFT PT HAD EGD, SOURCE OF BLEEDING FOUND, CAUTERIZED, AND EPI INJECTED PER REPORT, BELIEVES BLEEDING HAS STOPPED. HGB RECHECK THIS EVENING STABLE, NO S/SX ACTIVE BLEEDING FROM PEG INSERTION SITE. DR. VASQUEZ AT BEDSIDE THIS EVENING, PEG TUBE LAVAGED, RETURN WAS CLEAR AND YELLOW TINGED, NO S/SX BLOOD NOTED. PT HAS HAD TWO LOOSE BLACK STOOLS, DR. VASQUEZ AWARE. VSS, HR REMAINS SINUS TACH 100-120, BP STABLE. NO CHANGES TO NEURO STATUS, CLINIMIX INFUSING PER ORDERS, AT BEDSIDE TO ASSIST WITH CARE. REPORT TO ONCOMING SHIFT.
[2020-01-08 03:27] LABS: Hematocrit 24.5 % (33.0-51.0); Hemoglobin 8.2 g/dL (11.5-16.0)
[2020-01-08 03:47] LABS: Albumin, Blood 2.3 g/dL (3.4-5.0); Anion Gap 8 mmol/L (6-16); Blood Urea Nitrogen 30 mg/dL (8-24); CO2, Blood 26 mmol/L (21-32); Calcium, Blood 8.4 mg/dL (8.5-10.1); Chloride, Blood 115 mmol/L (98-108); Creatinine, Blood 0.35 mg/dL (0.40-1.00); Glomerular Filtration Rate >60 (60-); Glucose, Blood 129 mg/dL (70-99); Magnesium, Blood 1.9 mg/dL (1.6-2.4); Phosphorus, Blood 4.9 mg/dL (2.5-4.9); Potassium, Blood 3.5 mmol/L (3.5-5.5); Sodium, Blood 149 mmol/L (136-145)
--- NOTE | 2020-01-08 07:00 | NUR ---
REPORT RECEIVED FROM KRISTEL CARDONA RN. PT RESTING IN BED, AWAKE. EVEN, UNLABORED RESPITATIONS WITNESSED. NO S/SX OF ACUTE DISTRESS. 2 PERSON ASSIST FOR BRIEF CHANGE AND REPOSITIONING. SERRA IN PLACE, DRAINING CLEAR, DENNIS URINE. CATH CARE PROVIDED. PEG TUBE IN PLACE TO RUQ ABD, CLAMPED. PT IS TRACKING CONVERSATION. SPEECH IS SLURRED R/T CVA WITH L SIDED DEFICIT. REDNESS NOTED TO L WRIST IV. PT DENIES NEEDS AT THIS TIME.
--- NOTE | 2020-01-08 07:40 | NUR ---
PT RESTS QUIETLY THROUGHOUT SHIFT WITH SPOUSE AT BEDSIDE, TOLERATES TURNS AND REPOSITIONING WELL, DOES PREFER TO BE FACING DIRECTION THAT SPOUSE IS AND COMPLAINS "I CAN'T SEE YOU" IF SHE IS FACED AWAY FROM HIM, TURNS SINCE 0100 HAVE BEEN SUPINE AND RIGHT TO ACCOMODATE THIS REQUEST. NO BLEEDING HAS BEEN NOTED THIS SHIFT, SHE WAS INCONT X 1 OF DARK GREEN BOWEL MOVEMENT AND HAS CONTINUED TO DENY ABD PAIN AND NAUSEA THROUGHOUT NOC. PRESSURES HAVE MAINTAINED STABLE AND HEART RATE HAS IMPROVED FROM 110-120S TO LOW 100S OF THIS AM. LUNGS REMAIN CLEAR THROUGHOUT WITH SATS MAINTAINING ON ROOM AIR. DRAIN SPONGE AROUND PEG TUBE INSERTION CONTINUES WITHOUT CHANGES FROM LAST NOC.
--- NOTE | 2020-01-08 08:30 | NUR ---
[id number] 0830 - PT SELF REMOVED CLONIDINE PATCH FROM R SHOULDER. PT STATES IT WAS BOTHERING HER AND IT WAS ITCHY. 899 - APPLIED SCDS B/L LOVENOX IS BEING HELD FOR CONCERNS OF BLEEDING. 939 - SPOKE TO GI , NEW ORDER TO FLUSH PEG TUBE WITH 60CC NS - DONE. CLEAR LIQUID ASPIRATED BACK. 944 - SPOKE TO [facility] PHARMACIST REGARDING CLONIDINE PATCH. ORDER CHANGED TO . NEW PATCH APPLIED ORDERED.
--- NOTE | 2020-01-08 11:30 | NUR ---
PT SITTING ON EOB WITH PHYSICAL THERAPY. PT IS RESISTANT TO THERAPY. STATES "YOU'RE MAKING ME UPSET". PT AND THIS RN EXPLAIN IMPORTANCE OF THERAPY FOR STRENGTHENING. PT IS NOT FOLLOWING COMMANDS AND PUSHING AGAINST BEDRAIL. ADLS PERFORMED. 2 PERSON ASSIST FOR BRIEF CHANGE AND REPOSITIONING. 1200 BLOOD DRAW COLLECTED VIA RUE POWERGLIDE. FLUSHED WITH 10CC NS. WASTED 5CC. COLLECTED 4CC WHOLE LAB. SENT VIA TUBE SYSTEM TO LAB.
[2020-01-08 12:44] LABS: Hematocrit 23.6 % (33.0-51.0); Hemoglobin 7.7 g/dL (11.5-16.0)
--- NOTE | 2020-01-08 14:00 | NUR ---
PT RESTING IN BED. AT BEDSIDE. 2 PERSON ASSIST FOR BRIEF CHECK, WHICH IS CLEAN AND REPOSITIONING TO R SIDE. CBG CHECKED BY UMANG, RN = 112. STARTED PEG TUBE FEEDING ORDERED. JEVITY 1.5 @ 50CC/HR. PT C/O ABD PAIN AND NAUSEA. HOB GREATER THAN 30 DEGREES. ENCOURAGED TO NOTIFY RN IF THIS WORSENS OR FOR EMESIS. AGREES. C/O LOW BACK PAIN - PROVIDED PRN PAIN MED.
--- NOTE | 2020-01-08 15:09 | NUR ---
Pt. is better today prayed for pt.
--- NOTE | 2020-01-08 15:59 | NUR ---
1455 - CALLED DR YEUNG. NO ANSWER. LEFT MESSAGE 1525 - CALLED DR YEUNG FOR NEW ORDER TO DC CLINIIX TUBE FEEDING HAS BEEN STARTED. 1600 - SPEECH THERAPY AT BEDSIDE.
--- NOTE | 2020-01-08 18:00 | NUR ---
PT RESTING IN BED, AT BEDSIDE. LAB AT BEDSIDE FOR REPEAT LABS. FLUSHED POWERGLIDE WITH 10CC NS. POWERGLIDE IS POSITIONAL. REQUIRES RUE EXTENDED FULLY ABOVE HEAD, WITH SIGNIFICANT TRACTION APPLIED FOR BLOOD RETURN. WASTED 6 CC BLOOD. COLLECTED 4 CC WHOLE BLOOD. FLUSHED WITH 10CC NS. CAP CHANGED.
--- NOTE | 2020-01-08 18:53 | NUR ---
CALLED DR TONY TO NOTIFY OF NA = [phone]. NO NEW ORDERS AT THIS TIME
--- NOTE | 2020-01-08 19:00 | NUR ---
REPORT GIVEN TO CRISSY SWEET. PT RESTING IN BED. REMAINS AT BEDSIDE.
[2020-01-08 19:08] LABS: Hematocrit 21.5 % (33.0-51.0)
--- NOTE | 2020-01-08 20:00 | NUR ---
ASSUMED CARE: PT ALERT. TRIES TO SPEAK HOWEVER SHE IS DIFFICULT TO UNDERSTAND HER SPEECH IS FAIRLY GARBLED. L SIDED WEAKNESS. NO PURPOSEFUL MOVEMENTS NOTED ON L SIDE. SBP I NTHE 90S, HR IN THE 80S. CLONIDINE PATCH ON L SHOULDER. LUNG SOUNDS CLEAR ON RA. SPO2 >90%. PEG TUBE IN PLACE WITH JEVITY RUNNING AT 50MLS/HR. SERRA IN PLACE DRAINING DENNIS URINE. 20G IN LFA AND PG IN DENICE. PG FLUSHES WELL BUT DOES NOT DRAW BACK. D5W INFUSING AT 75MLS/HR. WILL CONTINUE TO MONITOR
[2020-01-09 04:00] LABS: BASOPHILS ABSOLUTE AUTO 0.04 K/mm3 (0.00-0.23); BASOPHILS PERCENT AUTO 1 % (0-2); EOSINOPHILS ABSOLUTE AUTO 0.23 K/mm3 (0.00-0.68); EOSINOPHILS PERCENT AUTO 3 % (0-6); Hematocrit 21.8 % (33.0-51.0); Hemoglobin 7.1 g/dL (11.5-16.0); IMMATURE GRAN ABSOLUTE AUTO 0.06 K/mm3 (0.00-0.10); IMMATURE GRAN PERCENT AUTO 1 % (0-1); LYMPHOCYTES ABSOLUTE AUTO 1.42 K/mm3 (0.84-5.20); LYMPHOCYTES PERCENT AUTO 17 % (21-46); MONOCYTES ABSOLUTE AUTO 0.64 K/mm3 (0.16-1.47); MONOCYTES PERCENT AUTO 8 % (4-13); Mean Corpuscular HGB Conc 32.6 g/dL (31.5-36.5); Mean Corpuscular Volume 98 fL (80-100); Mean Platelet Volume 10.4 fL (9.1-12.4); NEUTROPHILS ABSOLUTE AUTO 5.95 K/mm3 (1.96-9.15); NEUTROPHILS PERCENT AUTO 71 % (41-73); Platelet Count 338 K/mm3 (150-400); RDW Coefficient Variation 19.2 % (11.7-14.2); RDW Standard Deviation 64.5 fL (35.1-46.3); Red Blood Cell Count 2.22 M/mm3 (3.80-5.20); White Blood Cell Count 8.34 K/mm3 (4.00-11.30)
[2020-01-09 04:18] LABS: Albumin, Blood 2.1 g/dL (3.4-5.0); Anion Gap 6 mmol/L (6-16); Blood Urea Nitrogen 19 mg/dL (8-24); Bun/Creatinine Ratio 57.9 (12.0-20.0); CO2, Blood 26 mmol/L (21-32); Calcium, Blood 8.1 mg/dL (8.5-10.1); Chloride, Blood 110 mmol/L (98-108); Creatinine, Blood 0.33 mg/dL (0.40-1.00); Glomerular Filtration Rate >60 (60-); Glucose, Blood 147 mg/dL (70-99); Phosphorus, Blood 4.8 mg/dL (2.5-4.9); Potassium, Blood 3.5 mmol/L (3.5-5.5); Sodium, Blood 142 mmol/L (136-145)
--- NOTE | 2020-01-09 05:33 | NUR ---
SHIFT SUMMARY: PT SLEPT MAJORITY OF SHIFT. NEUROLOGICALLY REMAINS UNCHANGED. VSS. SATS WELL ON RA. PEG TUBE DRESSING C/D/I. PT HAD A MED BLACK LOOSE STOOL X 1. HGB STABLE AT 7.1 UP A LITTLE FROM PREVIOUS DRAW. SERRA DRAINING TO GRAVITY. CLEAR DENNIS. 20G IN LFA AND PG TO DENICE. D5NS AT 75MLS/HR. JEVITY AT 50MLS/HR. WILL PASS REPORT TO ONCOMING SHIFT
[2020-01-09 09:17] LABS: Percent Saturation 14.5 % (15.0-50.0)
[2020-01-09 12:28] LABS: Hematocrit 22.5 % (33.0-51.0); Hemoglobin 7.2 g/dL (11.5-16.0)
--- NOTE | 2020-01-09 13:41 | NUR ---
Pt. is with her nurses and I did not go in to see her .
--- NOTE | 2020-01-09 15:35 | NUR ---
Spiritual care visit conducted. Patient is lying in bed and alert. Patient's spouse, Denny, is bedside and holding patient's hand. Patient has improved speech and is quicker to respond. Patient tells me that she is doing better everyday. Denny explains about the bleed and the move to ICU and her improvement since the bleed was cauterized. I encourage self-care for Denny and talk about ways he can stay emotionally full and physically rested.I provide therapeutic listening, companionship and prayer. Patient responds well and shows signs of an elevated mood. I will continue to remain available to patient and family.
--- NOTE | 2020-01-09 18:33 | NUR ---
SHIFT SUMMARY PT IS ALERT AND ORIENTED TO PERSON. SPEECH AND CONVERSATION WOULD BE CLEAR MOST OF THE DAY, HOWEVER, PT WOULD HAVE MOMENTS WERE THE SPEECH WAS GARBLED. TODAY PT HAD TWO INCONTINUE LOOSE/TARRY BLACK BM'S. H/H HAS BEEN STABLE. BP WAS SOFTER THIS MORNING. ADJUSTMENTS TO BP MEDS WERE MADE BY . THIS MORNING A HEAD CT WAS COMPLETED AND DR YEUNG NOTIFIED PT AND FAMILY OF NEWER INFARCT. PEG TUBE HAS HAD MINIMAL RESIDUALS AND TUBE FEEDS HAVE BEEN RUNNING TODAY WITH NO PROBLEMS. MONITOR HAS SHOWN PT TO BE IN SINUS RHYTHM.
--- NOTE | 2020-01-09 20:00 | NUR ---
ASSUMED CARE OF PT AT 1915. REPORT RECEIVED AT BEDSIDE. PT'S AT BEDSIDE. ATTENTIVE TO PT'S NEEDS. PT PRESENTS IN BED IN NO DISTRESS. DISCUSSED PLAN OF CARE WITH AND PT. TUBE FEEDING PER PEG TUBE CONTINUES. NO ISSUES TO NOTE. WILL REVIEW CHART AND PLAN OF CARE FOR THIS PT.
--- NOTE | 2020-01-10 01:58 | NUR ---
PT INCONTINENT TO DARK STOOL. ASSISTS SOMEWHAT WITH TURNS. IS FEARFUL DURING TURNS. PER , PT HAD FALLEN OUT OF BE ONCE AT HOME, AND HAS BEEN FEARFUL SINCE. PT MEDICATED WITH TYLENOL FOR COMPLAINT OF HEADACHE. THIS HAS SINCE RESOLVED. WILL CONTINUE TO MONITOR PT
[2020-01-10 04:18] LABS: BASOPHILS ABSOLUTE AUTO 0.04 K/mm3 (0.00-0.23); BASOPHILS PERCENT AUTO 1 % (0-2); EOSINOPHILS ABSOLUTE AUTO 0.33 K/mm3 (0.00-0.68); EOSINOPHILS PERCENT AUTO 5 % (0-6); Hematocrit 22.2 % (33.0-51.0); Hemoglobin 7.2 g/dL (11.5-16.0); IMMATURE GRAN ABSOLUTE AUTO 0.06 K/mm3 (0.00-0.10); IMMATURE GRAN PERCENT AUTO 1 % (0-1); LYMPHOCYTES ABSOLUTE AUTO 1.27 K/mm3 (0.84-5.20); LYMPHOCYTES PERCENT AUTO 18 % (21-46); MONOCYTES ABSOLUTE AUTO 0.46 K/mm3 (0.16-1.47); MONOCYTES PERCENT AUTO 7 % (4-13); Mean Corpuscular HGB 31.7 pg (26.0-34.0); Mean Corpuscular HGB Conc 32.4 g/dL (31.5-36.5); Mean Corpuscular Volume 98 fL (80-100); NEUTROPHILS ABSOLUTE AUTO 4.86 K/mm3 (1.96-9.15); NEUTROPHILS PERCENT AUTO 69 % (41-73); Platelet Count 394 K/mm3 (150-400); RDW Coefficient Variation 17.9 % (11.7-14.2); RDW Standard Deviation 62.8 fL (35.1-46.3); Red Blood Cell Count 2.27 M/mm3 (3.80-5.20); White Blood Cell Count 7.02 K/mm3 (4.00-11.30)
[2020-01-10 04:40] LABS: Alanine Aminotransfer (ALT/SGP 41 U/L (12-78); Albumin, Blood 2.1 g/dL (3.4-5.0); Albumin/Globulin Ratio 0.7 (0.8-1.8); Alk Phos 74 U/L (50-136); Anion Gap 7 mmol/L (6-16); Aspartate Aminotrans (AST/SGOT 43 U/L (12-37); Bilirubin, Total 0.4 mg/dL (0.1-1.0); Blood Urea Nitrogen 11 mg/dL (8-24); Bun/Creatinine Ratio 32.7 (12.0-20.0); CO2, Blood 25 mmol/L (21-32); Calcium, Blood 8.1 mg/dL (8.5-10.1); Chloride, Blood 106 mmol/L (98-108); Creatinine, Blood 0.34 mg/dL (0.40-1.00); Globulin, Blood 3.1 g/dL (2.2-4.0); Glomerular Filtration Rate >60 (60-); Glucose, Blood 134 mg/dL (70-99); Magnesium, Blood 1.8 mg/dL (1.6-2.4); Potassium, Blood 3.6 mmol/L (3.5-5.5); Sodium, Blood 138 mmol/L (136-145); Total Protein, Blood 5.2 g/dL (6.4-8.2)
--- NOTE | 2020-01-10 06:20 | NUR ---
PT REMAINS WITH LEFT SIDE NEGLECT. VERY FEARFUL OF FALLING WITH TURNS AND NEEDS A LOT OF REASSURANCE. REMAINS AT BEDSIDE. SOMEWHAT DIFFICULT AT TIMES TO UNDERSTAND PT'S WORDS. AT OTHER TIME IS ABLE TO MAKE HERSELF CLEAR AND EASY TO UNDERSTAND. HAS BEEN MEDICATED ONCE WITH TYLENOL FOR COMPLAINT OF HEADACHE. NO FURTHER COMPLAINTS AFTER THIS. WILL CONTINUE TO MONITOR PT, AND WILL REPORT OFF TO ONCOMING RN.
--- NOTE | 2020-01-10 07:23 | NUR ---
ASSUMED PATIENT CARE. PATIENT SLEEPING COMFORTABLY IN BED, NO SIGNS OF ACUTE DISTRESS. PATIENT SPOUSE ASLEEP AT BEDSIDE. WCTM.
--- NOTE | 2020-01-10 11:30 | NUR ---
PATIENT REPORTS SUDDEN NUMBNESS ON ENTIRE LEFT SIDE, EPISODE LASTING ROUGHLY 10 MINUTES, SENSATION BEGINNING TO RETURN TO AFFECTED SIDE. DR. YEUNG NOTIFIED, NO NEW ORDERS GIVEN.
--- NOTE | 2020-01-10 14:03 | NUR ---
Joint visit with Caremanpetty John. Pt resting in bed upon arrival. Pt reports feeling comfortable. No S/S of distress at this time. Pt's Denny at bedside. Joint conversation regarding discharge plan with Dora. Listened as Denny expresses concerns regarding the inability of not being able to visit with Pt if she goes to SNF due to visitor retrictions. Educated Denny on consequences of Pt going home without rehabilitation. Discussed the potential of Pt needing 24 hour care. Continued therapeutic listening and validated concerns. Dora calls SNF facilities to determince visitor restrictions. [facility] is allowing outside visitors twice a day for an hour. Denny expresses some relief but reports needing more time to consider his options. No other concerns reported at this time. Palliative Care will remain available.
--- NOTE | 2020-01-10 15:29 | NUR ---
REPORT GIVEN TO VITA WOODWARD ON MEDICAL.
--- NOTE | 2020-01-10 16:31 | NUR ---
RECEIVED REPORT FROM ICU NURSE YASIR. PT TRANSFER FROM ICU 9 TO MEDICAL [facility]. PT AOX4, ON BEDREST, NPO. PT HAS PICC ON R AND 20G ON L. PT HAD A HX OF CVA ON L SIDE. YAAKOV ON THE BEDSIDE. BED IS IN THE LOWEST POSITION; CALL LIGHTS WITHIN REACH AND WILL CONT MONITOR.
[2020-01-11 04:50] LABS: Hemoglobin 8.4 g/dL (11.5-16.0)
[2020-01-11 05:07] LABS: Albumin, Blood 2.5 g/dL (3.4-5.0); Anion Gap 8 mmol/L (6-16); Blood Urea Nitrogen 12 mg/dL (8-24); Bun/Creatinine Ratio 35.5 (12.0-20.0); CO2, Blood 26 mmol/L (21-32); Calcium, Blood 8.6 mg/dL (8.5-10.1); Chloride, Blood 104 mmol/L (98-108); Creatinine, Blood 0.34 mg/dL (0.40-1.00); Glomerular Filtration Rate >60 (60-); Glucose, Blood 151 mg/dL (70-99); Magnesium, Blood 2.2 mg/dL (1.6-2.4); Phosphorus, Blood 4.2 mg/dL (2.5-4.9); Sodium, Blood 138 mmol/L (136-145)
--- NOTE | 2020-01-11 07:17 | NUR ---
FLOWER MACHINE OPERATOR SUMMARY Patient was quite anxious each time staff would try to adjust her position. Each time, she would grab onto something with her right arm and not allow any position changes. When asked why she was so adamant about not moving, she explained that twice just before her CVA, she fell and hit her head on concrete and that she was terrified of falling. Her spouse Denny was able to assist in holding her hand so care could be given. Sharp cath was DC'd after several times of clamping and unclamping. Patient tolerated well. No residuals from tube feeds overnight. Spouse excellent support for anxious patient.
--- NOTE | 2020-01-11 15:30 | NUR ---
SHIFT SUMMARY PT IS A/O TO SELF AND FAMILY. SHE CAN FOLLOW SOME DIRECTIONS BUT NEEDS QUEING. SHE IS VERY FEARFUL OF FALLING AND GRABS ONTO ANYTHING AND EVERYTHING. SHE HAS LEFT SIDE NEGLECT. SHE WAS ABLE TO WORK WITH THERAPY TODAY AND WE SAT HER UP ON THE SIDE OF THE BED FOR SEVERAL MINUTES. PEG TUBE IS PATENT AND SHE HAS BEEN SWITCHED TO BOLUS FEEDS WHICH SHE IS TOLERATING WELL. SHE IS NPO. HER FAMILY MET WITH CARE MANAGEMENT TO DISCUSS HER DC PLANS THIS MORNING AND THEY ARE ALL IN AGREEMENT NOW. PLAN IS FOR PT TO DC TO [facility] THIS AFTERNOON. REMAINS IN THE ROOM AT THE BEDSIDE AND HE CALLS FOR HELP WHEN NEEDED. BED ALARM IS ON FOR SAFETY AND IN THE LOW POSITION.
[2020-01-11] MEDS ORDERED: ACET325UDC PO (16:35)
[2020-01-11] MEDS ORDERED: Keppra100 MG/1 M PO (16:36)
[2020-01-11] MEDS ORDERED: ZEGERID 20 MG1 EACH PT (16:37)
[2020-01-11] MEDS ORDERED: ATOR20 PT (16:38)
== END 2020-01-11 18:47 | DRG 64 ==
LOC: ER 03:57 → PCU 05:28 → ICUW 05:28 → ERHOLD 05:28 → MEDS 05:28 → ICUW 07:06 → MEDS 12-27 21:25 → PCU 01-01 00:34 → MEDS 01-03 20:14 → ICUW 01-07 11:15 → MEDS 01-10 16:11 → ENPENDDIS 01-11 16:04 → MEDS 01-11 18:47
PROVIDERS: Emergency Medicine; Internal Medicine; Internal Medicine Gastroenterology; Internal Medicine Nephrology; ADMIT Family Medicine
PROC: 02HV33Z Insertion of Infusion Device into Superior Vena Cava, Percutaneous Approach (ICD-10-PCS; principal; 2019-12-25)
PROC: 0DH63UZ Insertion of Feeding Device into Stomach, Percutaneous Approach (ICD-10-PCS; 2020-01-04)
PROC: 3E0G76Z Introduction of Nutritional Substance into Upper GI, Via Natural or Artificial Opening (ICD-10-PCS; 2020-01-04)
PROC: 3E0G8GC Introduction of Other Therapeutic Substance into Upper GI, Via Natural or Artificial Opening Endoscopic (ICD-10-PCS; 2020-01-05)
PROC: 0W3P8ZZ Control Bleeding in Gastrointestinal Tract, Via Natural or Artificial Opening Endoscopic (ICD-10-PCS; 2020-01-05)
PROC: 30243N1 Transfusion of Nonautologous Red Blood Cells into Central Vein, Percutaneous Approach (ICD-10-PCS; 2020-01-07)
DX: I63.511 Cerebral infarction due to unspecified occlusion or stenosis of right middle cerebral artery (principal); G92 Toxic encephalopathy; E87.1 Hypo-osmolality and hyponatremia; G40.209 Localization-related (focal) (partial) symptomatic epilepsy and epileptic syndromes with complex partial seizures, not intractable, without status epilepticus; D62 Acute posthemorrhagic anemia; G81.94 Hemiplegia, unspecified affecting left nondominant side; E44.0 Moderate protein-calorie malnutrition; L40.9 Psoriasis, unspecified; Z87.891 Personal history of nicotine dependence; E87.6 Hypokalemia; E78.5 Hyperlipidemia, unspecified; R19.7 Diarrhea, unspecified; N18.1 Chronic kidney disease, stage 1; I25.2 Old myocardial infarction; E87.70 Fluid overload, unspecified; E83.39 Other disorders of phosphorus metabolism; E88.09 Other disorders of plasma-protein metabolism, not elsewhere classified; I25.10 Atherosclerotic heart disease of native coronary artery without angina pectoris; R13.10 Dysphagia, unspecified; R62.7 Adult failure to thrive; K44.9 Diaphragmatic hernia without obstruction or gangrene; K22.2 Esophageal obstruction; K70.30 Alcoholic cirrhosis of liver without ascites; Z68.25 Body mass index [BMI] 25.0-25.9, adult; K94.21 Gastrostomy hemorrhage; Z20.828 Contact with and (suspected) exposure to other viral communicable diseases; I12.9 Hypertensive chronic kidney disease with stage 1 through stage 4 chronic kidney disease, or unspecified chronic kidney disease; F10.10 Alcohol abuse, uncomplicated; Y90.0 Blood alcohol level of less than 20 mg/100 ml
CPT/HCPCS: 36415; 36430; 36556; 51702; 70450; 70551; 71045; 74230; 80053; 80069; 80400; 81001; 82140; 82330; 82533; 82607; 82728; 82746; 82947; 83540; 83550; 83605; 83690; 83735; 83880; 83930; 84100; 84132; 84145; 84295; 84443; 84484; 84550; 85014; 85018; 85025; 85027; 85610; 86850; 86900; 86901; 86920; 86923; 87040; 87077; 87086; 87186; 92526; 92610; 92611; 93005; 93010; 93308; 93880; 93971; 95819; 96365-59; 96375-59; 97110; 97112; 97162; 97167; 97530; 99285-25; A9270-GY; C1751; C1769; C9113; G0480; J0690; J0696; J0834; J1100; J1650; J1940; J1953; J2060; J2250; J2405; J2704; J3010; J3411; J3480; J7030; J7040; J7050; J7060; J7070; J7120; J7131; P9016; Q2038; U0003

== ENCOUNTER 2020-03-05 07:29 | Emergency (ER) | payer OTHER ==
[~2020-03-05] VITALS: Ht 175.3 cm; Wt 72.6 kg
[~2020-03-05 07:29] MED LIST changes: +ACET325UDC PO; +ATOR20 PT; +Keppra100 MG/1 M PO; +ZEGERID 20 MG1 EACH PT
[2020-03-05 07:58] LABS: BASOPHILS ABSOLUTE AUTO 0.05 K/mm3 (0.00-0.23); BASOPHILS PERCENT AUTO 1 % (0-2); EOSINOPHILS ABSOLUTE AUTO 0.19 K/mm3 (0.00-0.68); EOSINOPHILS PERCENT AUTO 4 % (0-6); Hemoglobin 11.3 g/dL (11.5-16.0); IMMATURE GRAN ABSOLUTE AUTO 0.01 K/mm3 (0.00-0.10); IMMATURE GRAN PERCENT AUTO 0 % (0-1); LYMPHOCYTES ABSOLUTE AUTO 1.77 K/mm3 (0.84-5.20); LYMPHOCYTES PERCENT AUTO 39 % (21-46); MONOCYTES PERCENT AUTO 9 % (4-13); Mean Corpuscular HGB 28.3 pg (26.0-34.0); Mean Corpuscular HGB Conc 31.4 g/dL (31.5-36.5); Mean Corpuscular Volume 90 fL (80-100); Mean Platelet Volume 10.9 fL (9.1-12.4); NEUTROPHILS ABSOLUTE AUTO 2.07 K/mm3 (1.96-9.15); NEUTROPHILS PERCENT AUTO 46 % (41-73); Platelet Count 208 K/mm3 (150-400); RDW Coefficient Variation 13.4 % (11.7-14.2); RDW Standard Deviation 44.7 fL (35.1-46.3); White Blood Cell Count 4.49 K/mm3 (4.00-11.30)
[2020-03-05 08:22] LABS: Alanine Aminotransfer (ALT/SGP 11 U/L (12-78); Albumin/Globulin Ratio 0.8 (0.8-1.8); Alk Phos 109 U/L (50-136); Anion Gap 7 mmol/L (6-16); Aspartate Aminotrans (AST/SGOT 21 U/L (12-37); Bilirubin, Total 0.5 mg/dL (0.1-1.0); Blood Urea Nitrogen 10 mg/dL (8-24); Bun/Creatinine Ratio 23.3 (12.0-20.0); CO2, Blood 28 mmol/L (21-32); Calcium, Blood 9.5 mg/dL (8.5-10.1); Chloride, Blood 106 mmol/L (98-108); Creatinine, Blood 0.43 mg/dL (0.40-1.00); Globulin, Blood 3.8 g/dL (2.2-4.0); Glomerular Filtration Rate >60 (60-); Glucose, Blood 98 mg/dL (70-99); Potassium, Blood 3.5 mmol/L (3.5-5.5); Sodium, Blood 141 mmol/L (136-145); Total Protein, Blood 6.8 g/dL (6.4-8.2); Troponin I <0.015 ng/mL (0.000-0.040)
[2020-03-05] MEDS ORDERED: CYCL10 PO (09:28)
== END 2020-03-05 10:35 | disposition home or self-care (01) ==
LOC: ER 07:29
PROVIDERS: Emergency Medicine
DX: R07.9 Chest pain, unspecified (principal); M79.605 Pain in left leg; I69.354 Hemiplegia and hemiparesis following cerebral infarction affecting left non-dominant side; I10 Essential (primary) hypertension; I25.2 Old myocardial infarction; E78.5 Hyperlipidemia, unspecified; Z79.82 Long term (current) use of aspirin; Z79.899 Other long term (current) drug therapy
CPT/HCPCS: 71045; 76705; 80053; 83690; 84484; 85025; 93005; 93010; 96374; 96375; 99284-25; J2405; J3010

== ENCOUNTER 2020-04-08 16:00 | Emergency (ER) | payer OTHER ==
[~2020-04-08] VITALS: Ht 172.7 cm; Wt 72.6 kg
[~2020-04-08 16:00] MED LIST changes: +CYCL10 PO
[2020-04-08 16:42] LABS: BASOPHILS ABSOLUTE AUTO 0.06 K/mm3 (0.00-0.23); BASOPHILS PERCENT AUTO 1 % (0-2); EOSINOPHILS PERCENT AUTO 3 % (0-6); Hematocrit 40.4 % (33.0-51.0); IMMATURE GRAN ABSOLUTE AUTO 0.02 K/mm3 (0.00-0.10); IMMATURE GRAN PERCENT AUTO 0 % (0-1); LYMPHOCYTES ABSOLUTE AUTO 2.34 K/mm3 (0.84-5.20); LYMPHOCYTES PERCENT AUTO 34 % (21-46); MONOCYTES ABSOLUTE AUTO 0.64 K/mm3 (0.16-1.47); MONOCYTES PERCENT AUTO 9 % (4-13); Mean Corpuscular HGB 28.3 pg (26.0-34.0); Mean Corpuscular HGB Conc 32.2 g/dL (31.5-36.5); Mean Corpuscular Volume 88 fL (80-100); Mean Platelet Volume 10.4 fL (9.1-12.4); NEUTROPHILS ABSOLUTE AUTO 3.68 K/mm3 (1.96-9.15); NEUTROPHILS PERCENT AUTO 53 % (41-73); Platelet Count 231 K/mm3 (150-400); RDW Coefficient Variation 14.9 % (11.7-14.2); White Blood Cell Count 6.94 K/mm3 (4.00-11.30)
[2020-04-08 17:02] LABS: Alanine Aminotransfer (ALT/SGP 18 U/L (12-78); Albumin, Blood 3.6 g/dL (3.4-5.0); Albumin/Globulin Ratio 0.9 (0.8-1.8); Alk Phos 168 U/L (50-136); Anion Gap 8 mmol/L (6-16); Aspartate Aminotrans (AST/SGOT 21 U/L (12-37); Bilirubin, Total 0.5 mg/dL (0.1-1.0); Blood Urea Nitrogen 16 mg/dL (8-24); CO2, Blood 22 mmol/L (21-32); Chloride, Blood 106 mmol/L (98-108); Globulin, Blood 4.1 g/dL (2.2-4.0); Glomerular Filtration Rate >60 (60-); Glucose, Blood 100 mg/dL (70-99); Potassium, Blood 3.9 mmol/L (3.5-5.5); Sodium, Blood 136 mmol/L (136-145); Total Protein, Blood 7.7 g/dL (6.4-8.2)
[2020-04-08] MEDS ORDERED: CYCL10 PO (23:20)
[2020-04-08] MEDS ORDERED: Norco 5-325 Ta1 EACH PO (23:22)
[2020-04-17] MEDS ORDERED: Estradiol1 MG PO (13:46)
[2020-04-17] MEDS ORDERED: FOLI1 PO (13:47)
[2020-04-17] MEDS ORDERED: Hydrochloroth12.5 MG PO (13:47)
[2020-04-17] MEDS ORDERED: GABA300T24 PO (13:47)
[2020-04-17] MEDS ORDERED: FERROUS GLUCON240 MG PO (13:47)
[2020-04-17] MEDS ORDERED: MELA3 PO (13:48)
[2020-04-17] MEDS ORDERED: Acetaminophen650 M1 PO (13:48)
[2020-04-17] MEDS ORDERED: MEDR5 PO (13:48)
[2020-04-17] MEDS ORDERED: B-1100 M1 PO (13:48)
[2020-04-17] MEDS ORDERED: Prinivil10 MG PO (13:48)
== END 2020-04-08 23:44 | disposition home or self-care (01) ==
LOC: ER 16:00
PROVIDERS: Physician Assistant
DX: I69.354 Hemiplegia and hemiparesis following cerebral infarction affecting left non-dominant side (principal); M79.605 Pain in left leg; M79.604 Pain in right leg; M79.602 Pain in left arm; M79.601 Pain in right arm; G89.29 Other chronic pain; I10 Essential (primary) hypertension; E78.5 Hyperlipidemia, unspecified; I25.2 Old myocardial infarction; Z88.5 Allergy status to narcotic agent; Z88.0 Allergy status to penicillin; Z79.82 Long term (current) use of aspirin; Z79.899 Other long term (current) drug therapy
CPT/HCPCS: 36415; 70450; 80053; 85025; 99285-25; A9270

== ENCOUNTER 2020-04-25 11:54 | Day surgery (SDC) | payer OTHER ==
[~2020-04-25] VITALS: Ht 172.7 cm; Wt 72.7 kg
[~2020-04-25 11:54] MED LIST changes: +Acetaminophen650 M1 PO; +B-1100 M1 PO; +Estradiol1 MG PO; +FERROUS GLUCON240 MG PO; +FOLI1 PO; +GABA300T24 PO; +MELA3 PO; +Norco 5-325 Ta1 EACH PO
[2020-04-25] MEDS ORDERED: CARV3.125 PO (12:40)
[2020-04-25] MEDS ORDERED: Aspir 8181 MG PO (12:40)
[2020-04-25] MEDS ORDERED: TRAM50 (12:41)
[2020-04-25] MEDS ORDERED: ATOR20 PO (12:41)
[2020-04-25] MEDS ORDERED: Baclofen20 MG PO (12:41)
[2020-04-25] MEDS ORDERED: CYCL10 (12:42)
[2020-04-25] MEDS ORDERED: LEVE500 (12:42)
--- NOTE | 2020-04-25 15:12 | NUR ---
04/25/20 1512 Khadijah Fleming PT. VERBALIZES NO DIFFERENT PAIN THAN WHEN CAME IN. PT. ASSISTED BY TWO NURSES TO GET DRESSED & 2 ASSIST INTO HER WC.
== END 2020-04-25 15:00 | disposition home or self-care (01) ==
LOC: ORSCSDS 11:54
PROVIDERS: Internal Medicine Gastroenterology
PROC: 0DP64UZ Removal of Feeding Device from Stomach, Percutaneous Endoscopic Approach (ICD-10-PCS; principal; 2020-04-25 13:15)
DX: Z43.1 Encounter for attention to gastrostomy (principal); I10 Essential (primary) hypertension; J45.909 Unspecified asthma, uncomplicated; R56.9 Unspecified convulsions; Z87.891 Personal history of nicotine dependence; E66.01 Morbid (severe) obesity due to excess calories; Z68.36 Body mass index [BMI] 36.0-36.9, adult; Z79.899 Other long term (current) drug therapy
CPT/HCPCS: J2704; J7120

== ENCOUNTER 2020-06-27 09:23 | Emergency (ER) | payer OTHER ==
[~2020-06-27] VITALS: Ht 175.3 cm; Wt 70.3 kg
[~2020-06-27 09:23] MED LIST changes: +ATOR20 PO; +Aspir 8181 MG PO; +Baclofen20 MG PO; +CYCL10; +LEVE500; +TRAM50
[2020-06-27] MEDS ORDERED: PREG25 (10:05)
[2020-06-27 10:14] LABS: BASOPHILS ABSOLUTE AUTO 0.04 K/mm3 (0.00-0.23); BASOPHILS PERCENT AUTO 1 % (0-2); EOSINOPHILS ABSOLUTE AUTO 0.13 K/mm3 (0.00-0.68); EOSINOPHILS PERCENT AUTO 3 % (0-6); Hematocrit 33.7 % (33.0-51.0); Hemoglobin 11.3 g/dL (11.5-16.0); IMMATURE GRAN ABSOLUTE AUTO 0.02 K/mm3 (0.00-0.10); IMMATURE GRAN PERCENT AUTO 0 % (0-1); LYMPHOCYTES PERCENT AUTO 36 % (21-46); MONOCYTES ABSOLUTE AUTO 0.51 K/mm3 (0.16-1.47); MONOCYTES PERCENT AUTO 10 % (4-13); Mean Corpuscular HGB Conc 33.5 g/dL (31.5-36.5); Mean Corpuscular Volume 96 fL (80-100); NEUTROPHILS ABSOLUTE AUTO 2.56 K/mm3 (1.96-9.15); NEUTROPHILS PERCENT AUTO 51 % (41-73); Platelet Count 177 K/mm3 (150-400); RDW Coefficient Variation 12.3 % (11.7-14.2); RDW Standard Deviation 43.3 fL (35.1-46.3); Red Blood Cell Count 3.53 M/mm3 (3.80-5.20); White Blood Cell Count 5.06 K/mm3 (4.00-11.30)
[2020-06-27 10:23] LABS: Alanine Aminotransfer (ALT/SGP 19 U/L (12-78); Albumin, Blood 3.5 g/dL (3.4-5.0); Alk Phos 136 U/L (50-136); Anion Gap 4 mmol/L (6-16); Aspartate Aminotrans (AST/SGOT 20 U/L (12-37); Bilirubin, Total 0.5 mg/dL (0.1-1.0); Blood Urea Nitrogen 18 mg/dL (8-24); Bun/Creatinine Ratio 24.1 (12.0-20.0); CO2, Blood 29 mmol/L (21-32); Chloride, Blood 111 mmol/L (98-108); Creatinine, Blood 0.75 mg/dL (0.40-1.00); Globulin, Blood 3.4 g/dL (2.2-4.0); Glomerular Filtration Rate >60 (60-); Glucose, Blood 95 mg/dL (70-99); Potassium, Blood 3.9 mmol/L (3.5-5.5); Sodium, Blood 144 mmol/L (136-145); Total Protein, Blood 6.9 g/dL (6.4-8.2)
[2020-06-27 10:38] LABS: Source, Urine Catheter
[2020-06-27 11:01] LABS: Blood, Urine 1+ (Neg); Glucose Qualitative, Urine Neg (Neg); Ketones, Urine Neg (Neg); Leukocyte Esterase, Urine Neg (Neg); Nitrite, Urine Pos (Neg); Protein, Urine 2+ (Neg); Urobilinogen, Urine 2+ (Normal)
[2020-06-27 11:15] LABS: Bilirubin, Urine 2+ (Neg)
[2020-06-27 11:16] LABS: Color, Urine Orange (P-Yellow)
[2020-06-27 11:18] LABS: Appearance, Urine Hazy (Clear)
[2020-06-27 11:19] LABS: Bacteria Many /hpf; Calcium Oxalate Crystals Few /hpf; Squamous Epithelial Cells Few /hpf (Few)
[2020-06-27] MEDS ORDERED: Macrodantin100 MG PO (11:35)
== END 2020-06-27 12:03 | disposition home or self-care (01) ==
LOC: ER 09:23
PROVIDERS: Physician Assistant
DX: G45.9 Transient cerebral ischemic attack, unspecified (principal); N39.0 Urinary tract infection, site not specified; I10 Essential (primary) hypertension; I25.2 Old myocardial infarction; E78.5 Hyperlipidemia, unspecified; Z79.899 Other long term (current) drug therapy; Z88.5 Allergy status to narcotic agent; Z88.1 Allergy status to other antibiotic agents
CPT/HCPCS: 29125; 36415; 70450; 80053; 81001; 85025; 87077; 87086; 87186; 93005; 93010; 99283-25; P9612

== ENCOUNTER 2020-08-19 16:11 | Observation (INO) | payer OTHER ==
[~2020-08-19] VITALS: Ht 167.6 cm; Wt 55.0 kg
[~2020-08-19 16:11] MED LIST changes: +Macrodantin100 MG PO; +PREG25
[2020-08-19 16:35] LABS: BASOPHILS ABSOLUTE AUTO 0.04 K/mm3 (0.00-0.23); BASOPHILS PERCENT AUTO 1 % (0-2); EOSINOPHILS ABSOLUTE AUTO 0.09 K/mm3 (0.00-0.68); EOSINOPHILS PERCENT AUTO 2 % (0-6); Hematocrit 32.8 % (33.0-51.0); IMMATURE GRAN ABSOLUTE AUTO 0.01 K/mm3 (0.00-0.10); IMMATURE GRAN PERCENT AUTO 0 % (0-1); LYMPHOCYTES ABSOLUTE AUTO 1.47 K/mm3 (0.84-5.20); LYMPHOCYTES PERCENT AUTO 29 % (21-46); MONOCYTES ABSOLUTE AUTO 0.32 K/mm3 (0.16-1.47); MONOCYTES PERCENT AUTO 6 % (4-13); Mean Corpuscular HGB 32.2 pg (26.0-34.0); Mean Corpuscular HGB Conc 33.5 g/dL (31.5-36.5); Mean Corpuscular Volume 96 fL (80-100); Mean Platelet Volume 10.8 fL (9.1-12.4); NEUTROPHILS ABSOLUTE AUTO 3.15 K/mm3 (1.96-9.15); NEUTROPHILS PERCENT AUTO 62 % (41-73); Platelet Count 139 K/mm3 (150-400); RDW Coefficient Variation 11.4 % (11.7-14.2); RDW Standard Deviation 39.8 fL (35.1-46.3); Red Blood Cell Count 3.42 M/mm3 (3.80-5.20); White Blood Cell Count 5.08 K/mm3 (4.00-11.30)
[2020-08-19 17:00] LABS: Alanine Aminotransfer (ALT/SGP 14 U/L (12-78); Albumin, Blood 3.7 g/dL (3.4-5.0); Albumin/Globulin Ratio 1.1 (0.8-1.8); Alk Phos 115 U/L (50-136); Anion Gap 4 mmol/L (6-16); Aspartate Aminotrans (AST/SGOT 12 U/L (12-37); Bilirubin, Total 0.5 mg/dL (0.1-1.0); Blood Urea Nitrogen 33 mg/dL (8-24); Bun/Creatinine Ratio 45.7 (12.0-20.0); CO2, Blood 28 mmol/L (21-32); Calcium, Blood 9.6 mg/dL (8.5-10.1); Chloride, Blood 108 mmol/L (98-108); Creatinine, Blood 0.72 mg/dL (0.40-1.00); Globulin, Blood 3.4 g/dL (2.2-4.0); Glomerular Filtration Rate >60 (60-); Glucose, Blood 106 mg/dL (70-99); Potassium, Blood 4.1 mmol/L (3.5-5.5); Sodium, Blood 140 mmol/L (136-145); Total Protein, Blood 7.1 g/dL (6.4-8.2)
[2020-08-19 17:45] LABS: Source, Urine Catheter
[2020-08-19 17:49] LABS: Appearance, Urine Hazy (Clear); Bilirubin, Urine Neg (Neg); Blood, Urine 1+ (Neg); Color, Urine Yellow (P-Yellow); Glucose Qualitative, Urine Neg (Neg); Ketones, Urine Neg (Neg); Leukocyte Esterase, Urine 1+ (Neg); Nitrite, Urine Neg (Neg); Protein, Urine Neg (Neg); Urobilinogen, Urine NORM (Normal)
[2020-08-19 17:59] LABS: Bacteria Many /hpf; Red Blood Cells, Urine 0-2 /hpf (0-2); Squamous Epithelial Cells Rare /hpf (Few)
[2020-08-19] MEDS ORDERED: TRAM50 PO (21:37)
[2020-08-19] MEDS ORDERED: B-1100 M1 PO (21:39)
[2020-08-19] MEDS ORDERED: CELE200 PO (22:39)
[2020-08-19] MEDS ORDERED: LEVE500 PO (22:40)
[2020-08-19] MEDS ORDERED: PREG100 PO (22:41)
[2020-08-19] MEDS ORDERED: CARV6.25 PO (22:42)
[2020-08-19] MEDS ORDERED: ATOR40TA PO (22:43)
--- NOTE | 2020-08-20 05:06 | NUR ---
SPORTING GOODS SALES ASSOCIATE SUMMARY NEW ADMIT FROM THE ED THIS SHIFT. PT ADMITTED FOR AMS AND UTI, POSS TIA. PT AAOX3 ON ARRIVAL AND PLEASANT. LEFT SIDED FACIAL DROOP AND WEAKNESS NOTED BUT IS BASELINE FROM PREVIOUS CVA ACCORDING TO PT AND HER SO. PT BEDBOUND CURRENTLY AND STATES SINCE HER CVA/CA IN OF LAST YEAR SHE HAS BEEN ALMOST COMPLETELY NON AMBULATORY AND REQUIRES HER HUSBANDS HELP TO STAND UP. PT REPORTS BEING UNABLE TO WALK EVEN WITH HELP FROM . LEFT SIDED DEFECITS ARE SIGNIFICANT, MORE SO IN HER LEFT ARM STRENGTH. SR IN THE 60'S ON TELEMETRY. MEDICATED FOR GENERALIZED PAIN X1 WITH TYLENOL. PT HAS SLEPT MOST OF THE NIGHT. VSS, WILL CONTINUE TO MONITOR.
--- NOTE | 2020-08-20 14:55 | NUR ---
Patient is sitting up in bed and alert. Patient immediately shares that she struggles emotionally because of the direction her life has gone and how it has led to the medical issues she has now. She tells me that she is will DC today and that she is feeling better than when she arrived. She then shares about her Rastafari kay and states that she would appreciate prayer. I gladly provide prayer to which the patient states with tears in her eyes, "It has been a long time since someone prayed for me, that was very meaningful."
--- NOTE | 2020-08-20 15:02 | NUR ---
DISCHARGE PT DISCHARGED TO HOME. THIS RN EXPLAINED DISCHARGE INSTRUCTIONS TO PT AND PT'S SPOUSE. THEY REPORT THEY UNDERSTAND. IV REMOVED WITHOUT DIFFICULTY. CHANGED PT'S ATTENDS. PT HAD A LARGE BM. DRESSED PT WITH SPOUSE'S ASSISTANCE. PT TRANSFERRED VIA WHEELCHAIR TO PRIVATE VEHICLE. BELONGINGS WITH PT.
== END 2020-08-20 13:40 | disposition home health service (06) ==
LOC: ER 16:11 → MEDS 16:12
PROVIDERS: Emergency Medicine; ADMIT Internal Medicine
DX: G92 Toxic encephalopathy (principal); G45.9 Transient cerebral ischemic attack, unspecified; I95.9 Hypotension, unspecified; E86.0 Dehydration; N39.0 Urinary tract infection, site not specified; G40.909 Epilepsy, unspecified, not intractable, without status epilepticus; I10 Essential (primary) hypertension; E78.5 Hyperlipidemia, unspecified; I69.354 Hemiplegia and hemiparesis following cerebral infarction affecting left non-dominant side; I25.2 Old myocardial infarction; Z87.891 Personal history of nicotine dependence; Z79.82 Long term (current) use of aspirin
CPT/HCPCS: 36415; 70450; 80053; 81001; 82947; 85025; 87077; 87086; 87186; 93005; 93010; 96365; 97112; 97163; 97530; 99285-25; A9270; G0378; J0696; J7030; P9612

== ENCOUNTER 2020-12-05 11:12 | Emergency (ER) | payer OTHER ==
[~2020-12-05] VITALS: Ht 172.7 cm; Wt 54.4 kg
[~2020-12-05 11:12] MED LIST changes: +ATOR40TA PO; +CARV6.25 PO; +CELE200 PO; +LEVE500 PO; +PREG100 PO
[2020-12-05 11:46] LABS: BASOPHILS ABSOLUTE AUTO 0.06 K/mm3 (0.00-0.23); BASOPHILS PERCENT AUTO 1 % (0-2); EOSINOPHILS ABSOLUTE AUTO 0.21 K/mm3 (0.00-0.68); EOSINOPHILS PERCENT AUTO 4 % (0-6); IMMATURE GRAN ABSOLUTE AUTO 0.01 K/mm3 (0.00-0.10); IMMATURE GRAN PERCENT AUTO 0 % (0-1); LYMPHOCYTES ABSOLUTE AUTO 1.84 K/mm3 (0.84-5.20); LYMPHOCYTES PERCENT AUTO 32 % (21-46); MONOCYTES ABSOLUTE AUTO 0.44 K/mm3 (0.16-1.47); MONOCYTES PERCENT AUTO 8 % (4-13); Mean Corpuscular HGB 32.2 pg (26.0-34.0); Mean Corpuscular HGB Conc 32.5 g/dL (31.5-36.5); Mean Corpuscular Volume 99 fL (80-100); Mean Platelet Volume 10.5 fL (9.1-12.4); NEUTROPHILS ABSOLUTE AUTO 3.19 K/mm3 (1.96-9.15); NEUTROPHILS PERCENT AUTO 55 % (41-73); Platelet Count 167 K/mm3 (150-400); RDW Coefficient Variation 11.1 % (11.7-14.2); RDW Standard Deviation 40.5 fL (35.1-46.3); Red Blood Cell Count 4.04 M/mm3 (3.80-5.20); White Blood Cell Count 5.75 K/mm3 (4.00-11.30)
[2020-12-05 12:06] LABS: Alanine Aminotransfer (ALT/SGP 21 U/L (12-78); Albumin, Blood 3.8 g/dL (3.4-5.0); Alk Phos 109 U/L (50-136); Anion Gap 5 mmol/L (6-16); Aspartate Aminotrans (AST/SGOT 20 U/L (12-37); Bilirubin, Total 0.7 mg/dL (0.1-1.0); Blood Urea Nitrogen 15 mg/dL (8-24); Bun/Creatinine Ratio 35.8 (12.0-20.0); CO2, Blood 27 mmol/L (21-32); Calcium, Blood 9.4 mg/dL (8.5-10.1); Chloride, Blood 108 mmol/L (98-108); Creatinine, Blood 0.42 mg/dL (0.40-1.00); Globulin, Blood 3.7 g/dL (2.2-4.0); Glomerular Filtration Rate >60 (60-); Glucose, Blood 100 mg/dL (70-99); Potassium, Blood 4.2 mmol/L (3.5-5.5); Sodium, Blood 140 mmol/L (136-145); Total Protein, Blood 7.5 g/dL (6.4-8.2); Troponin I <0.015 ng/mL (0.000-0.040)
[2020-12-05] MEDS ORDERED: ONDA4ODT MM (13:06)
[2020-12-05] MEDS ORDERED: MECL25 PO (13:06)
== END 2020-12-05 15:05 | disposition home or self-care (01) ==
LOC: ER 11:12
PROVIDERS: Emergency Medicine
DX: R42 Dizziness and giddiness (principal); I10 Essential (primary) hypertension; E78.5 Hyperlipidemia, unspecified; I25.2 Old myocardial infarction; Z88.5 Allergy status to narcotic agent; Z88.0 Allergy status to penicillin; Z88.1 Allergy status to other antibiotic agents; Z79.899 Other long term (current) drug therapy; Z79.82 Long term (current) use of aspirin; Z86.73 Personal history of transient ischemic attack (TIA), and cerebral infarction without residual deficits
CPT/HCPCS: 70450; 80053; 82947; 84484; 85025; 93005; 93010; 96374; 99284-25; A9270; J2405

== ENCOUNTER 2021-01-23 06:14 | Day surgery (SDC) | payer OTHER ==
[~2021-01-23] VITALS: Ht 172.7 cm; Wt 56.0 kg
[~2021-01-23 06:14] MED LIST changes: +MECL25 PO
[2021-01-23] MEDS ORDERED: Acetaminophen325 M1 PO (07:11)
[2021-01-23] MEDS ORDERED: CODACE30 PO (07:13)
[2021-01-23] MEDS ORDERED: ACETAMINOP160 MG/51 PO (07:14)
--- NOTE | 2021-01-23 08:15 | NUR ---
PT AND S/O VERBALIZES UNDERSTANDING WRITTEN AND VERBAL INSTRUCTIONS. DENIES QUESTIONS. PT DC TO HOME VIA WC BY S/O.
== END 2021-01-23 08:16 | disposition home or self-care (01) ==
LOC: MHTC 06:14
DX: R55 Syncope and collapse (principal)
CPT/HCPCS: 33285; C1764

== ENCOUNTER 2021-05-06 15:33 | Inpatient (IN) | payer OTHER ==
[~2021-05-06] VITALS: Ht 172.7 cm; Wt 53.8 kg
[~2021-05-06 15:33] MED LIST changes: +ACETAMINOP160 MG/51 PO; +Acetaminophen325 M1 PO; -CARV6.25 PO; +CODACE30 PO; +Carvedilol12.5 MG PO; +KEPPRA100 MG/1 M PO; -LEVE500 PO; -PREG100 PO; +PREG200 PO
[2021-05-06] MEDS ORDERED: VITAMIN D325 MC3 PO (15:53)
[2021-05-06] MEDS ORDERED: TIZA4 PO (15:54)
[2021-05-06] MEDS ORDERED: DULO30 PO (15:56)
[2021-05-06] MEDS ORDERED: B-100 COMPLEX100 MG PO (16:00)
[2021-05-06] MEDS ORDERED: OXYC5 PO (16:02)
[2021-05-06 16:21] LABS: BASOPHILS ABSOLUTE AUTO 0.08 K/mm3 (0.00-0.23); BASOPHILS PERCENT AUTO 1 % (0-2); EOSINOPHILS ABSOLUTE AUTO 0.18 K/mm3 (0.00-0.68); EOSINOPHILS PERCENT AUTO 3 % (0-6); Hematocrit 41.8 % (33.0-51.0); Hemoglobin 13.7 g/dL (11.5-16.0); IMMATURE GRAN ABSOLUTE AUTO 0.01 K/mm3 (0.00-0.10); IMMATURE GRAN PERCENT AUTO 0 % (0-1); LYMPHOCYTES ABSOLUTE AUTO 1.99 K/mm3 (0.84-5.20); LYMPHOCYTES PERCENT AUTO 34 % (21-46); MONOCYTES PERCENT AUTO 7 % (4-13); Mean Corpuscular HGB 31.6 pg (26.0-34.0); Mean Corpuscular HGB Conc 32.8 g/dL (31.5-36.5); Mean Corpuscular Volume 97 fL (80-100); Mean Platelet Volume 11.1 fL (9.1-12.4); NEUTROPHILS ABSOLUTE AUTO 3.22 K/mm3 (1.96-9.15); NEUTROPHILS PERCENT AUTO 55 % (41-73); Platelet Count 110 K/mm3 (150-400); RDW Coefficient Variation 12.1 % (11.7-14.2); RDW Standard Deviation 43.7 fL (35.1-46.3); Red Blood Cell Count 4.33 M/mm3 (3.80-5.20); White Blood Cell Count 5.88 K/mm3 (4.00-11.30)
[2021-05-06 16:35] LABS: Alanine Aminotransfer (ALT/SGP 24 U/L (12-78); Albumin, Blood 3.6 g/dL (3.4-5.0); Albumin/Globulin Ratio 1.1 (0.8-1.8); Alk Phos 89 U/L (50-136); Anion Gap 3 mmol/L (6-16); Aspartate Aminotrans (AST/SGOT 30 U/L (12-37); Bilirubin, Total 0.7 mg/dL (0.1-1.0); Blood Urea Nitrogen 7 mg/dL (8-24); Bun/Creatinine Ratio 15.9 (12.0-20.0); CO2, Blood 27 mmol/L (21-32); Calcium, Blood 8.8 mg/dL (8.5-10.1); Chloride, Blood 106 mmol/L (98-108); Creatinine, Blood 0.44 mg/dL (0.40-1.00); Globulin, Blood 3.2 g/dL (2.2-4.0); Glomerular Filtration Rate >60 (60-); Glucose, Blood 106 mg/dL (70-99); Potassium, Blood 4.6 mmol/L (3.5-5.5); Sodium, Blood 136 mmol/L (136-145); Total Protein, Blood 6.8 g/dL (6.4-8.2)
[2021-05-06 17:07] LABS: Base Excess Venous 1.6 mmol/L; Bicarbonate Venous 25.1 mmol/L (24.0-30.0); PCO2 Venous 48.3 mmHg (38-42); PO2 Venous 74.8 mmHg (38-42); pH Blood Venous 7.36 (7.34-7.37)
[2021-05-06 17:50] LABS: Source, Urine Clean Catch
[2021-05-06 17:54] LABS: Influenza A, PCR NEGATIVE (NEGATIVE); Influenza B, PCR NEGATIVE (NEGATIVE); Resp Syncytial Virus, PCR NEGATIVE (NEGATIVE); SARS-Cov-2 (COVID-19) PCR, MMC NEGATIVE (NEGATIVE)
[2021-05-06 18:10] LABS: Appearance, Urine Turbid (Clear); Bilirubin, Urine Neg (Neg); Blood, Urine 3+ (Neg); Color, Urine Yellow (P-Yellow); Glucose Qualitative, Urine Neg (Neg); Ketones, Urine Neg (Neg); Leukocyte Esterase, Urine 3+ (Neg); Nitrite, Urine Pos (Neg); Protein, Urine 2+ (Neg); Specific Gravity, Urine 1.015 (1.003-1.022); Urobilinogen, Urine 1+ (Normal)
[2021-05-06 18:33] LABS: White Blood Cells, Urine TNTC /hpf (0-5)
[2021-05-06 18:35] LABS: Bacteria Many /hpf; Squamous Epithelial Cells Rare /hpf (Few)
[2021-05-06 18:36] LABS: Amorphous Heavy (0-Heavy)
[2021-05-06 19:01] LABS: U Amphetamine Screen Not Detected; U Barbituate Screen Not Detected; U Benzodiazapine Screen Not Detected; U Buprenorphine Screen Not Detected; U Cannabinoids Screen Not Detected; U Cocaine Screen Not Detected; U Methadone Screen Not Detected; U Methamphetamine Screen Not Detected; U Opiates Screen Not Detected; U Oxycodone Screen DETECTED; U Phencyclidine Screen Not Detected; U Propoxyphene Screen Not Detected
[2021-05-07 05:11] LABS: BASOPHILS ABSOLUTE AUTO 0.07 K/mm3 (0.00-0.23); BASOPHILS PERCENT AUTO 1 % (0-2); EOSINOPHILS ABSOLUTE AUTO 0.05 K/mm3 (0.00-0.68); EOSINOPHILS PERCENT AUTO 1 % (0-6); Hematocrit 39.4 % (33.0-51.0); IMMATURE GRAN ABSOLUTE AUTO 0.02 K/mm3 (0.00-0.10); IMMATURE GRAN PERCENT AUTO 0 % (0-1); LYMPHOCYTES ABSOLUTE AUTO 1.34 K/mm3 (0.84-5.20); LYMPHOCYTES PERCENT AUTO 16 % (21-46); MONOCYTES ABSOLUTE AUTO 0.47 K/mm3 (0.16-1.47); MONOCYTES PERCENT AUTO 6 % (4-13); Mean Corpuscular HGB 31.1 pg (26.0-34.0); Mean Corpuscular Volume 94 fL (80-100); NEUTROPHILS ABSOLUTE AUTO 6.48 K/mm3 (1.96-9.15); NEUTROPHILS PERCENT AUTO 77 % (41-73); Platelet Count 142 K/mm3 (150-400); RDW Coefficient Variation 12.1 % (11.7-14.2); RDW Standard Deviation 42.5 fL (35.1-46.3); Red Blood Cell Count 4.18 M/mm3 (3.80-5.20); White Blood Cell Count 8.43 K/mm3 (4.00-11.30)
--- NOTE | 2021-05-07 05:57 | NUR ---
PM SHIFT SUMMARY PATIENT COMES TO US WITH DECREASED COMMUNICATION, CHATTERING TEETH, HEAD TILT TO LEFT AND JERKING MOVEMENTS OF LEFT SIDE OF BODY. HAS HISTORY OF SEIZURES AND CVA IN THE PAST. IT IS BELIEVED THAT THE ACUTE ENCEPHALOPATHY IS DUE TO TO SEPTIS UTI. HAS A SERRA CATHETER IN PLACE THAT IS WORKING PROPERLY. LACTIC ACID IS DOWN INTO NORMAL RANGE FROM 2.1 TO 1.7 . COVID NEGATIVE. ALL TESTS AT THIS POINT SHOW NOTHING ACUTE. SHE STARTED TO ACT MORE CONFUSED AROUND 3:30AM, CALLING OUT PEOPLE'S NAMES TO COME SEE HER, TURN THE FURNACE ON AND GET THINGS FOR HER THAT WERE NOT IN THE ROOM. HER IS HER CAREGIVER. PER DOCTOR PROGRESS NOTES, AN MRI HEAD MAY BE ORDERED IF HER CONDITION IS NOT IMPROVED.
[2021-05-07 05:58] LABS: Alanine Aminotransfer (ALT/SGP 20 U/L (12-78); Albumin, Blood 3.4 g/dL (3.4-5.0); Albumin/Globulin Ratio 1.1 (0.8-1.8); Alk Phos 86 U/L (50-136); Anion Gap 10 mmol/L (6-16); Aspartate Aminotrans (AST/SGOT 18 U/L (12-37); Bilirubin, Total 0.9 mg/dL (0.1-1.0); Blood Urea Nitrogen 7 mg/dL (8-24); Bun/Creatinine Ratio 13.1 (12.0-20.0); CO2, Blood 22 mmol/L (21-32); Calcium, Blood 8.8 mg/dL (8.5-10.1); Chloride, Blood 108 mmol/L (98-108); Creatinine, Blood 0.53 mg/dL (0.40-1.00); Glomerular Filtration Rate >60 (60-); Glucose, Blood 103 mg/dL (70-99); Potassium, Blood 3.5 mmol/L (3.5-5.5); Sodium, Blood 140 mmol/L (136-145); Total Protein, Blood 6.4 g/dL (6.4-8.2)
--- NOTE | 2021-05-07 17:54 | NUR ---
pATIENT IS AWAKE,ALERT AND ORIENTED WITH EPISODE CONFUSION. PATIENT DIET WAS CHANGE TO MECHANICAL SOFT DIET,PATIENT TOLERATE DIET VERY WELL. DENIES PAIN. SERRA INTACT DRAINING CLEAR YELLOW URINE.
[2021-05-07] MEDS ORDERED: Levetirace100 MG/1 M PO (20:21)
[2021-05-07] MEDS ORDERED: FOLI1 PO (20:27)
[2021-05-07] MEDS ORDERED: B-1100 M1 PO (20:28)
[2021-05-07] MEDS ORDERED: MECL25 PO (20:28)
--- NOTE | 2021-05-08 05:51 | NUR ---
PM SHIFT SUMMARY PATIENT IS MUCH LESS CONFUSED THAN THE PREVIOUS SHIFT. SHE WAS NOT CALLING OUT FOR FAMILY DURING THE SHIFT AND IS AWARE OF HER SURROUNDINGS. SHE VERBALIZED THAT SHE FELT BETTER TODAY. HER DIET WAS CHANGED TO A 2G LOW SODIUM PLAN. WE ARE AWAITING CULTURE RESULTS. SERRA IS IN PLACE AND PATENT. NO NEW COMPLAINTS AT THIS TIME.
[2021-05-08 07:13] LABS: BASOPHILS ABSOLUTE AUTO 0.04 K/mm3 (0.00-0.23); BASOPHILS PERCENT AUTO 1 % (0-2); EOSINOPHILS ABSOLUTE AUTO 0.04 K/mm3 (0.00-0.68); EOSINOPHILS PERCENT AUTO 1 % (0-6); Hematocrit 36.4 % (33.0-51.0); Hemoglobin 12.4 g/dL (11.5-16.0); IMMATURE GRAN ABSOLUTE AUTO 0.01 K/mm3 (0.00-0.10); IMMATURE GRAN PERCENT AUTO 0 % (0-1); LYMPHOCYTES ABSOLUTE AUTO 1.21 K/mm3 (0.84-5.20); LYMPHOCYTES PERCENT AUTO 22 % (21-46); MONOCYTES ABSOLUTE AUTO 0.54 K/mm3 (0.16-1.47); MONOCYTES PERCENT AUTO 10 % (4-13); Mean Corpuscular HGB 31.2 pg (26.0-34.0); Mean Corpuscular HGB Conc 34.1 g/dL (31.5-36.5); Mean Corpuscular Volume 92 fL (80-100); Mean Platelet Volume 10.9 fL (9.1-12.4); NEUTROPHILS PERCENT AUTO 67 % (41-73); Platelet Count 146 K/mm3 (150-400); RDW Coefficient Variation 12.4 % (11.7-14.2); RDW Standard Deviation 41.4 fL (35.1-46.3); Red Blood Cell Count 3.98 M/mm3 (3.80-5.20); White Blood Cell Count 5.64 K/mm3 (4.00-11.30)
[2021-05-08 07:26] LABS: Vancomycin, Trough 14.8 ug/mL (5.0-10.0)
[2021-05-08 07:35] LABS: Anion Gap 7 mmol/L (6-16); Blood Urea Nitrogen 5 mg/dL (8-24); Bun/Creatinine Ratio 11.8 (12.0-20.0); CO2, Blood 25 mmol/L (21-32); Calcium, Blood 8.9 mg/dL (8.5-10.1); Chloride, Blood 106 mmol/L (98-108); Creatinine, Blood 0.42 mg/dL (0.40-1.00); Glomerular Filtration Rate >60 (60-); Glucose, Blood 109 mg/dL (70-99); Potassium, Blood 3.3 mmol/L (3.5-5.5); Sodium, Blood 138 mmol/L (136-145)
--- NOTE | 2021-05-08 17:31 | NUR ---
PATIENT IS AWAKE,ALERT AND ORIENTED WITH EPISODE OF CONFUSION. SERRA REMOVED AT 5PM PER MD ORDER. PATIENT UPDATED ON PEDRO OF CARE. PATIENT REQUEST TYLENOL FOR PAIN, NEW ORDER RECIVED FROM [facility] ( SEE MAR).
--- NOTE | 2021-05-09 05:53 | NUR ---
SHIFT SUMMARY PT IS A 65 Y/O FEMALE, ADMITTED FOR ACUTE ENCEPHALOPATHY. SHE IS A&O X 2, BEDREST. PONCE DC'D ON DAY SHIFT, PT INCONTINENT. VITAL SIGNS STABLE. NO C/O ACUTE PAIN, NAUSEA OR SOB. PT SLEPT WELL THROUGH THE NIGHT. NO ACUTE CHANGES IN PT CONDITION NOTED DURING THE NIGHT. WILL CONTINUE TO MONITOR AND TREAT PER EMAR UNTIL HAND OFF TO DAY SHIFT RN.
[2021-05-09] MEDS ORDERED: LACT PO (11:41)
[2021-05-09] MEDS ORDERED: AMOCLA500 PO (11:41)
--- NOTE | 2021-05-09 15:39 | NUR ---
REVIEWED D'C INSTRUCTIONS WITH, YAAKOV Phillips, ON PHONE AND WHEN HE ARRIVED TO OPHTHALMIC TECHNICIAN APPRENTICE PATIENT. AWARE TO MAKE F/U APPT AND 2 MEDS AT [facility]. AWARE CAN RETURN IF ANY PROBLEMS OR CONCERNS. REVIEWED ALL MEDS THAT WERE DISCONTINUED AND HIGHLIGHTED THEM ON D'C INSTRUCTIONS. AWARE CAN ASK PCP IF HE WANTS TO RESTART THEM. ADVISED MANY OF THEM CAN CAUSE CONFUSION/WEAKNESS. ANSWER ALL QUESTIONS. VERBALIZES UNDERSTANDING.
== END 2021-05-09 15:54 | disposition home or self-care (01) | DRG 101 ==
LOC: ER 15:33 → MEDS 18:33 → ER 19:08 → MEDS 20:36
PROVIDERS: Emergency Medicine; Internal Medicine; ADMIT Internal Medicine
DX: G40.909 Epilepsy, unspecified, not intractable, without status epilepticus (principal); N39.0 Urinary tract infection, site not specified; I69.354 Hemiplegia and hemiparesis following cerebral infarction affecting left non-dominant side; E87.2 Acidosis; E87.6 Hypokalemia; Z20.822 Contact with and (suspected) exposure to COVID-19; B96.1 Klebsiella pneumoniae [K. pneumoniae] as the cause of diseases classified elsewhere; Z23 Encounter for immunization; I25.2 Old myocardial infarction; I10 Essential (primary) hypertension; E78.5 Hyperlipidemia, unspecified; Z79.82 Long term (current) use of aspirin; Z87.820 Personal history of traumatic brain injury; Z90.49 Acquired absence of other specified parts of digestive tract; Z98.51 Tubal ligation status; Z98.891 History of uterine scar from previous surgery; Z88.0 Allergy status to penicillin; Z88.5 Allergy status to narcotic agent; Z88.1 Allergy status to other antibiotic agents; Z79.899 Other long term (current) drug therapy; Z98.890 Other specified postprocedural states
CPT/HCPCS: 0241U; 36415; 51702; 70450; 71045; 80048; 80053; 80177; 80202; 81001; 82803; 83605; 83735; 84443; 85025; 87077; 87086; 87186; 90686; 93005; 93010; 96365-59; 96367-59; 96375-59; 99285-25; A9270; G0008; J0696; J1650; J1953; J2060; J3370; J7030; J7050

== ENCOUNTER → 2021-07-09 | Outpatient (CLI) | payer OTHER ==
[~2021-07-09] MED LIST changes: +AMOCLA500 PO; +B-100 COMPLEX100 MG PO; +DULO30 PO; +LACT PO; +Levetirace100 MG/1 M PO; +OXYC5 PO; +TIZA4 PO; +VITAMIN D325 MC3 PO
[2021-07-09 10:20] LABS: Source, Urine Clean Catch
[2021-07-09 11:40] LABS: Appearance, Urine Hazy (Clear); Bilirubin, Urine Neg (Neg); Blood, Urine 2+ (Neg); Color, Urine Yellow (P-Yellow); Glucose Qualitative, Urine Neg (Neg); Ketones, Urine Neg (Neg); Leukocyte Esterase, Urine 3+ (Neg); Nitrite, Urine Neg (Neg); Protein, Urine 1+ (Neg); Urobilinogen, Urine NORM (Normal)
[2021-07-09 11:55] LABS: White Blood Cells, Urine TNTC /hpf (0-5)
[2021-07-09 11:56] LABS: Bacteria Many /hpf; Squamous Epithelial Cells Few /hpf (Few); Transitional Epithelial Cells Few /hpf (0-Rare)
== END | disposition home or self-care (01) ==
LOC: RAD SHORT 10:17
PROVIDERS: Nurse Practitioner Family
DX: N39.0 Urinary tract infection, site not specified (principal)
CPT/HCPCS: 81001; 87077; 87086; 87186

== ENCOUNTER → 2021-10-20 | Outpatient (CLI) | payer OTHER ==
[2021-10-20 07:30] LABS: Source, Urine Voided
[2021-10-20 09:36] LABS: Appearance, Urine Cloudy (Clear); Bilirubin, Urine Neg (Neg); Blood, Urine 2+ (Neg); Color, Urine Yellow (P-Yellow); Glucose Qualitative, Urine Neg (Neg); Ketones, Urine Neg (Neg); Leukocyte Esterase, Urine 3+ (Neg); Nitrite, Urine Pos (Neg); Protein, Urine 2+ (Neg); Urobilinogen, Urine NORM (Normal)
[2021-10-20 09:44] LABS: White Blood Cells, Urine TNTC /hpf (0-5)
[2021-10-20 09:45] LABS: Bacteria Many /hpf; Squamous Epithelial Cells Rare /hpf (Few)
== END | disposition home or self-care (01) ==
LOC: LAB SHORT 07:27
PROVIDERS: Nurse Practitioner Family
DX: N39.0 Urinary tract infection, site not specified (principal); B96.20 Unspecified Escherichia coli [E. coli] as the cause of diseases classified elsewhere
CPT/HCPCS: 81001; 87077; 87086; 87186

== ENCOUNTER 2022-03-22 13:03 | Emergency (ER) | payer OTHER ==
[~2022-03-22] VITALS: Ht 175.3 cm; Wt 77.1 kg
[~2022-03-22 13:03] MED LIST changes: +ATOR10; +CEPH500 PO
[2022-03-22 13:40] LABS: BASOPHILS ABSOLUTE AUTO 0.09 K/mm3 (0.00-0.23); BASOPHILS PERCENT AUTO 1 % (0-2); EOSINOPHILS ABSOLUTE AUTO 0.06 K/mm3 (0.00-0.68); EOSINOPHILS PERCENT AUTO 1 % (0-6); Hematocrit 39.2 % (33.0-51.0); Hemoglobin 13.7 g/dL (11.5-16.0); IMMATURE GRAN ABSOLUTE AUTO 0.02 K/mm3 (0.00-0.10); IMMATURE GRAN PERCENT AUTO 0 % (0-1); LYMPHOCYTES ABSOLUTE AUTO 1.14 K/mm3 (0.84-5.20); LYMPHOCYTES PERCENT AUTO 14 % (21-46); MONOCYTES PERCENT AUTO 5 % (4-13); Mean Corpuscular HGB 34.3 pg (26.0-34.0); Mean Corpuscular HGB Conc 34.9 g/dL (31.5-36.5); Mean Corpuscular Volume 98 fL (80-100); Mean Platelet Volume 10.1 fL (9.1-12.4); NEUTROPHILS ABSOLUTE AUTO 6.36 K/mm3 (1.96-9.15); NEUTROPHILS PERCENT AUTO 79 % (41-73); Platelet Count 221 K/mm3 (150-400); RDW Standard Deviation 46.8 fL (35.1-46.3); White Blood Cell Count 8.07 K/mm3 (4.00-11.30)
[2022-03-22 14:04] LABS: Albumin, Blood 3.9 g/dL (3.4-5.0); Albumin/Globulin Ratio 1.1 (0.8-1.8); Bun/Creatinine Ratio 28.5 (12.0-20.0); Calcium, Blood 9.1 mg/dL (8.5-10.1); Creatinine, Blood 0.46 mg/dL (0.40-1.00); Globulin, Blood 3.4 g/dL (2.2-4.0); Potassium, Blood 3.8 mmol/L (3.5-5.5); Total Protein, Blood 7.3 g/dL (6.4-8.2)
[2022-03-22 16:29] LABS: Influenza A, PCR NEGATIVE (NEGATIVE); Influenza B, PCR NEGATIVE (NEGATIVE); Resp Syncytial Virus, PCR NEGATIVE (NEGATIVE); SARS-Cov-2 (COVID-19) PCR, MMC NEGATIVE (NEGATIVE)
[2022-03-22 16:32] LABS: Source, Urine Straight Cath
[2022-03-22 16:48] LABS: Appearance, Urine Cloudy (Clear); Bilirubin, Urine Neg (Neg); Blood, Urine 4+ (Neg); Color, Urine Yellow (P-Yellow); Glucose Qualitative, Urine 1+ (Neg); Ketones, Urine Neg (Neg); Leukocyte Esterase, Urine 3+ (Neg); Nitrite, Urine Pos (Neg); Protein, Urine 2+ (Neg); Specific Gravity, Urine 1.025 (1.003-1.022); Urobilinogen, Urine NORM (Normal)
[2022-03-22 17:01] LABS: White Blood Cells, Urine TNTC /hpf (0-5)
[2022-03-22 17:04] LABS: Bacteria Many /hpf; Squamous Epithelial Cells Rare /hpf (Few)
[2022-03-22] MEDS ORDERED: ONDA4ODT MM (20:05)
[2022-03-22] MEDS ORDERED: CEPH500 PO (20:05)
== END 2022-03-22 20:50 | disposition home or self-care (01) ==
LOC: ER 13:03
PROVIDERS: Emergency Medicine; Student in an Organized Health Care Education/Training Program
DX: G40.909 Epilepsy, unspecified, not intractable, without status epilepticus (principal); N39.0 Urinary tract infection, site not specified; I25.2 Old myocardial infarction; I10 Essential (primary) hypertension; E78.5 Hyperlipidemia, unspecified; Z88.0 Allergy status to penicillin; Z88.5 Allergy status to narcotic agent; Z79.899 Other long term (current) drug therapy; Z79.82 Long term (current) use of aspirin; Z86.73 Personal history of transient ischemic attack (TIA), and cerebral infarction without residual deficits; Z20.822 Contact with and (suspected) exposure to COVID-19
CPT/HCPCS: 0241U; 51701; 80053; 81001; 82947; 85025; 93005; 93010; J0696; J1953; J2060; J2405

== ENCOUNTER 2022-07-06 17:19 | Emergency (ER) | payer OTHER ==
[~2022-07-06] VITALS: Ht 175.3 cm; Wt 56.7 kg
[~2022-07-06 17:19] MED LIST changes: +CEFP200 PO
[2022-07-06 20:50] VITALS: BP 150/91
== END 2022-07-06 21:40 | disposition home or self-care (01) ==
LOC: ER 17:19
DX: I69.954 Hemiplegia and hemiparesis following unspecified cerebrovascular disease affecting left non-dominant side (principal); M25.522 Pain in left elbow; I25.2 Old myocardial infarction; E78.5 Hyperlipidemia, unspecified; I10 Essential (primary) hypertension; W01.198A Fall on same level from slipping, tripping and stumbling with subsequent striking against other object, initial encounter; Z79.899 Other long term (current) drug therapy; Z79.82 Long term (current) use of aspirin; Z88.5 Allergy status to narcotic agent; Z88.0 Allergy status to penicillin; Z87.891 Personal history of nicotine dependence
CPT/HCPCS: 99283

== ENCOUNTER 2022-07-19 18:53 | Emergency (ER) | payer OTHER ==
[~2022-07-19] VITALS: Ht 175.3 cm; Wt 56.7 kg
[2022-07-19 19:36] LABS: BASOPHILS ABSOLUTE AUTO 0.04 K/mm3 (0.00-0.23); BASOPHILS PERCENT AUTO 0 % (0-2); EOSINOPHILS ABSOLUTE AUTO 0.02 K/mm3 (0.00-0.68); EOSINOPHILS PERCENT AUTO 0 % (0-6); Hematocrit 42.7 % (33.0-51.0); Hemoglobin 15.9 g/dL (11.5-16.0); IMMATURE GRAN ABSOLUTE AUTO 0.03 K/mm3 (0.00-0.10); IMMATURE GRAN PERCENT AUTO 0 % (0-1); LYMPHOCYTES ABSOLUTE AUTO 1.43 K/mm3 (0.84-5.20); LYMPHOCYTES PERCENT AUTO 12 % (21-46); MONOCYTES ABSOLUTE AUTO 0.32 K/mm3 (0.16-1.47); MONOCYTES PERCENT AUTO 3 % (4-13); Mean Corpuscular HGB 35.3 pg (26.0-34.0); Mean Corpuscular HGB Conc 37.2 g/dL (31.5-36.5); Mean Corpuscular Volume 95 fL (80-100); Mean Platelet Volume 10.7 fL (9.1-12.4); NEUTROPHILS ABSOLUTE AUTO 9.89 K/mm3 (1.96-9.15); NEUTROPHILS PERCENT AUTO 84 % (41-73); NRBC ABSOLUTE 0.02 K/mm3 (0.00-0.02); NRBC Auto 0.2 /100 WBC (0.0-0.2); Platelet Count 152 K/mm3 (150-400); RDW Coefficient Variation 12.6 % (11.7-14.2); Red Blood Cell Count 4.51 M/mm3 (3.80-5.20); White Blood Cell Count 11.73 K/mm3 (4.00-11.30)
[2022-07-19 19:59] LABS: Alanine Aminotransfer (ALT/SGP 18 U/L (12-78); Albumin, Blood 3.6 g/dL (3.4-5.0); Alk Phos 135 U/L (50-136); Anion Gap 8 mmol/L (6-16); Aspartate Aminotrans (AST/SGOT 32 U/L (12-37); Bilirubin, Total 1.9 mg/dL (0.1-1.0); Blood Urea Nitrogen 13 mg/dL (8-24); CO2, Blood 24 mmol/L (21-32); Chloride, Blood 104 mmol/L (98-108); Creatinine, Blood 0.46 mg/dL (0.40-1.00); Globulin, Blood 3.6 g/dL (2.2-4.0); Glomerular Filtration Rate 106 (60-); Glucose, Blood 161 mg/dL (70-99); Potassium, Blood 3.4 mmol/L (3.5-5.5); Sodium, Blood 136 mmol/L (136-145); Total Protein, Blood 7.2 g/dL (6.4-8.2)
[2022-07-19 21:16] LABS: Ethanol (Alcohol), Blood, Med <3 mg/dL
[2022-07-19 21:57] LABS: Source, Urine Straight Cath
[2022-07-19 22:00] LABS: Blood, Urine 2+ (Neg); Glucose Qualitative, Urine 1+ (Neg); Ketones, Urine 4+ (Neg); Leukocyte Esterase, Urine 1+ (Neg); Nitrite, Urine Neg (Neg); Protein, Urine 3+ (Neg); Specific Gravity, Urine 1.015 (1.003-1.022); Urobilinogen, Urine 1+ (Normal)
[2022-07-19 22:13] LABS: Appearance, Urine Hazy (Clear); Bilirubin, Urine 2+ (Neg); Color, Urine Amber (P-Yellow)
[2022-07-19 22:14] LABS: Amorphous Light (0-Heavy); Bacteria Few /hpf; Mucus Light (0-Heavy); Red Blood Cells, Urine 0-2 /hpf (0-2); Renal Epithelial Few /hpf (0-Rare); Squamous Epithelial Cells Rare /hpf (Few); White Blood Cells, Urine 0-2 /hpf (0-5)
[2022-07-19] MEDS ORDERED: ONDA4 PO (22:58)
[2022-07-20] VITALS: BP 150/84
== END 2022-07-20 00:20 | disposition home or self-care (01) ==
LOC: ER 18:53
PROVIDERS: Emergency Medicine; Student in an Organized Health Care Education/Training Program
DX: R41.82 Altered mental status, unspecified (principal); R11.2 Nausea with vomiting, unspecified; E86.0 Dehydration; Z87.891 Personal history of nicotine dependence; Z88.0 Allergy status to penicillin; Z88.5 Allergy status to narcotic agent; Z79.899 Other long term (current) drug therapy; Z79.82 Long term (current) use of aspirin
CPT/HCPCS: 36415; 80053; 81001; 83605; 83690; 85025; 96360; 96361; 99284-25; A9270; G0480; J7030; P9612

== ENCOUNTER 2022-07-23 12:28 | Inpatient (IN) | payer OTHER ==
[~2022-07-23] VITALS: Ht 175.3 cm; Wt 70.0 kg
[~2022-07-23 12:28] MED LIST changes: -ATOR10; +ONDA4 PO
[2022-07-23 14:22] LABS: BASOPHILS ABSOLUTE AUTO 0.06 K/mm3 (0.00-0.23); BASOPHILS PERCENT AUTO 1 % (0-2); EOSINOPHILS ABSOLUTE AUTO 0.21 K/mm3 (0.00-0.68); EOSINOPHILS PERCENT AUTO 3 % (0-6); Hematocrit 34.1 % (33.0-51.0); IMMATURE GRAN ABSOLUTE AUTO 0.04 K/mm3 (0.00-0.10); IMMATURE GRAN PERCENT AUTO 1 % (0-1); LYMPHOCYTES ABSOLUTE AUTO 2.53 K/mm3 (0.84-5.20); LYMPHOCYTES PERCENT AUTO 34 % (21-46); MONOCYTES ABSOLUTE AUTO 0.65 K/mm3 (0.16-1.47); MONOCYTES PERCENT AUTO 9 % (4-13); Mean Corpuscular HGB 35.4 pg (26.0-34.0); Mean Corpuscular HGB Conc 35.2 g/dL (31.5-36.5); Mean Corpuscular Volume 101 fL (80-100); Mean Platelet Volume 11.2 fL (9.1-12.4); NEUTROPHILS PERCENT AUTO 53 % (41-73); Platelet Count 100 K/mm3 (150-400); RDW Standard Deviation 46.9 fL (35.1-46.3); Red Blood Cell Count 3.39 M/mm3 (3.80-5.20); White Blood Cell Count 7.39 K/mm3 (4.00-11.30)
[2022-07-23 14:39] LABS: Albumin, Blood 3.2 g/dL (3.4-5.0); Albumin/Globulin Ratio 1.1 (0.8-1.8); Bilirubin, Total 0.6 mg/dL (0.1-1.0); Bun/Creatinine Ratio 24.6 (12.0-20.0); Calcium, Blood 8.7 mg/dL (8.5-10.1); Creatinine, Blood 0.49 mg/dL (0.40-1.00); Total Protein, Blood 6.2 g/dL (6.4-8.2)
[2022-07-23 16:43] LABS: Source, Urine Clean Catch
[2022-07-23 16:46] LABS: Appearance, Urine Hazy (Clear); Bilirubin, Urine Neg (Neg); Blood, Urine 2+ (Neg); Color, Urine Yellow (P-Yellow); Glucose Qualitative, Urine Neg (Neg); Ketones, Urine Neg (Neg); Leukocyte Esterase, Urine 3+ (Neg); Nitrite, Urine Neg (Neg); Protein, Urine 2+ (Neg); Urobilinogen, Urine NORM (Normal)
[2022-07-23 17:05] LABS: Bacteria Many /hpf; Squamous Epithelial Cells Mod /hpf (Few); Transitional Epithelial Cells Rare /hpf (0-Rare); White Blood Cells, Urine 50-100 /hpf (0-5)
[2022-07-23 17:06] LABS: Hyaline Casts 0-2 /lpf (0-2); WBC Cast 0-2 /lpf (0)
[2022-07-23 20:15] VITALS: BP 116/59
[2022-07-23] MEDS ORDERED: DRAMAMINE25 M3 PO (21:17)
[2022-07-23] MEDS ORDERED: LYRICA225 M1 PO (21:19)
[2022-07-23] MEDS ORDERED: ZANAFLEX413 PO (21:22)
[2022-07-23] MEDS ORDERED: OXYC5 PO (21:23)
[2022-07-24] VITALS (7 sets, daily range): BP systolic 127–153; BP diastolic 73–84
[2022-07-24 05:13] LABS: Hematocrit 33.8 % (33.0-51.0); Hemoglobin 11.6 g/dL (11.5-16.0); Mean Corpuscular HGB 35.2 pg (26.0-34.0); Mean Corpuscular HGB Conc 34.3 g/dL (31.5-36.5); Mean Corpuscular Volume 102 fL (80-100); Mean Platelet Volume 10.7 fL (9.1-12.4); Platelet Count 106 K/mm3 (150-400); RDW Coefficient Variation 13.1 % (11.7-14.2); RDW Standard Deviation 48.1 fL (35.1-46.3); White Blood Cell Count 6.82 K/mm3 (4.00-11.30)
[2022-07-24 05:36] LABS: Bun/Creatinine Ratio 20.5 (12.0-20.0); Calcium, Blood 7.6 mg/dL (8.5-10.1); Creatinine, Blood 0.39 mg/dL (0.40-1.00); Potassium, Blood 3.5 mmol/L (3.5-5.5)
--- NOTE | 2022-07-24 06:28 | NUR ---
SHIFT SUMMARY: PT IS NEW ADMIT IN EVENING OF 07/23/22. A&OX4. WC BOUND AT HOME. TRANSFERED TO BED FROM [facility] VIA SLIDER SHEET. PT ABLE TO MAKE NEEDS KNOWN AND FOLLOW DIRECTIONS. PT REPORTS LEFT SIDED WEAKNESS DUE TO HX OF CVA LAST YEAR. VITAL SIGNS STABLE. HR IS SR. DENIES ANY CHEST PAIN/PRESSURE. O2 SATS > 92% ON 2 LPM WHEN ADMITTED TO UNIT, ABLE TO WEAN OFF OF O2 WHILE MAINTAINING O2 SATS. PT ABLE TO GIVE MINIMAL ASSISTANCE WITH REPOSITIONING DUE TO LEFT SIDED WEAKNESS. NO ACUTE CHANGES NOTED OVERNIGHT. CALL LIGHT IN REACH.
[2022-07-24 16:07] LABS: Vancomycin, Trough 23.9 ug/mL (5.0-10.0)
--- NOTE | 2022-07-24 16:09 | NUR ---
PHONE CALL TO DR ABBASI FOR CRITICAL HIGH VALUE, VANCO TROUGH 23.9. PER DR ABBASI, HOLD VANCO AND WAIT FOR PHARMACY TO GIVE TIMING OF NEXT DOSE.
--- NOTE | 2022-07-24 18:21 | NUR ---
SHIFT SUMMARY OVERALL, AN UNEVENTFUL SHIFT. PT A/O X4, COOPERATIVE WITH CARE. PT PLEASANT BUT WITH A FLAT AFFECT. PT ONLY COMPLAINT THIS SHIFT WAS MILD NAUSEA THAT WAS EASILY TREATED WITH ZOFRAN. PT ABLE TO USE CALL LIGHT APPROPRIATELY. PT WAS AT PT BEDSIDE THIS AFTERNOON. VSS ON RA. PT HAS LEFT SIDED DEFICIT DUE TO PREVIOUS CVA. LUNGS CLEAR T/O. WILL CONTINUE TO CARE FOR PT AND REPORT TO ONCOMING RN. PT CURRENTLY RESTING, RESPIRATIONS EVEN AND UNLABORED. CALL LIGHT IS WITHIN PATIENT'S REACH.
[2022-07-25 04:32] VITALS: BP 152/77
--- NOTE | 2022-07-25 05:14 | NUR ---
SHIFT SUMMARY: NO ACUTE CHANGES NOTED DURING THIS SHIFT. A&OX4. DENIES ANY SOB OR CHEST PAIN. MEDICATED FOR NAUSEA X 1 WITH GOOD RESULTS. NS INFUSING ORDERED, SEE EMAR. CONTINUES TO HAVE LEFT SIDED WEAKNESS IN ARM AND LEG. PT DECLINING TO BE REPOSITIONED Q2H TURNS BUT DOES ALLOW OCCASIONAL SLIGHT MOVEMENT OF HER HIPS AND FEET. VITAL SIGNS STABLE. HR SR IN THE 70'S, O2 SATS > 92% ON RA, AFEBRILE. ABLE TO MAKE NEEDS KNOWN. CALL LIGHT IN REACH.
[2022-07-25 08:00] VITALS: BP 156/83
--- NOTE | 2022-07-25 08:21 | NUR ---
PATIENT LAYING IN BED. STUDENT LIFE DEAN ASSISTED PATIENT WITH A BRIEF CHANGE. UNLABORED RR, PATIENT DENIED SOB. PATIENT LAYING IN BED WITH CALL LIGHT IN REACH, BED IN LOWEST POSTION.
--- NOTE | 2022-07-25 10:58 | NUR ---
DR ABBASI IN TO SEE PT.
[2022-07-25] MEDS ORDERED: VISBIOME 112.51 EACH PO (13:04)
[2022-07-25] MEDS ORDERED: LINE600 PO (13:05)
[2022-07-25 13:08] VITALS: BP 165/85
--- NOTE | 2022-07-25 15:05 | NUR ---
discharged SUPERVISED SN REVIEWING DC INSTRUCTIONS W/PT AND SPOUSE; THEY VERBALIZED UNDERSTANDING. SPOUSE LIFTED PT INTO PERSONAL WC AND THEY LEFT UNIT WITH POSSESSIONS AND DC INSTRUCTIONS CARRIED BY SN TO CAR WAITING OUTSIDE.
--- NOTE | 2022-07-25 15:10 | NUR ---
WENT OVER DISCHARGE PACKET WITH PATIENT AND S/O, PATIENT AND S/O VERBALIZED UNDERSTANDING. S/O ASSISTED PATIENT INTO WHEEL CHAIR. S/O WHEELED THE PATIENT OUT ACCOMPANIED BY STUDENT NURSE. PATIENT HAD ALL HER BELONGINGS WITH HER.
--- NOTE | 2022-07-25 15:23 | NUR ---
REVIEWED SN DOCUMENTATION
== END 2022-07-25 15:00 | disposition home or self-care (01) | DRG 315 ==
LOC: ER 12:28 → PCU 16:44 → UNDODEPER 07-26 12:21
PROVIDERS: Physician Assistant; Student in an Organized Health Care Education/Training Program; ADMIT Internal Medicine
DX: I95.9 Hypotension, unspecified (principal); E87.0 Hyperosmolality and hypernatremia; R78.81 Bacteremia; N39.0 Urinary tract infection, site not specified; I69.354 Hemiplegia and hemiparesis following cerebral infarction affecting left non-dominant side; E87.20 Acidosis, unspecified; R09.02 Hypoxemia; E86.0 Dehydration; D69.6 Thrombocytopenia, unspecified; E87.6 Hypokalemia; I25.10 Atherosclerotic heart disease of native coronary artery without angina pectoris; I10 Essential (primary) hypertension; E78.5 Hyperlipidemia, unspecified; G40.909 Epilepsy, unspecified, not intractable, without status epilepticus; F10.20 Alcohol dependence, uncomplicated; D63.8 Anemia in other chronic diseases classified elsewhere; M54.32 Sciatica, left side; B95.2 Enterococcus as the cause of diseases classified elsewhere; B95.7 Other staphylococcus as the cause of diseases classified elsewhere; Z98.890 Other specified postprocedural states; Z88.5 Allergy status to narcotic agent; Z88.0 Allergy status to penicillin; Z90.49 Acquired absence of other specified parts of digestive tract; Z79.899 Other long term (current) drug therapy; Z79.02 Long term (current) use of antithrombotics/antiplatelets; Z79.82 Long term (current) use of aspirin; Z87.19 Personal history of other diseases of the digestive system; I25.2 Old myocardial infarction; Z74.01 Bed confinement status; Z98.51 Tubal ligation status; Z87.891 Personal history of nicotine dependence; Z90.710 Acquired absence of both cervix and uterus
CPT/HCPCS: 36415; 71045; 80048; 80053; 80202; 81001; 83605; 83735; 84145; 85025; 85027; 87040; 87077; 87086; 87186; 93306; 96361; 96365; 99284-25; A9270; J1650; J2405; J3370; J7030

== ENCOUNTER 2022-10-26 12:30 | Inpatient (IN) | payer OTHER ==
[~2022-10-26] VITALS: Ht 172.7 cm; Wt 65.9 kg
[~2022-10-26 12:30] MED LIST changes: +DRAMAMINE25 M3 PO; +LEVFLO500 PO; +LINE600 PO; +LORA.5 PO; +LYRICA225 M1 PO; +NITR100CA PO; +POTCHL20ER PO; +VISBIOME 112.51 EACH PO; +ZANAFLEX413 PO
[2022-10-26 13:47] LABS: BASOPHILS PERCENT AUTO 1 % (0-2); EOSINOPHILS ABSOLUTE AUTO 0.05 K/mm3 (0.00-0.68); EOSINOPHILS PERCENT AUTO 1 % (0-6); Hematocrit 43.6 % (33.0-51.0); Hemoglobin 14.4 g/dL (11.5-16.0); IMMATURE GRAN ABSOLUTE AUTO 0.04 K/mm3 (0.00-0.10); IMMATURE GRAN PERCENT AUTO 0 % (0-1); LYMPHOCYTES ABSOLUTE AUTO 2.36 K/mm3 (0.84-5.20); LYMPHOCYTES PERCENT AUTO 24 % (21-46); MONOCYTES ABSOLUTE AUTO 0.78 K/mm3 (0.16-1.47); MONOCYTES PERCENT AUTO 8 % (4-13); Mean Corpuscular HGB 32.7 pg (26.0-34.0); Mean Corpuscular Volume 99 fL (80-100); Mean Platelet Volume 10.7 fL (9.1-12.4); NEUTROPHILS ABSOLUTE AUTO 6.38 K/mm3 (1.96-9.15); NEUTROPHILS PERCENT AUTO 66 % (41-73); Platelet Count 347 K/mm3 (150-400); RDW Coefficient Variation 13.2 % (11.7-14.2); RDW Standard Deviation 48.6 fL (35.1-46.3); White Blood Cell Count 9.71 K/mm3 (4.00-11.30)
[2022-10-26 14:02] LABS: Albumin, Blood 3.2 g/dL (3.4-5.0); Albumin/Globulin Ratio 0.8 (0.8-1.8); Bilirubin, Total 0.8 mg/dL (0.1-1.0); Bun/Creatinine Ratio 23.4 (12.0-20.0); Calcium, Blood 9.1 mg/dL (8.5-10.1); Creatinine, Blood 0.43 mg/dL (0.40-1.00); Total Protein, Blood 7.2 g/dL (6.4-8.2)
[2022-10-26 16:08] LABS: Prothrombin Time Results 10.5 Sec (9.7-11.5)
[2022-10-26 16:12] LABS: Albumin, Blood 3.3 g/dL (3.4-5.0); Albumin/Globulin Ratio 0.9 (0.8-1.8); Bilirubin, Direct 0.2 mg/dL (0.0-0.3); Bilirubin, Indirect 0.5 mg/dL (0.1-0.7); Bilirubin, Total 0.7 mg/dL (0.1-1.0); Globulin, Blood 3.8 g/dL (2.2-4.0); Magnesium, Blood 1.8 mg/dL (1.6-2.4); Phosphorus, Blood 3.6 mg/dL (2.5-4.9); Total Protein, Blood 7.1 g/dL (6.4-8.2)
[2022-10-26 16:18] LABS: Source, Urine Clean Catch
[2022-10-26 16:22] LABS: Appearance, Urine Cloudy (Clear); Blood, Urine 5+ (Neg); Glucose Qualitative, Urine Neg (Neg); Ketones, Urine Neg (Neg); Leukocyte Esterase, Urine 3+ (Neg); Nitrite, Urine Pos (Neg); Protein, Urine 3+ (Neg); Specific Gravity, Urine 1.025 (1.003-1.022); Urobilinogen, Urine 2+ (Normal)
[2022-10-26 16:40] LABS: Bilirubin, Urine 2+ (Neg); Color, Urine Orange (P-Yellow)
[2022-10-26 16:42] LABS: White Blood Cells, Urine TNTC /hpf (0-5); Yeast/Fungi Urine Mod /hpf
[2022-10-26 16:43] LABS: Red Blood Cells, Urine TNTC /hpf (0-2); Squamous Epithelial Cells Few /hpf (Few)
[2022-10-26 16:44] LABS: Bacteria Many /hpf; Transitional Epithelial Cells Rare /hpf (0-Rare)
[2022-10-26 17:12] LABS: Influenza A, PCR NEGATIVE (NEGATIVE); Influenza B, PCR NEGATIVE (NEGATIVE); Resp Syncytial Virus, PCR NEGATIVE (NEGATIVE); SARS-Cov-2 (COVID-19) PCR, MMC NEGATIVE (NEGATIVE)
--- NOTE | 2022-10-26 23:58 | NUR ---
PT CHART REVIEWED FOR ADMIT
[2022-10-27 01:09] LABS: BASOPHILS ABSOLUTE AUTO 0.08 K/mm3 (0.00-0.23); BASOPHILS PERCENT AUTO 1 % (0-2); EOSINOPHILS ABSOLUTE AUTO 0.07 K/mm3 (0.00-0.68); EOSINOPHILS PERCENT AUTO 1 % (0-6); Hematocrit 37.8 % (33.0-51.0); Hemoglobin 12.3 g/dL (11.5-16.0); IMMATURE GRAN ABSOLUTE AUTO 0.02 K/mm3 (0.00-0.10); IMMATURE GRAN PERCENT AUTO 0 % (0-1); LYMPHOCYTES PERCENT AUTO 22 % (21-46); MONOCYTES ABSOLUTE AUTO 0.62 K/mm3 (0.16-1.47); MONOCYTES PERCENT AUTO 9 % (4-13); Mean Corpuscular HGB 32.5 pg (26.0-34.0); Mean Corpuscular HGB Conc 32.5 g/dL (31.5-36.5); Mean Corpuscular Volume 100 fL (80-100); Mean Platelet Volume 10.3 fL (9.1-12.4); NEUTROPHILS ABSOLUTE AUTO 4.84 K/mm3 (1.96-9.15); NEUTROPHILS PERCENT AUTO 67 % (41-73); Platelet Count 213 K/mm3 (150-400); RDW Standard Deviation 48.2 fL (35.1-46.3); Red Blood Cell Count 3.79 M/mm3 (3.80-5.20); White Blood Cell Count 7.23 K/mm3 (4.00-11.30)
[2022-10-27 01:34] LABS: Albumin, Blood 2.5 g/dL (3.4-5.0); Albumin/Globulin Ratio 0.8 (0.8-1.8); Bilirubin, Total 0.5 mg/dL (0.1-1.0); Bun/Creatinine Ratio 19.7 (12.0-20.0); Calcium, Blood 8.2 mg/dL (8.5-10.1); Creatinine, Blood 0.46 mg/dL (0.40-1.00); Globulin, Blood 3.2 g/dL (2.2-4.0); Potassium, Blood 3.4 mmol/L (3.5-5.5); Total Protein, Blood 5.7 g/dL (6.4-8.2)
[2022-10-27 01:50] VITALS: BP 163/99
[2022-10-27 04:19] VITALS: BP 159/91
--- NOTE | 2022-10-27 05:33 | NUR ---
EOS NOTE: PATIENT ARRIVED TO THE FLOOR AT 0135, A/OX4, BEDREST AT BASELINE DUE TO HX OF STROKE IN 2019 LEFT SIDE MOSTLY FLACCID/WEAK. TELE-NSR. PUREWICK IN PLACE, PATIENT IS CONTINENT GI/. WHEELCHAIR AT BASELINE WITH THE HELP OF WHO IS HER [employer] SUPERVISOR AT HOME. SKIN LOOKS CLEAR THROUGHOUT, SLIGHT REDNESS TO COCCYX BUT IS BLANCHABLE. VSS. WILL CONTINUE TO MONITOR.
[2022-10-27 08:39] VITALS: BP 189/105
[2022-10-27 15:17] VITALS: BP 140/61
--- NOTE | 2022-10-27 16:28 | NUR ---
DAYSHIFT SUMMARY Patient alert & oriented x4. Here for UTI, currently receiving IV ABX. Patient bedrest, uses wheelchair at home. History of CVA, left side deficits noted. Patient has full ROM with right arm, able to take pills & feed herself. Tylenol given for pain, PRN effective. Redness noted on coccyx, skin blanchable. Q2H turns. Positive blood cultures. Normal saline infusing continuously. Powerglide placed in LUE. Educated patient on ignition sources and risk of injury when O2 in use. Patient denied smoking, or having any sources in her personal belongings. Tele in place, NSR. Will continue plan of care.
[2022-10-27 20:06] VITALS: BP 138/80
[2022-10-28 01:25] LABS: Bun/Creatinine Ratio 15.2 (12.0-20.0); Calcium, Blood 7.4 mg/dL (8.5-10.1); Creatinine, Blood 0.53 mg/dL (0.40-1.00)
[2022-10-28 01:33] LABS: Vancomycin, Trough 22.3 ug/mL (5.0-10.0)
[2022-10-28 03:13] VITALS: BP 138/72
--- NOTE | 2022-10-28 03:35 | NUR ---
SHIFT SUMMARY 67 YR F ADMITTED ON 10/26/22 FOR UTI. FULL CODE. NO ACUTE CHANGES THIS SHIFT. PT C/O PAIN IN HER LEFT ANKLE. SHE STATED SHE TWISTED IT WHILE HER WAS TRYING TO HELP HER INTO HER WHEELCHAIR AT HOME. PAIN MEDS PER EMAR WERE AFFECTIVE. PT WAS ABLE TO SLEEP FOR SEVERAL HOURS AT A TIME THROUGHOUT THIS SHIFT. ARNALDO DC'D.
[2022-10-28 07:34] VITALS: BP 149/79
[2022-10-28 17:23] VITALS: BP 102/56
--- NOTE | 2022-10-28 18:07 | NUR ---
SHIFT SUMMARY: PT REMAINS A&O THIS SHIFT. SLEPT MOST OF THE DAY. VSS. RESP EVEN NONLABORED ON RA. PUREWIC IN PLACE WITH YELLOW CLOUDY OUTPUT. IV ANTIBX GIVEN ORDERED. REPOSITIONED FOR COMFORT. NO FURTHER NEEDS ID OR VERBALIZED. IGNITION SAFETY COMPLETED WITH HOURLY ROUNDS
[2022-10-28 19:36] VITALS: BP 105/65
[2022-10-29 03:38] VITALS: BP 133/80
--- NOTE | 2022-10-29 04:21 | NUR ---
SHIFT SUMMARY 67 YR F ADMITTED ON 10/26/22 FOR UTI. FULL CODE. NO ACUTE CHANGES THIS SHIFT. PT C/O PAIN IN HER LEFT ANKLE AND WAS MEDICATED PER EMAR. SHE HAS SLEPT FOR MOST OF THIS SHIFT. PUREWIK IN PLACE WITH GOOD RESULTS. PT STATES SHE IS HAVING SOME NEW PAIN IN HER "SCIATIC" ON THE LEFT SIDE. REPOSITIONING HELPS. PT HAS BEEN EDUCATED ON IGNITION HAZARD AND FIRE HAZARD WHILE OXYGEN IS IN USE. BED IN LOW POSITION AND CALL LIGHT WITHIN REACH.
[2022-10-29 07:51] VITALS: BP 145/75
[2022-10-29 09:23] LABS: Bun/Creatinine Ratio 12.4 (12.0-20.0); Calcium, Blood 8.2 mg/dL (8.5-10.1); Creatinine, Blood 0.72 mg/dL (0.40-1.00); Potassium, Blood 4.3 mmol/L (3.5-5.5)
--- NOTE | 2022-10-29 12:04 | NUR ---
SHIFT/DISCHARGE SUMMARY: Pt remains A&O x3 this shift. Back pain managed with current regime. VSS. Repositioned for comfort. Able to feed self with set up. Spouse at bedside with home w/c. All discharge instructions reviewed with return verbal understanding. Pt to lobby with spouse.
== END 2022-10-29 12:24 | disposition home or self-care (01) | DRG 872 ==
LOC: ER 12:30 → MEDS 23:28 → ENPENDDIS 10-29 10:14 → MEDS 10-29 12:24
PROVIDERS: Emergency Medicine; Internal Medicine; Physician Assistant; ADMIT Internal Medicine
DX: A41.9 Sepsis, unspecified organism (principal); E87.20 Acidosis, unspecified; I69.854 Hemiplegia and hemiparesis following other cerebrovascular disease affecting left non-dominant side; B37.49 Other urogenital candidiasis; R65.20 Severe sepsis without septic shock; G40.909 Epilepsy, unspecified, not intractable, without status epilepticus; I10 Essential (primary) hypertension; E78.5 Hyperlipidemia, unspecified; E87.6 Hypokalemia; D64.9 Anemia, unspecified; E86.0 Dehydration; Z20.822 Contact with and (suspected) exposure to COVID-19; F10.21 Alcohol dependence, in remission; Z74.01 Bed confinement status; I25.2 Old myocardial infarction; Z87.19 Personal history of other diseases of the digestive system; Z88.0 Allergy status to penicillin; Z88.1 Allergy status to other antibiotic agents; Z88.5 Allergy status to narcotic agent; Z79.890 Hormone replacement therapy; Z79.82 Long term (current) use of aspirin; Z79.899 Other long term (current) drug therapy; Z90.49 Acquired absence of other specified parts of digestive tract; Z90.710 Acquired absence of both cervix and uterus; Z98.51 Tubal ligation status; Z93.1 Gastrostomy status; Z87.891 Personal history of nicotine dependence; Z86.19 Personal history of other infectious and parasitic diseases
CPT/HCPCS: 0241U; 36415; 71046; 80048; 80053; 80076; 80202; 81001; 83605; 83735; 83880; 84100; 84145; 85025; 85610; 85730; 87040; 87077; 87086; 93005; 93010; 96361; 96365; 99284-25; A9270; J0696; J1650; J2543; J3370; J7030; J7050; J7120

== ENCOUNTER → 2022-11-16 | Outpatient (CLI) | payer OTHER ==
[2022-11-16 08:23] LABS: Source, Urine Clean Catch
[2022-11-16 10:11] LABS: Bacteria Mod /hpf; Red Blood Cells, Urine 0-2 /hpf (0-2); Squamous Epithelial Cells Few /hpf (Few); White Blood Cells, Urine TNTC /hpf (0-5)
== END ==
LOC: LAB SHORT 08:19 → LAB 08:19
PROVIDERS: Family Medicine
DX: N39.0 Urinary tract infection, site not specified (principal)
CPT/HCPCS: 81015; 87086; 87102; 87106

== ENCOUNTER 2022-12-03 11:11 | Emergency (ER) | payer OTHER ==
[~2022-12-03] VITALS: Ht 172.7 cm; Wt 59.0 kg
[2022-12-03 12:49] LABS: BASOPHILS ABSOLUTE AUTO 0.11 K/mm3 (0.00-0.23); BASOPHILS PERCENT AUTO 1 % (0-2); EOSINOPHILS ABSOLUTE AUTO 0.01 K/mm3 (0.00-0.68); EOSINOPHILS PERCENT AUTO 0 % (0-6); Hemoglobin 15.2 g/dL (11.5-16.0); IMMATURE GRAN ABSOLUTE AUTO 0.03 K/mm3 (0.00-0.10); IMMATURE GRAN PERCENT AUTO 0 % (0-1); LYMPHOCYTES ABSOLUTE AUTO 1.94 K/mm3 (0.84-5.20); LYMPHOCYTES PERCENT AUTO 19 % (21-46); MONOCYTES PERCENT AUTO 6 % (4-13); Mean Corpuscular HGB 31.6 pg (26.0-34.0); Mean Corpuscular Volume 96 fL (80-100); Mean Platelet Volume 10.8 fL (9.1-12.4); NEUTROPHILS ABSOLUTE AUTO 7.59 K/mm3 (1.96-9.15); NEUTROPHILS PERCENT AUTO 74 % (41-73); Platelet Count 217 K/mm3 (150-400); RDW Coefficient Variation 13.8 % (11.7-14.2); RDW Standard Deviation 48.1 fL (35.1-46.3); Red Blood Cell Count 4.81 M/mm3 (3.80-5.20); White Blood Cell Count 10.28 K/mm3 (4.00-11.30)
[2022-12-03 16:40] LABS: Albumin, Blood 3.4 g/dL (3.4-5.0); Albumin/Globulin Ratio 0.8 (0.8-1.8); Bilirubin, Total 0.5 mg/dL (0.1-1.0); Bun/Creatinine Ratio 20.6 (12.0-20.0); Calcium, Blood 9.4 mg/dL (8.5-10.1); Creatinine, Blood 0.58 mg/dL (0.40-1.00); Globulin, Blood 4.1 g/dL (2.2-4.0); Thyroid Stimulating Hormone 3.58 uIU/mL (0.360-4.800); Total Protein, Blood 7.5 g/dL (6.4-8.2)
[2022-12-03 17:19] LABS: Source, Urine Clean Catch
[2022-12-03] MEDS ORDERED: FOLI1 PO (17:27)
[2022-12-03] MEDS ORDERED: ONDA4ODT MM (17:27)
[2022-12-03 17:58] VITALS: BP 156/96
[2022-12-03 18:04] LABS: Appearance, Urine Turbid (Clear); Bilirubin, Urine Neg (Neg); Blood, Urine 5+ (Neg); Color, Urine Yellow (P-Yellow); Glucose Qualitative, Urine Neg (Neg); Ketones, Urine 2+ (Neg); Leukocyte Esterase, Urine 3+ (Neg); Nitrite, Urine Neg (Neg); Protein, Urine 3+ (Neg); Specific Gravity, Urine 1.025 (1.003-1.022); Urobilinogen, Urine NORM (Normal)
[2022-12-03 18:46] LABS: Bacteria Many /hpf; Squamous Epithelial Cells Few /hpf (Few); White Blood Cells, Urine TNTC /hpf (0-5); Yeast/Fungi Urine Rare /hpf
[2022-12-03 18:47] LABS: Mucus Mod (0-Heavy); Transitional Epithelial Cells Rare /hpf (0-Rare)
[2022-12-03] MEDS ORDERED: CEFP200 PO (19:01)
== END 2022-12-03 19:56 | disposition home or self-care (01) ==
LOC: ER 11:11
PROVIDERS: Emergency Medicine; Student in an Organized Health Care Education/Training Program
DX: R53.1 Weakness (principal); F10.90 Alcohol use, unspecified, uncomplicated; E53.8 Deficiency of other specified B group vitamins; R30.0 Dysuria; I10 Essential (primary) hypertension; E78.5 Hyperlipidemia, unspecified; G40.909 Epilepsy, unspecified, not intractable, without status epilepticus; Z88.5 Allergy status to narcotic agent; Z88.0 Allergy status to penicillin; Z79.899 Other long term (current) drug therapy; Z79.82 Long term (current) use of aspirin; Z87.891 Personal history of nicotine dependence
CPT/HCPCS: 80053; 81001; 82607; 82746; 83690; 84443; 85025; 87086; 87106; 96365; 99284-25; A9270; J0696; P9612

== ENCOUNTER → 2023-01-27 | Outpatient (CLI) | payer OTHER ==
[2023-01-27 15:20] LABS: Source, Urine Clean Catch
[2023-01-27 17:09] LABS: Appearance, Urine Hazy (Clear); Bilirubin, Urine Neg (Neg); Blood, Urine 3+ (Neg); Glucose Qualitative, Urine Neg (Neg); Ketones, Urine Neg (Neg); Leukocyte Esterase, Urine 3+ (Neg); Nitrite, Urine Neg (Neg); Protein, Urine Neg (Neg); Urobilinogen, Urine NORM (Normal)
[2023-01-27 17:24] LABS: Color, Urine Pale Yellow (P-Yellow)
[2023-01-27 17:25] LABS: Bacteria Few /hpf; Squamous Epithelial Cells Few /hpf (Few); White Blood Cells, Urine TNTC /hpf (0-5)
[2023-01-27 17:26] LABS: Transitional Epithelial Cells Few /hpf (0-Rare)
== END | disposition home or self-care (01) ==
LOC: LAB 14:35 → LAB SHORT 14:35
PROVIDERS: Family Medicine
DX: N39.0 Urinary tract infection, site not specified (principal)
CPT/HCPCS: 81001; 87077; 87086; 87186

== ENCOUNTER 2023-02-23 09:27 | Emergency (ER) | payer OTHER ==
[~2023-02-23] VITALS: Ht 172.7 cm; Wt 56.7 kg
[2023-02-23 10:17] LABS: BASOPHILS ABSOLUTE AUTO 0.06 K/mm3 (0.00-0.23); BASOPHILS PERCENT AUTO 1 % (0-2); EOSINOPHILS ABSOLUTE AUTO 0.09 K/mm3 (0.00-0.68); EOSINOPHILS PERCENT AUTO 1 % (0-6); Hematocrit 42.4 % (33.0-51.0); Hemoglobin 14.6 g/dL (11.5-16.0); IMMATURE GRAN ABSOLUTE AUTO 0.02 K/mm3 (0.00-0.10); IMMATURE GRAN PERCENT AUTO 0 % (0-1); LYMPHOCYTES ABSOLUTE AUTO 1.07 K/mm3 (0.84-5.20); LYMPHOCYTES PERCENT AUTO 12 % (21-46); MONOCYTES PERCENT AUTO 6 % (4-13); Mean Corpuscular HGB 33.7 pg (26.0-34.0); Mean Corpuscular HGB Conc 34.4 g/dL (31.5-36.5); Mean Corpuscular Volume 98 fL (80-100); Mean Platelet Volume 10.2 fL (9.1-12.4); NEUTROPHILS ABSOLUTE AUTO 6.92 K/mm3 (1.96-9.15); NEUTROPHILS PERCENT AUTO 80 % (41-73); Platelet Count 143 K/mm3 (150-400); RDW Coefficient Variation 14.5 % (11.7-14.2); Red Blood Cell Count 4.33 M/mm3 (3.80-5.20); White Blood Cell Count 8.66 K/mm3 (4.00-11.30)
[2023-02-23 10:29] LABS: Source, Urine Straight Cath
[2023-02-23 10:33] LABS: Appearance, Urine Cloudy (Clear); Blood, Urine 5+ (Neg); Color, Urine Amber (P-Yellow); Glucose Qualitative, Urine Neg (Neg); Ketones, Urine 2+ (Neg); Leukocyte Esterase, Urine 3+ (Neg); Nitrite, Urine Pos (Neg); Protein, Urine 3+ (Neg); Urobilinogen, Urine 2+ (Normal)
[2023-02-23 10:40] LABS: Bilirubin, Urine 2+ (Neg)
[2023-02-23 10:45] LABS: White Blood Cells, Urine TNTC /hpf (0-5)
[2023-02-23 10:46] LABS: Albumin, Blood 3.6 g/dL (3.4-5.0); Albumin/Globulin Ratio 0.9 (0.8-1.8); Bilirubin, Total 0.9 mg/dL (0.1-1.0); Bun/Creatinine Ratio 26.4 (12.0-20.0); Calcium, Blood 9.3 mg/dL (8.5-10.1); Creatinine, Blood 0.42 mg/dL (0.40-1.00); Total Protein, Blood 7.6 g/dL (6.4-8.2)
[2023-02-23 10:46] LABS: Bacteria Many /hpf; Red Blood Cells, Urine 25-50 /hpf (0-2); Squamous Epithelial Cells Few /hpf (Few); Transitional Epithelial Cells Rare /hpf (0-Rare)
[2023-02-23] MEDS ORDERED: ONDA4ODT SL (12:44)
[2023-02-23] MEDS ORDERED: CEFP200 PO (12:44)
[2023-02-23 13:37] VITALS: BP 171/94
== END 2023-02-23 13:38 | disposition home or self-care (01) ==
LOC: ER 09:27
PROVIDERS: Emergency Medicine
DX: N39.0 Urinary tract infection, site not specified (principal); G40.909 Epilepsy, unspecified, not intractable, without status epilepticus; I69.954 Hemiplegia and hemiparesis following unspecified cerebrovascular disease affecting left non-dominant side; I25.2 Old myocardial infarction; I10 Essential (primary) hypertension; E78.5 Hyperlipidemia, unspecified; Z88.0 Allergy status to penicillin; Z88.5 Allergy status to narcotic agent; Z79.899 Other long term (current) drug therapy; Z79.82 Long term (current) use of aspirin; Z87.891 Personal history of nicotine dependence
CPT/HCPCS: 80053; 81001; 83690; 85025; 87086; 87106; 93005; 93010; 96361; 96365; 96375; 99284-25; A9270; J0696; J1953; J2405; J7030; P9612

== ENCOUNTER → 2023-03-14 | Outpatient (CLI) | payer OTHER ==
[~2023-03-14] MED LIST changes: +ONDA4ODT SL
[2023-03-15 16:46] LABS: HIV 1,2 COMBO ANTIGEN/ANTIBODY Negative (Negative)
== END | disposition home or self-care (01) ==
LOC: LAB 12:15 → LAB SHORT 12:15
PROVIDERS: Family Medicine
DX: D69.6 Thrombocytopenia, unspecified (principal); I69.354 Hemiplegia and hemiparesis following cerebral infarction affecting left non-dominant side; G40.209 Localization-related (focal) (partial) symptomatic epilepsy and epileptic syndromes with complex partial seizures, not intractable, without status epilepticus
CPT/HCPCS: 87389

== ENCOUNTER 2023-05-15 15:21 | Inpatient (IN) | payer OTHER ==
[~2023-05-15] VITALS: Ht 165.1 cm; Wt 68.0 kg
[2023-05-15] MEDS ORDERED: levETIRAcetam 3,000 MG in NS 100 ML IV ONE (15:35)
[2023-05-15 15:40] LABS: Calcium, Ionized (POC) 1.04 mmol/L (1.10-1.46); Chloride (POC) 103 mmol/L (98-108); Creatinine (POC) 0.3 mg/dL (0.6-1.0); Glucose (ISTAT POC) 99 mg/dL (70-99); Hemoglobin (POC) 15.6 g/dL (12.0-16.0); Potassium (POC) 4.3 mmol/L (3.5-5.5); Sodium (POC) 138 mmol/L (135-148); Total CO2 (POC) 17 mmol/L (21-32)
[2023-05-15 15:43] LABS: BASOPHILS ABSOLUTE AUTO 0.14 K/mm3 (0.00-0.23); BASOPHILS PERCENT AUTO 1 % (0-2); EOSINOPHILS PERCENT AUTO 0 % (0-6); Hematocrit 43.2 % (33.0-51.0); Hemoglobin 14.2 g/dL (11.5-16.0); IMMATURE GRAN ABSOLUTE AUTO 0.06 K/mm3 (0.00-0.10); IMMATURE GRAN PERCENT AUTO 1 % (0-1); LYMPHOCYTES ABSOLUTE AUTO 1.07 K/mm3 (0.84-5.20); LYMPHOCYTES PERCENT AUTO 10 % (21-46); MONOCYTES ABSOLUTE AUTO 0.35 K/mm3 (0.16-1.47); MONOCYTES PERCENT AUTO 3 % (4-13); Mean Corpuscular HGB 34.6 pg (26.0-34.0); Mean Corpuscular HGB Conc 32.9 g/dL (31.5-36.5); Mean Corpuscular Volume 105 fL (80-100); Mean Platelet Volume 9.8 fL (9.1-12.4); NEUTROPHILS ABSOLUTE AUTO 9.37 K/mm3 (1.96-9.15); NEUTROPHILS PERCENT AUTO 85 % (41-73); Platelet Count 264 K/mm3 (150-400); RDW Coefficient Variation 13.2 % (11.7-14.2); RDW Standard Deviation 51.8 fL (35.1-46.3); White Blood Cell Count 10.99 K/mm3 (4.00-11.30)
[2023-05-15] MEDS ORDERED: LORazepam 2 MG/ML 1ML Injection ONE (15:45)
[2023-05-15] MEDS ORDERED: LEVETIRACETAM IV ONE (16:00)
[2023-05-15] MEDS ORDERED: NS IV ONE (16:00)
[2023-05-15 16:13] LABS: Magnesium, Blood 1.7 mg/dL (1.6-2.4)
[2023-05-15 16:16] LABS: Source, Urine Straight Cath
[2023-05-15 16:17] LABS: Albumin, Blood 3.7 g/dL (3.4-5.0); Bilirubin, Total 0.8 mg/dL (0.1-1.0); Bun/Creatinine Ratio 26.5 (12.0-20.0); Calcium, Blood 8.7 mg/dL (8.5-10.1); Creatinine, Blood 0.34 mg/dL (0.40-1.00); Globulin, Blood 3.7 g/dL (2.2-4.0); Potassium, Blood 4.2 mmol/L (3.5-5.5); Thyroid Stimulating Hormone 1.27 uIU/mL (0.360-4.800); Total Protein, Blood 7.4 g/dL (6.4-8.2)
[2023-05-15 16:22] LABS: Appearance, Urine Hazy (Clear); Bilirubin, Urine Neg (Neg); Blood, Urine 5+ (Neg); Glucose Qualitative, Urine Neg (Neg); Ketones, Urine 4+ (Neg); Leukocyte Esterase, Urine 3+ (Neg); Nitrite, Urine Neg (Neg); Protein, Urine 2+ (Neg); Specific Gravity, Urine 1.025 (1.003-1.022); Urobilinogen, Urine NORM (Normal)
[2023-05-15 16:28] LABS: Color, Urine Pale Yellow (P-Yellow)
[2023-05-15] MEDS ORDERED: NS 1,000 ML IV SCH ×2 (16:30→20:05)
[2023-05-15 16:32] LABS: Bacteria Many /hpf; Squamous Epithelial Cells Few /hpf (Few); White Blood Cells, Urine 25-50 /hpf (0-5)
[2023-05-15 16:34] LABS: Mucus Light (0-Heavy)
[2023-05-15 16:55] LABS: Base Excess Venous -11.2 mmol/L; PCO2 Venous 27.5 mmHg (38-42); pH Blood Venous 7.33 (7.34-7.37)
[2023-05-15] MEDS ORDERED: CefTRIAXone Sodium 1,000 MG in NS 50 ML IV ONE (17:05)
[2023-05-15] MEDS ORDERED: Ondansetron HCl 2 MG / ML 2ML Vial IV ONE (17:50)
[2023-05-15 18:26] LABS: Ethanol (Alcohol), Blood, Med 6 mg/dL
[2023-05-15] MEDS ORDERED: LORazepam 2 MG/ML 1ML Injection IV PRN ×3 (18:35→20:10)
[2023-05-15] MEDS ORDERED: LORazepam 2 MG/ML 1ML Injection IV ONE (18:45)
[2023-05-15] MEDS ORDERED: Magnesium Sulf 2 GM/Water 50ML 50 ML IV STA (18:49)
[2023-05-15] MEDS ORDERED: Ketorolac Tromethamine 30mg Vial IV ONE (19:25)
[2023-05-15] MEDS ORDERED: Acetaminophen 325 MG TABLET PO PRN (20:05)
[2023-05-15] MEDS ORDERED: Ondansetron HCl 2 MG / ML 2ML Vial IV PRN (20:05)
[2023-05-15] MEDS ORDERED: ChlordiazePOXIDE 25 MG Cap PO PRN ×2 (20:05→20:15)
[2023-05-15] MEDS ORDERED: FLU VACC QS2023-24(6MOS UP)/PF 60 MCG/0.5 ML SYRINGE IM ONE (20:10)
[2023-05-15] MEDS ORDERED: OxyCODONE HCL 5 MG TAB PO PRN (20:15)
[2023-05-15 20:38] LABS: U Amphetamine Screen Not Detected; U Barbituate Screen Not Detected; U Benzodiazapine Screen Not Detected; U Buprenorphine Screen Not Detected; U Cannabinoids Screen Not Detected; U Cocaine Screen Not Detected; U Methadone Screen Not Detected; U Methamphetamine Screen Not Detected; U Opiates Screen Not Detected; U Oxycodone Screen Not Detected; U Phencyclidine Screen Not Detected
[2023-05-15] MEDS ORDERED: Metoclopramide HCl 5MG / ML 2ML Vial IV ONE (21:00)
[2023-05-15] MEDS ORDERED: ChlordiazePOXIDE 25 MG Cap PO ONE (21:00)
[2023-05-15] MEDS ORDERED: Aspirin 81 MG TabEC PO SCH (21:00)
[2023-05-15] MEDS ORDERED: Pregabalin 75 MG Cap PO SCH (21:00)
[2023-05-15] MEDS ORDERED: TiZANidine HCl 4 MG Tab PO SCH (21:00)
[2023-05-15 22:53] VITALS: BP 106/61
--- NOTE | 2023-05-16 00:22 | NUR ---
ER TRANFER TO MEDICAL FLOOR PT ARRIVED FROM ED VIA GURNEY. PT IS CHAIRFAST AT BASELINE DUE TO L SIDE DEFECITS FROM PRIOR CVA. PT ALERT AND ORIENTED TO SELF AND PLACE, DATE UNKNOWN. PT SPEECH MUMBLED AND SOFT, DIFFICULT TO UNDERSTAND. SPOUSE NOT PRESENT. TELE HOOKED UP, SR 76. NO SKIN ISSUES NOTED. PT REPORTING NAUSEA, SEVERE HEADACHE ALL DAY AND FEELING SICK FROM NOT ETOH WITHDRAWAL. CIWA AT 19, DISCUSSED WITH CHARGE NURSE YUKI. PT GIVEN ATIVAN 1MG, ROXICODONE AND ZOFRAN. PT RESTING COMFROTABLY BY THE END OF ADMISSION ASSESSMENT AND SLEEPING SOUNDLY, CIWA AT 2. PT REPORTED SHE QUIT DRINKING YESTERDAY "TO SAVE MONEY" AND DIDN'T REALIZE SHE WOULD BE SO SICK AND THAT IT WOULD CAUSE INCREASED SEIZURES. PT REPORTS DRINKING 1 PINT OF RUM DAILY FOR THE LAST FEW YEARS AND THIS IS THE FIRST TIME SHE HAS STOPPED. PURWIK IN PLACE. 05/16/23 AUDIE DRISCOLL RN
[2023-05-16 03:47] VITALS: BP 114/60
[2023-05-16 04:45] LABS: Hematocrit 36.5 % (33.0-51.0); Mean Corpuscular HGB 34.7 pg (26.0-34.0); Mean Corpuscular HGB Conc 32.9 g/dL (31.5-36.5); Mean Corpuscular Volume 106 fL (80-100); Mean Platelet Volume 10.2 fL (9.1-12.4); Platelet Count 173 K/mm3 (150-400); RDW Coefficient Variation 13.4 % (11.7-14.2); RDW Standard Deviation 52.5 fL (35.1-46.3); Red Blood Cell Count 3.46 M/mm3 (3.80-5.20)
[2023-05-16 05:00] LABS: Bun/Creatinine Ratio 25.1 (12.0-20.0); Calcium, Blood 7.4 mg/dL (8.5-10.1); Creatinine, Blood 0.4 mg/dL (0.40-1.00); Magnesium, Blood 2.2 mg/dL (1.6-2.4); Potassium, Blood 4.2 mmol/L (3.5-5.5)
[2023-05-16 08:13] VITALS: BP 127/65
[2023-05-16] MEDS ORDERED: LYRICA PO (08:28)
[2023-05-16] MEDS ORDERED: DULoxetine HCL 30 MG Cap DR PO SCH (09:00)
[2023-05-16] MEDS ORDERED: Thiamine HCl 500 MG in NS 100 ML IV SCH (09:00)
[2023-05-16] MEDS ORDERED: Multivitamins 1 Tab PO SCH (09:00)
[2023-05-16] MEDS ORDERED: LevETIRAcetam 500 MG Tab PO SCH (09:00)
[2023-05-16] MEDS ORDERED: Enoxaparin 40 MG/0.4 ML SYR SC SCH (09:00)
[2023-05-16] MEDS ORDERED: Thiamine HCl 100 MG Tab PO SCH (09:00)
[2023-05-16] MEDS ORDERED: Folic Acid 1 MG TAB PO SCH (09:00)
[2023-05-16 14:41] VITALS: BP 106/64
[2023-05-16] MEDS ORDERED: ATOR40TA PO (14:51)
--- NOTE | 2023-05-16 17:37 | NUR ---
SHIFT SUMMARY; PATIENT HAD NO ACUTE CHANGES IN CONDITION DURING DAY SHIFT. SHE COMPLAINS OF PAIN TO HER RIGHT FOOT. HOWEVER IS NOTED TO BE IN A DEEP SLEEP RIGHT AFTER COMPLAINING OF PAIN. PATIENT DOES ALLOW TYLENOL THIS AFTERNOON FOR PAIN AND HAS SLIGHT DECREASE IN PAIN PER PATIENT. SHE IS NOTED TO HAVE MINIMAL OUTPUT. BLADDER SCAN THIS AFTERNOON IS 360ML URINE. SHE EATS A GOOD BREAKFAST HOWEVER IS NOTED TO REFUSE LUNCH. SPOUSE AT BEDSIDE THIS AFTERNOON. IS ENCOURAGING PATIENT TO TRY AND EAT. PATIENT IS VERY CONCERNED THAT SHE NEEDS PAIN MEDICATIONS TO GO HOME WITH. VITAL SIGNS ARE WNL. NO AREA OF CONCERNS NOTED. WILL REMAIN AVAILABLE FOR THIS PATIENT FOR ANY WANTS OR NEEDS THAT COME UP PRIOR TO NOC SHIFT REPORT TO ONCOMING RN.
[2023-05-16 19:05] VITALS: BP 125/62
[2023-05-17 02:21] VITALS: BP 149/91
--- NOTE | 2023-05-17 04:47 | NUR ---
END OF SHIFT SUMMARY PT A&O x3, VSS, AFEBRILE. PT ADMITTED FOR UTI. CIWA SCORES HAVE BEEN 4, 3, AND 3 Q4 HOURS STARTING AT 2000 LAST NIGHT. PRN PAIN MEDICATION GIVEN AND EFFECTIVE. PAIN MANAGED WITH PRN OXYCODONE AND APAP. PT ON RA, RESP RATE EVEN AND UNLABORED. PT REPOSITIONED THROUGHOUT THE SHIFT FOR COMFORT. PT INCONTINENT OF BLADDER, PUREWICK IN PLACE, WITH GOOD OUTPUT. PT ABLE TO MAKE NEEDS KNOWN, CALL LIGHT WITHIN REACH, WCTM.
[2023-05-17 07:40] VITALS: BP 140/66
[2023-05-17] MEDS ORDERED: APHEN325 M1 PO (10:59)
[2023-05-17] MEDS ORDERED: ONDA4ODT MM (11:00)
[2023-05-17 22:55] LABS: KEPPRA (LEVETIRACETAM) 7 ug/mL (10-40)
== END 2023-05-17 12:10 | disposition home health service (06) | DRG 101 ==
LOC: ER 15:21 → MEDS 15:22 → ENPENDDIS 05-17 09:53 → MEDS 05-17 12:10
PROVIDERS: Nurse Practitioner Acute Care; Student in an Organized Health Care Education/Training Program; ADMIT Internal Medicine
DX: G40.909 Epilepsy, unspecified, not intractable, without status epilepticus (principal); E87.20 Acidosis, unspecified; I69.354 Hemiplegia and hemiparesis following cerebral infarction affecting left non-dominant side; R82.71 Bacteriuria; F10.20 Alcohol dependence, uncomplicated; L89.899 Pressure ulcer of other site, unspecified stage; I25.10 Atherosclerotic heart disease of native coronary artery without angina pectoris; E66.9 Obesity, unspecified; E78.5 Hyperlipidemia, unspecified; Z91.148 Patient's other noncompliance with medication regimen for other reason; Z99.3 Dependence on wheelchair; Z79.82 Long term (current) use of aspirin; Z87.19 Personal history of other diseases of the digestive system; I25.2 Old myocardial infarction; Z87.891 Personal history of nicotine dependence; Z68.25 Body mass index [BMI] 25.0-25.9, adult; Z28.21 Immunization not carried out because of patient refusal
CPT/HCPCS: 36415; 51701; 70450; 71045; 80047; 80048; 80053; 80177; 81001; 82803; 82947; 83605; 83690; 83735; 84443; 85014; 85025; 85027; 87086; 93005; 93010; 96365-59; 96366-59; 96367-59; 96372; 96375; 96375-59; 96376; 99285-25; A9270; G0378; J0696; J1650; J1885; J1953; J2060; J2405; J2765; J3411; J3475; J7030; J7050

== ENCOUNTER 2024-03-23 10:17 | Inpatient (IN) | payer OTHER ==
[~2024-03-23] VITALS: Ht 175.3 cm; Wt 83.0 kg
[~2024-03-23 10:17] MED LIST changes: +APHEN325 M1 PO; +LYRICA PO
[2024-03-23] MEDS ORDERED: ZANAFLEX413 PO (10:33)
[2024-03-23 10:42] LABS: BASOPHILS ABSOLUTE AUTO 0.06 K/mm3 (0.00-0.23); BASOPHILS PERCENT AUTO 1 % (0-2); EOSINOPHILS PERCENT AUTO 0 % (0-6); Hematocrit 40.4 % (33.0-51.0); Hemoglobin 13.6 g/dL (11.5-16.0); IMMATURE GRAN ABSOLUTE AUTO 0.04 K/mm3 (0.00-0.10); IMMATURE GRAN PERCENT AUTO 1 % (0-1); LYMPHOCYTES ABSOLUTE AUTO 1.67 K/mm3 (0.84-5.20); LYMPHOCYTES PERCENT AUTO 20 % (21-46); MONOCYTES ABSOLUTE AUTO 0.91 K/mm3 (0.16-1.47); MONOCYTES PERCENT AUTO 11 % (4-13); Mean Corpuscular HGB 33.5 pg (26.0-34.0); Mean Corpuscular HGB Conc 33.7 g/dL (31.5-36.5); Mean Corpuscular Volume 100 fL (80-100); Mean Platelet Volume 9.3 fL (9.1-12.4); NEUTROPHILS ABSOLUTE AUTO 5.75 K/mm3 (1.96-9.15); NEUTROPHILS PERCENT AUTO 68 % (41-73); Platelet Count 187 K/mm3 (150-400); RDW Coefficient Variation 14.3 % (11.7-14.2); RDW Standard Deviation 51.8 fL (35.1-46.3); Red Blood Cell Count 4.06 M/mm3 (3.80-5.20); White Blood Cell Count 8.43 K/mm3 (4.00-11.30)
[2024-03-23 11:03] LABS: Albumin, Blood 2.3 g/dL (3.4-5.0); Albumin/Globulin Ratio 0.5 (0.8-1.8); Bun/Creatinine Ratio 10.3 (12.0-20.0); Calcium, Blood 9.6 mg/dL (8.5-10.1); Creatinine, Blood 0.59 mg/dL (0.40-1.00); Globulin, Blood 4.2 g/dL (2.2-4.0); Potassium, Blood 3.9 mmol/L (3.5-5.5); Total Protein, Blood 6.5 g/dL (6.4-8.2)
[2024-03-23 12:06] LABS: CORONAVIRUS COVID-19 AG Negative (NEGATIVE); INFLUENZA A AG Negative (NEGATIVE); INFLUENZA B AG Negative (NEGATIVE)
[2024-03-23] MEDS ORDERED: Ondansetron HCl 2 MG / ML 2ML Vial IV ONE ×2 (12:55→14:10)
[2024-03-23] MEDS ORDERED: Ibuprofen 600 MG Tab PO ONE (13:40)
[2024-03-23] MEDS ORDERED: NS 1,000 ML IV SCH (13:40)
[2024-03-23] MEDS ORDERED: Acetaminophen 500 MG Tab PO ONE (13:40)
[2024-03-23] MEDS ORDERED: LevETIRAcetam 100 MG/ML 5ML ORAL SYR PO ONE (13:50)
[2024-03-23] MEDS ORDERED: Mag Hydrox/AL Hydrox/Simeth 30 ML UDC PO ONE (14:00)
[2024-03-23] MEDS ORDERED: HYDROmorphone HCl/Pf 1MG SYR IV ONE ×2 (15:25→19:00)
[2024-03-23] MEDS ORDERED: Lactated Ringer's 1,000 ML IV ONE (18:55)
[2024-03-23 19:16] LABS: Source, Urine Clean Catch
[2024-03-23 19:25] LABS: Appearance, Urine Turbid (Clear); Blood, Urine 5+ (Neg); Color, Urine Amber (P-Yellow); Glucose Qualitative, Urine Neg (Neg); Ketones, Urine 2+ (Neg); Leukocyte Esterase, Urine 3+ (Neg); Nitrite, Urine Neg (Neg); Protein, Urine 4+ (Neg); Urobilinogen, Urine 2+ (Normal)
[2024-03-23] MEDS ORDERED: MetroNIDAZOLE 500MG/NS 100 ml 100 ML IV ONE (19:30)
[2024-03-23] MEDS ORDERED: CefTRIAXone Sodium 1,000 MG in NS 100 ML IV ONE (19:30)
[2024-03-23 19:52] LABS: Bilirubin, Urine 1+ (Neg)
[2024-03-23 19:53] LABS: Bacteria Many /hpf; Red Blood Cells, Urine TNTC /hpf (0-2); White Blood Cells, Urine TNTC /hpf (0-5)
[2024-03-23 19:54] LABS: Squamous Epithelial Cells Few /hpf (Few); Transitional Epithelial Cells Rare /hpf (0-Rare)
[2024-03-23] MEDS ORDERED: Ondansetron HCl 2 MG / ML 2ML Vial IV PRN (20:25)
[2024-03-23] MEDS ORDERED: Lactated Ringer's 1,000 ML IV SCH (20:25)
[2024-03-23] MEDS ORDERED: FLU VACC TS2024-25(6MOS UP)/PF 45 MCG/0.5 ML SYRINGE IM SCH (20:25)
[2024-03-23] MEDS ORDERED: LORazepam 2 MG/ML 1ML Injection IV PRN ×2 (20:30)
[2024-03-23] MEDS ORDERED: ChlordiazePOXIDE 25 MG Cap PO PRN ×2 (20:30)
[2024-03-23] MEDS ORDERED: HYDROmorphone HCl/Pf 1MG SYR IV PRN ×2 (20:35→23:20)
[2024-03-23] MEDS ORDERED: PREG300 PO (20:44)
[2024-03-23] MEDS ORDERED: LevETIRAcetam 500 MG Tab PO SCH (21:00)
[2024-03-23] MEDS ORDERED: Lactobacil 2-S.Thermo-Bifido 1 1 Cap PO SCH (21:00)
[2024-03-23] MEDS ORDERED: MetroNIDAZOLE 500MG/NS 100 ml 100 ML IV SCH (23:05)
[2024-03-23 23:10] VITALS: BP 116/95
[2024-03-24 03:28] VITALS: BP 141/91
[2024-03-24 06:17] LABS: BASOPHILS ABSOLUTE AUTO 0.08 K/mm3 (0.00-0.23); BASOPHILS PERCENT AUTO 1 % (0-2); EOSINOPHILS ABSOLUTE AUTO 0.03 K/mm3 (0.00-0.68); EOSINOPHILS PERCENT AUTO 0 % (0-6); Hemoglobin 12.1 g/dL (11.5-16.0); IMMATURE GRAN ABSOLUTE AUTO 0.11 K/mm3 (0.00-0.10); IMMATURE GRAN PERCENT AUTO 2 % (0-1); LYMPHOCYTES ABSOLUTE AUTO 1.92 K/mm3 (0.84-5.20); LYMPHOCYTES PERCENT AUTO 27 % (21-46); MONOCYTES ABSOLUTE AUTO 0.81 K/mm3 (0.16-1.47); MONOCYTES PERCENT AUTO 12 % (4-13); Mean Corpuscular HGB Conc 32.7 g/dL (31.5-36.5); Mean Corpuscular Volume 104 fL (80-100); Mean Platelet Volume 9.3 fL (9.1-12.4); NEUTROPHILS ABSOLUTE AUTO 4.05 K/mm3 (1.96-9.15); NEUTROPHILS PERCENT AUTO 58 % (41-73); Platelet Count 139 K/mm3 (150-400); RDW Coefficient Variation 14.2 % (11.7-14.2); RDW Standard Deviation 54.1 fL (35.1-46.3); Red Blood Cell Count 3.56 M/mm3 (3.80-5.20)
[2024-03-24 06:31] LABS: International Normalized Ratio 1.09; Prothrombin Time Results 11.6 Sec (9.7-11.5)
[2024-03-24 06:41] LABS: Albumin, Blood 2.1 g/dL (3.4-5.0); Albumin/Globulin Ratio 0.6 (0.8-1.8); Bilirubin, Total 0.9 mg/dL (0.1-1.0); Bun/Creatinine Ratio 10.8 (12.0-20.0); Calcium, Blood 8.5 mg/dL (8.5-10.1); Creatinine, Blood 0.65 mg/dL (0.40-1.00); Globulin, Blood 3.7 g/dL (2.2-4.0); Magnesium, Blood 1.5 mg/dL (1.6-2.4); Total Protein, Blood 5.8 g/dL (6.4-8.2)
--- NOTE | 2024-03-24 06:50 | NUR ---
REMELT OPERATOR SUMMARY PT ADMITTED FROM THE ER WITH N/V/ABD PAIN. TACHYCARDIC 100-110, REQUIRING 2L O2 AT TIMES, ESPECIALLY AFTER PAIN MEDICINE. PT MADE NPO FOR POSSIBLE PROCEDURE TODAY. DR SALOMON OFFICE CALLED WITH SURGICAL CONSULT. PT HAS L HEMIPARESIS AT BASELINE AND WAS TURNED EVERY 2 HOURS. PT SAYS SHE HASNT BEEN DRINKING ALCOHOL IN THE LAST COUPLE OF DAYS MUCH SHE NORMALLY DOES BECAUSE OF N/V/ABD PAIN AND IS HAVING SEVERE CRAVINGS FOR ALCOHOL AND FEELS VERY ANXIOUS. I EVENTUALLY GAVE HER ONE DOSE OF IV ATIVAN WHEN HER ANXIETY BECAME VERY SEVERE. PT REQUIRED PLACEMENT OF A POWERGLIDE FOR CT CONTRAST SHE IS A VERY DIFFICULT IV START. TOOK PT DOWN TO CT FOR HER SCAN AND IT WAS VERY PAINFUL AND ANXIETY PRODUCING FOR PT. STILL WAITING ON RESULTS. PT HAS BEEN ASKING FOR PAIN MEDICATION, GAVE 0.5 MG DILAUDID 10-20 MINUTES APART BECAUSE PT DOES DESAT A LITTLE WITH PUSHES BUT UNFORTUNATELY, 0.5MG DIDNT HELP HER ENOUGH FOR HER TO RELAX AND SHE NEEDS THE FULL 1 MG. MRI QUESTIONAIRE NOT COMPLETED BECAUSE PT CAME UP TO THE UNIT LATE AND HER DIDNT ANSWER THE PHONE BECAUSE ACCORDING TO PT HE DOESNT ANSWER THE PHONE WHEN HE IS SLEEPING BUT HE WILL BE COMING IN THE MORNING AND WE WILL CONTINUE TO TRY TO GET A HOLD OF HIM. PT THINKS SHE MIGHT HAVE METAL IN HER BODY BUT ISNT SURE AND CANNOT ANSWER DETAILED QUESTIONS ABOUT HER MEDICAL HISTORY.
[2024-03-24 07:30] VITALS: BP 162/94
[2024-03-24] MEDS ORDERED: Atorvastatin 40 MG Tab PO SCH (09:00)
[2024-03-24] MEDS ORDERED: Aspirin 81 MG Chew PO SCH (09:00)
[2024-03-24 09:25] LABS: Anti-Xa UFH, PHA Monitoring <0.10 IU/mL
[2024-03-24] MEDS ORDERED: Heparin Sodium 5000 Units/ML 1ML MDV IV ONE (09:35)
[2024-03-24] MEDS ORDERED: Heparin Sodium,Porcine/0.5 NS 500 ML IV SCH (09:35)
[2024-03-24] MEDS ORDERED: LEVE500 PO (10:23)
[2024-03-24] MEDS ORDERED: LevETIRAcetam 100 MG/ML 5ML ORAL SYR PO SCH (10:25)
[2024-03-24] MEDS ORDERED: Thiamine HCl 200 MG in NS 100 ML IV SCH (15:00)
[2024-03-24] MEDS ORDERED: Magnesium Sulf 2 GM/Water 50ML 50 ML IV STA (15:56)
[2024-03-24] MEDS ORDERED: Potassium Chloride 40 MEQ in NS 250 ML IV ONE (16:00)
[2024-03-24] MEDS ORDERED: NS 250 ML IV PRN (17:20)
--- NOTE | 2024-03-24 17:35 | NUR ---
1645- PT RETURNED BACK FROM HIDA SCAN. SENT BLOOD TO LAB FOR ANTI-XA FOR HEPARIN ADMIN SCHEDULED FOR 1600. PT IS ALERT AND ORIENTED, VERBAL AND PLEASANT. DENIES ABD PAIN, STATES PAIN IN LEGS 01/04, MEDICATED SEE MAY.
[2024-03-24 17:44] VITALS: BP 144/76
[2024-03-24] MEDS ORDERED: Dose Adjust by Pharmacy XX STA (17:45)
[2024-03-24 19:43] VITALS: BP 141/84
--- NOTE | 2024-03-24 19:46 | NUR ---
SUMMARY- PT A/OX3, DEPENDANT IN CARE, INCONT B/B USING [employer] SYSTEM. PT NPO ALL DAY, WENT FOR HIDA SCAN FROM [phone]. PT'S ABD SOFT, NORMOACTIVE BT'S. STARTED ON CLEARS AFTER SCAN PER ORDER DR SALOMON. SHE WAS IN TO SPEAK WITH FAMILY BEFORE HIDA SCAN AND STATES SHE WILL BE IN AM AROUND 800 TO DISCUSS OPTIONS. PT HAS LR RUNNING AT 75ML/HR. PT HAS HEPARIN GTT FOR PE. LUNGS CTA, BASELINE ROOM AIR, PT WAS ON ROOM AIR THIS AM, WITH SAT 94%, LATER DESAT TO 85%, REPLACED 02 2L. SATS 95% ON 2L. ECHO AND LE ULTRASOUND ALSO COMPLETE. CIWA 2-9, MEDICATED ONCE THIS AM WITH ATIVAN IV AND LIBRIUM 25MG ONCE IN PM, HELPFUL FOR ETHO W/D. PAIN CONTROLLED WITH IV DILAUDID ONLY ONCE THIS SHIFT (HOLDING OFF NARCOTICS BEFORE HIDA SCAN) PRESENT MOST OF THE DAY, ATTENTIVE IN CARE. REPORTED ALL TO RAMESH OWODWARD.
[2024-03-24] MEDS ORDERED: CefTRIAXone Sodium 1,000 MG in NS 100 ML IV SCH (21:00)
[2024-03-25 01:20] LABS: BASOPHILS ABSOLUTE AUTO 0.13 K/mm3 (0.00-0.23); BASOPHILS PERCENT AUTO 2 % (0-2); EOSINOPHILS PERCENT AUTO 3 % (0-6); Hematocrit 36.1 % (33.0-51.0); Hemoglobin 11.2 g/dL (11.5-16.0); IMMATURE GRAN ABSOLUTE AUTO 0.09 K/mm3 (0.00-0.10); IMMATURE GRAN PERCENT AUTO 1 % (0-1); LYMPHOCYTES ABSOLUTE AUTO 2.36 K/mm3 (0.84-5.20); LYMPHOCYTES PERCENT AUTO 26 % (21-46); MONOCYTES ABSOLUTE AUTO 0.61 K/mm3 (0.16-1.47); MONOCYTES PERCENT AUTO 7 % (4-13); Mean Corpuscular HGB 33.3 pg (26.0-34.0); Mean Corpuscular Volume 107 fL (80-100); Mean Platelet Volume 9.3 fL (9.1-12.4); NEUTROPHILS ABSOLUTE AUTO 5.45 K/mm3 (1.96-9.15); NEUTROPHILS PERCENT AUTO 61 % (41-73); Platelet Count 136 K/mm3 (150-400); RDW Coefficient Variation 14.1 % (11.7-14.2); Red Blood Cell Count 3.36 M/mm3 (3.80-5.20); White Blood Cell Count 8.94 K/mm3 (4.00-11.30)
[2024-03-25 01:36] LABS: Bun/Creatinine Ratio 11.6 (12.0-20.0); Calcium, Blood 8.2 mg/dL (8.5-10.1); Creatinine, Blood 0.52 mg/dL (0.40-1.00); Magnesium, Blood 2.2 mg/dL (1.6-2.4); Potassium, Blood 3.6 mmol/L (3.5-5.5)
[2024-03-25] MEDS ORDERED: Dose Adjust by Pharmacy XX STA ×4 (01:55→21:06)
[2024-03-25 02:04] VITALS: BP 159/97
--- NOTE | 2024-03-25 03:31 | NUR ---
AAOX3. BEDREST @ BASELINE D/T L SIDE WEAKNESS FROM CVA. 2L O2 VIA NC, BASE LINE IS RA. INCONTINENT OF URINE AND BM, PERWICK IN PLACE. BLE PAIN, IDLAUDID GIVEN PER MAY. 0200 HEPARIN DRIP STOPPED FOR 1 HR, HOWEVER WHEN BRIEFS WERE CHANGED CLAUS RED BLOOD NOTED IN BRIEF, RECTAL BLEEDING. PLAN IS TO WAIT 0500 CBC AND WAIT [facility] RX TO CALL WITH INSTRUCTIONS. DR. SALOMON TO REASSES IN AM, STONE IN NECK/PROXIMAL CYSTIC DUCT. CIWA SCALE, CAN ADMIN LIBRIUM OR ATIVAN DEPENDING ON SCORE. POWERGLIDE TO RUE.
[2024-03-25 06:29] LABS: BASOPHILS ABSOLUTE AUTO 0.12 K/mm3 (0.00-0.23); BASOPHILS PERCENT AUTO 1 % (0-2); EOSINOPHILS ABSOLUTE AUTO 0.31 K/mm3 (0.00-0.68); EOSINOPHILS PERCENT AUTO 4 % (0-6); Hematocrit 38.1 % (33.0-51.0); Hemoglobin 11.8 g/dL (11.5-16.0); IMMATURE GRAN ABSOLUTE AUTO 0.15 K/mm3 (0.00-0.10); IMMATURE GRAN PERCENT AUTO 2 % (0-1); LYMPHOCYTES ABSOLUTE AUTO 2.17 K/mm3 (0.84-5.20); LYMPHOCYTES PERCENT AUTO 25 % (21-46); MONOCYTES ABSOLUTE AUTO 0.73 K/mm3 (0.16-1.47); MONOCYTES PERCENT AUTO 8 % (4-13); Mean Corpuscular HGB 33.4 pg (26.0-34.0); Mean Corpuscular Volume 108 fL (80-100); Mean Platelet Volume 10.5 fL (9.1-12.4); NEUTROPHILS ABSOLUTE AUTO 5.27 K/mm3 (1.96-9.15); NEUTROPHILS PERCENT AUTO 60 % (41-73); Platelet Count 144 K/mm3 (150-400); RDW Standard Deviation 55.1 fL (35.1-46.3); Red Blood Cell Count 3.53 M/mm3 (3.80-5.20); White Blood Cell Count 8.75 K/mm3 (4.00-11.30)
[2024-03-25 07:51] VITALS: BP 154/89
[2024-03-25] MEDS ORDERED: D5W-1/2NS 1,000 ML IV SCH (08:35)
[2024-03-25] MEDS ORDERED: Fluconazole 100 MG Tab PO ONE (11:50)
[2024-03-25 16:01] VITALS: BP 148/94
--- NOTE | 2024-03-25 16:29 | NUR ---
SUMMARY- PT A/O X3- DEPENDANT IN CARE, TURNED Q2, INCONT PUREWICK IN USE. PT HAS BEEN TOLERATING CLEARS TODAY. PT DENIES ABD PAIN WHEN ASKED. CONT TO HAVE CHRONIC LEG PAIN; PAIN CONTROLLED WITH IV DILAUDID. CONT ON HEPARIN GTT. LUNGS CLEAR, REQUIRING 2L/NC, CONT PULSE OX IN USE. DR SALOMON CAME TO SPEAK WITH FAMILY, PLAN FOR GALBLADDER PROCEDURE TOMORROW, PT WILL BE NPO AFTER MN. CIWA 2-3 T/O DAY. AT BEDSIDE MOST OF THE DAY, ATTENTIVE TO PT'S NEEDS. WILL REPORT TO NOC RN.
[2024-03-25 20:36] VITALS: BP 134/79
[2024-03-26] VITALS (9 sets, daily range): BP systolic 97–152; BP diastolic 58–78
[2024-03-26 04:34] LABS: BASOPHILS ABSOLUTE AUTO 0.08 K/mm3 (0.00-0.23); BASOPHILS PERCENT AUTO 1 % (0-2); EOSINOPHILS ABSOLUTE AUTO 0.17 K/mm3 (0.00-0.68); EOSINOPHILS PERCENT AUTO 2 % (0-6); Hemoglobin 10.7 g/dL (11.5-16.0); IMMATURE GRAN ABSOLUTE AUTO 0.16 K/mm3 (0.00-0.10); IMMATURE GRAN PERCENT AUTO 2 % (0-1); LYMPHOCYTES ABSOLUTE AUTO 1.38 K/mm3 (0.84-5.20); LYMPHOCYTES PERCENT AUTO 14 % (21-46); MONOCYTES PERCENT AUTO 5 % (4-13); Mean Corpuscular HGB 33.2 pg (26.0-34.0); Mean Corpuscular HGB Conc 30.6 g/dL (31.5-36.5); Mean Corpuscular Volume 109 fL (80-100); Mean Platelet Volume 9.5 fL (9.1-12.4); NEUTROPHILS ABSOLUTE AUTO 7.58 K/mm3 (1.96-9.15); NEUTROPHILS PERCENT AUTO 77 % (41-73); Platelet Count 100 K/mm3 (150-400); RDW Coefficient Variation 13.9 % (11.7-14.2); RDW Standard Deviation 56.1 fL (35.1-46.3); Red Blood Cell Count 3.22 M/mm3 (3.80-5.20); White Blood Cell Count 9.87 K/mm3 (4.00-11.30)
[2024-03-26 04:48] LABS: Anti-Xa UFH, PHA Monitoring 0.43 IU/mL; International Normalized Ratio 1.09; Prothrombin Time Results 11.6 Sec (9.7-11.5)
[2024-03-26 04:53] LABS: Bun/Creatinine Ratio 11.7 (12.0-20.0); Calcium, Blood 7.4 mg/dL (8.5-10.1); Creatinine, Blood 0.34 mg/dL (0.40-1.00); Potassium, Blood 3.4 mmol/L (3.5-5.5)
[2024-03-26] MEDS ORDERED: Clarify Drug Order XX ONE (04:55)
--- NOTE | 2024-03-26 05:00 | NUR ---
ORIENTED TO SELF AND . GENERALIZED WEAKNESS, L SIDE DEFICIT FROM CVA. BEDREST @ BASELINE. 2L O2 VIA NC, BASELINE RA. INCONTINENT OF URINE AND BM. COCYX RED, BLANCHES. CIWA SSCORES HAVE BEEN 3 OR LESS. NPO @ MIDNIGHT IN ATICIPATION OF MAE. PRN DILAUDID GIVEN FOR BLE PAIN.
[2024-03-26 10:38] LABS: BASOPHILS ABSOLUTE AUTO 0.12 K/mm3 (0.00-0.23); BASOPHILS PERCENT AUTO 1 % (0-2); EOSINOPHILS ABSOLUTE AUTO 0.26 K/mm3 (0.00-0.68); EOSINOPHILS PERCENT AUTO 3 % (0-6); Hematocrit 35.3 % (33.0-51.0); Hemoglobin 10.8 g/dL (11.5-16.0); IMMATURE GRAN ABSOLUTE AUTO 0.24 K/mm3 (0.00-0.10); IMMATURE GRAN PERCENT AUTO 2 % (0-1); LYMPHOCYTES ABSOLUTE AUTO 2.02 K/mm3 (0.84-5.20); LYMPHOCYTES PERCENT AUTO 20 % (21-46); MONOCYTES ABSOLUTE AUTO 0.53 K/mm3 (0.16-1.47); MONOCYTES PERCENT AUTO 5 % (4-13); Mean Corpuscular HGB 33.4 pg (26.0-34.0); Mean Corpuscular HGB Conc 30.6 g/dL (31.5-36.5); Mean Corpuscular Volume 109 fL (80-100); Mean Platelet Volume 9.9 fL (9.1-12.4); NEUTROPHILS ABSOLUTE AUTO 7.12 K/mm3 (1.96-9.15); NEUTROPHILS PERCENT AUTO 69 % (41-73); NRBC ABSOLUTE 0.02 K/mm3 (0.00-0.02); NRBC Auto 0.2 /100 WBC (0.0-0.2); Platelet Count 132 K/mm3 (150-400); RDW Coefficient Variation 13.8 % (11.7-14.2); RDW Standard Deviation 55.6 fL (35.1-46.3); Red Blood Cell Count 3.23 M/mm3 (3.80-5.20); White Blood Cell Count 10.29 K/mm3 (4.00-11.30)
[2024-03-26] MEDS ORDERED: NS 250 ML IV ONE (13:11)
[2024-03-26] MEDS ORDERED: NS 1,000 ML IV ONE (13:18)
[2024-03-26] MEDS ORDERED: Labetalol HCL 5 MG/ML 4ML Injection (Single Dose) ONE (13:56)
--- NOTE | 2024-03-26 16:28 | NUR ---
PATIENT WAS NPO AT START OF SHIFT. PENDING BILIARY TUBE. CAME BACK FROM IR WITH TUBE TO RUQ DRAINING BLACK/BROWN BILE. PER REPORT NO SEDATION WAS GIVEN, 5 MG OF IV LABETALOL WAS ALSO GIVEN TO HELP WITH HR IN THE 120'S. SHE IS CURRENTLY ON 2L NC, DOES DESAT WITH PRN DILAUDID ADMINISTRATION INTO THE LOW 80', BUT RECOVERS QUICKLY. REPOSITIONING Q2. FAVORS LEFT SIDE. HAD PT LYING ON RIGHT SIDE AND BACK MAJORITY OF MORNING/NOON. HX CVA, WITH LEFT SIDE HEMIPARESIS. UNABLE TO TAMIKO NEEDS KNOWN. SPEECH VERY MUMBLED/GARBLED AND DELAYED IN RESPONSE. A/OXSELF. HEPARIN DRIP WAS PAUSED THIS AM PER DR. MCALLISTER. AFTER SURGERY CALLED DR. BARRERA WHO ORDERED TO RESTART HEPARIN UNTIL SPEECH THERAPY CAN EVALUATE AND POTENTIALLY SWITCH TO ORAL ANTICOAGULANT. NO NOTED SEIZURE ACTIVITY. YAAKOV HAS BEEN BY BEDSIDE MAJORITY OF DAY. POWERGLIDE TO DENICE INFUSING HEPARIN. IV TO LEFT WRIST INFUSING IV FLUIDS.
[2024-03-27 02:16] VITALS: BP 118/69
--- NOTE | 2024-03-27 03:42 | NUR ---
ALERT TO SELF, . SPEECH IS MUMBLED AND EXTREMLY HARD TO UNDERSTAND, PROGRESSIVLY WORSE SINCE LAST 2 NIGHTS. L SIDE WEAKNESS FROM PREVIOUS CVA. 2+ PITTING EDEMA BLE. 2L O2 VIA NC, BASELINE RA. INCONTINENT OF URINE AND BM. DRAIN TO RUQ, DRAINING BLACK SLUDGE, MODERATE AMOUNT. PLAN FOR THERAPY TO DO SWALLOW EVAL 03/27/24.
[2024-03-27] MEDS ORDERED: Dose Adjust by Pharmacy XX STA (07:25)
[2024-03-27 07:34] VITALS: BP 122/68
--- NOTE | 2024-03-27 08:13 | NUR ---
DR. BARRERA AT BEDSIDE, DISCUSSED WITH YAAKOV PT'S DECREASED MENTATION AND DIFFICULTY EXPRESSING HERSELF. SPEECH IS MORE MUMLBED, PT APPEARS LESS ALERT. DR. BARRERA WITH ORDER FOR CT SCAN W/O CONTRAST TO EVAL FOR POSSIBLE CVA/TIA. PT WITH HISTORY OF CVA AND MULTIPLE TIA'S. LEFT SIDED WEAKNESS.
[2024-03-27 09:32] LABS: Hematocrit 34.4 % (33.0-51.0); Hemoglobin 10.9 g/dL (11.5-16.0); Mean Platelet Volume 9.6 fL (9.1-12.4); Platelet Count 133 K/mm3 (150-400)
--- NOTE | 2024-03-27 10:37 | NUR ---
RN CONSULTED WITH SPEECH THERAPY. PT IS NOT ABLE TO FOLLOW DIRECTIONS OR MAINTAIN ALERTNESS TO SAFELY SWALLOW MEDICATIONS. TAKING KEPPRA PO THIS MORNING, IT WAS DIFFICULT FOR PT TO SWALLOW HER LIQUID. PT IS INTERMITTENTLY ABLE TO RESPOND, BUT HER SPEECH IS NOT CLEAR AND MUMBLED. PT MOANING BUT UNABLE TO RESPOND WHEN ASKED ABOUT PAIN. AFTER DISCUSSING WITH DR. BARRERA EARLIER TODAY, THIS RN IS HOLDING THE DILAUDID TO SEE IF THAT IMPROVES PT'S MENTATION.
--- NOTE | 2024-03-27 12:09 | NUR ---
CARO IS MORE AWAKE NOW AND RESPONSIVE. SHE IS MOANING AND STATING THAT SHE'S IN PAIN. THIS RN CALLED DR. BARRERA TO DISCUSS WHETHER WE COULD GIVE DILAUDID. DR. BARRERA WITH ORDERS TO CALL SPEECH THERAPY FOR A SWALLOW EVAL NOW THAT PT IS MORE ALERT. DR. BARRERA WITH PLANS TO MODIFY MEDICATIONS FOR PAIN PENDING SPEECH THERAPY EVAL.
--- NOTE | 2024-03-27 12:22 | NUR ---
RN CALLED DR. BARRERA. THIS RN SPOKE TO SPEECH THERAPY, AND THE EARLIEST THAT SPEECH CAN COME TO DO A RE-EVAL IS 3:00PM. PT CONTINUES TO MOAN AND STATE THAT SHE IS IN PAIN, AND STATE, "BABY HELP ME." BABY IS HER YAAKOV, WHO IS AT HER BEDSIDE. THIS RN CALLED DR. BARRERA TO REQUEST PAIN MEDICATION ALTERNATIVE TO DILAUDID. DR. BARRERA HAS ORDERS FOR FENTANYL 25 MCG ONE TIME PER IV. RN UPDATED ORDERS AND UPDATED FAMILY ON THE SITUATION.
[2024-03-27] MEDS ORDERED: FentaNYL Citrate 50 MCG/ML 2 ML Injection IV ONE (12:25)
[2024-03-27 14:22] VITALS: BP 121/69
[2024-03-27] MEDS ORDERED: FentaNYL Citrate 50 MCG/ML 2 ML Injection IV PRN (18:05)
--- NOTE | 2024-03-27 19:25 | NUR ---
CARO REMAINED NPO THROUGH OUT THE SHIFT. SHE IS ALERT ONLY TO SELF, AND HER YAAKOV. EVALUATED BY OVERLOCK COLLAR SETTER, WITH RECOMMENDATIONS FOR NO ORAL MEDS, AND ASPIRATION PRECAUTIONS. PT'S PAIN MEDICATION CHANGED TO 12.5 MCG FENTANYL Q 4 HOURS PRN. THE FENTANYL DID PRODUCE PAIN RELIEF, THE PT WAS ABLE TO SLEEP. AT OTHER TIMES, PT IS MOANING AND SAYING, "BABY BABY HELP ME". BABY IS HER WORD FOR YAAKOV. YAAKOV REPORTS THAT AT BASELINE, AT HOME, PT IS BEDBOUND HOWEVER SHE SPEAKS IN COMPLETE SENTENCES AND IS MORE COHERENT. RECOMMENDATION FOR PALLIATIVE CARE CONSULT?
[2024-03-27 19:38] VITALS: BP 123/76
[2024-03-27] MEDS ORDERED: levETIRAcetam 1,500 MG in NS 100 ML IV SCH (21:00)
[2024-03-28 05:20] VITALS: BP 113/66
[2024-03-28 06:01] LABS: BASOPHILS ABSOLUTE AUTO 0.06 K/mm3 (0.00-0.23); BASOPHILS PERCENT AUTO 1 % (0-2); EOSINOPHILS ABSOLUTE AUTO 0.27 K/mm3 (0.00-0.68); EOSINOPHILS PERCENT AUTO 6 % (0-6); Hematocrit 28.5 % (33.0-51.0); Hemoglobin 9.4 g/dL (11.5-16.0); IMMATURE GRAN ABSOLUTE AUTO 0.06 K/mm3 (0.00-0.10); IMMATURE GRAN PERCENT AUTO 1 % (0-1); LYMPHOCYTES ABSOLUTE AUTO 1.08 K/mm3 (0.84-5.20); LYMPHOCYTES PERCENT AUTO 22 % (21-46); MONOCYTES ABSOLUTE AUTO 0.71 K/mm3 (0.16-1.47); MONOCYTES PERCENT AUTO 14 % (4-13); Mean Corpuscular HGB 33.6 pg (26.0-34.0); Mean Platelet Volume 9.7 fL (9.1-12.4); NEUTROPHILS ABSOLUTE AUTO 2.77 K/mm3 (1.96-9.15); NEUTROPHILS PERCENT AUTO 56 % (41-73); Platelet Count 125 K/mm3 (150-400); RDW Coefficient Variation 13.9 % (11.7-14.2); RDW Standard Deviation 51.8 fL (35.1-46.3); White Blood Cell Count 4.95 K/mm3 (4.00-11.30)
[2024-03-28 06:03] LABS: Mean Corpuscular Volume 102 fL (80-100)
[2024-03-28] MEDS ORDERED: Dose Adjust by Pharmacy XX STA ×2 (06:15→13:06)
[2024-03-28 06:24] LABS: Albumin, Blood 1.5 g/dL (3.4-5.0); Albumin/Globulin Ratio 0.6 (0.8-1.8); Bilirubin, Total 0.4 mg/dL (0.1-1.0); Bun/Creatinine Ratio 6.1 (12.0-20.0); Creatinine, Blood 0.33 mg/dL (0.40-1.00); Globulin, Blood 2.6 g/dL (2.2-4.0); Potassium, Blood 2.6 mmol/L (3.5-5.5); Total Protein, Blood 4.1 g/dL (6.4-8.2)
--- NOTE | 2024-03-28 06:47 | NUR ---
MONOGRAM MACHINE OPERATOR SUMMARY PT HAD A DIFFICULT NIGHT AND HAD A HARD TIME SLEEPING RELATED TO PAIN AND ANXIETY. SHE WAS YELLING OUT WANTING "HELP", UNABLE TO GET COMFORTABLE, COMPLAINING OF L LEG PAIN AND ABDOMINAL PAIN. ORDER FOR DILAUDID IS 0.5-1 MG , GAVE 0.5 INCREMENTALLY PATIENT HAS APPARENTLY HAD SOME ISSUES WITH GETTING TOO DROWSY AT TIMES AFTER PAIN MEDICATION PER REPORT FROM DAY SHIFT RN. JUST READ MD NOTE AND IT APPEARS THAT MD HAD AN INTENTION TO TRIAL DISCONTINUING DILAUDID TO SEE IF IT HELPS WITH PATIENTS CONFUSION, SO I JUST DISCONTINUED IT PER HER NOTE. ALTHOUGH PT GETS VERY PAINFUL AND MAY BENEFIT FROM A PALLIATIVE CARE CONSULT TO ADVOCATE FOR HER PAIN CONTROL NEEDS. PT HAS BEEN SAYING SHE JUST WANTS TO "GO HOME". WE GAVE HER IV ATIVAN ONCE THIS SHIFT BECAUSE SHE WAS VERY TEARFUL AND UPSET AND HER ANXIETY WAS VERY SEVERE. THE ONE DOSE OF ATIVAN WAS VERY EFFECTIVE FOR HER.
[2024-03-28 07:32] VITALS: BP 138/74
[2024-03-28] MEDS ORDERED: Potassium Chloride 40 MEQ in NS 250 ML IV ONE (10:15)
[2024-03-28] MEDS ORDERED: TPN Consult Notification XX ONE (13:15)
[2024-03-28] MEDS ORDERED: Potassium Chl 10MEQ/Water100ML 100 ML IV SCH (15:00)
[2024-03-28 15:21] VITALS: BP 121/78
--- NOTE | 2024-03-28 16:30 | NUR ---
CRITICAL RESULT JASON FROM CHEMISTRY CALLED TO NOTIFY PATIETN WITH CRITICAL PHOSPHORUS OF >0.1. MD NOTIFIED AND STATES WILL CHANGE SPOTASSIUM CHLORIDE ORDER TO POTASSIUM PHOS. PATIENT WITH NO CHANGES SINCE THIS AM.
[2024-03-28] MEDS ORDERED: Potassium Phosphate Dibasic 30 MM in Dextrose 5% 500 ML IV STA (16:32)
[2024-03-28] MEDS ORDERED: Parenteral Electolytes 40 ML,Potassium Phosphate Dibasic 30 MM,Multivitamins 10 ML,ZINC... IV SCH (17:00)
--- NOTE | 2024-03-28 19:35 | NUR ---
SHIFT SUMMARY PATIENT ALERT AND ORIENTED TO SELF. MINIMAL VERBAL RESPONSES, ABLET O USE 1-2 WORD SENTENCES. PATIENT WEANED OFF OF OXYGEN THIS AM, TOLERATING WELL, SPO2 ABOVE 94% ON ROOM AIR. PERCUTANEOUS CHOLCYSTOSTOMY DRAINING DARK BROWN/GREEN FLUDIS. PPN STARTED THIS EVENING PER ORDER. NEW POWERGLIDE PALCED TO DENICE BY CHARGE NURSE, IV TO LEFT WRIST REMOVED FOR LEAKING. CIWA SCORE THIS AFTERNOON OF 9, ATIVAN ADMINISTERED PER MAY. PATIENT COMPLAINING OF PAIN THIS AM TO LEFT LEG, FENTANYL ADMINISTERED PER MAY. HEPARIN GTT RUNNING PER ORDERS, RATE CHANGED THIS AFTERNOON. AT BEDSIDE MOST OF SHIFT TODAY AND UPDATED ON PATIENT STATUS. POTASSIUM LOW THIS AM AND IV POTASSIUM CHLORIDE ADMINISTERED PER MAY. PATIENT THEN FOUND TO HAVE CRITICAL PHOSPHORUS, NOTFIED AND POTASSIUM PHOS ORDERED AND INFUSING CURRENTLY. NO OTHER CONCERNS AT THIS TIME. REPORT GIVEN TO PRECIPITATE WASHER RN.
[2024-03-28 19:41] VITALS: BP 106/70
[2024-03-29 02:46] LABS: BASOPHILS ABSOLUTE AUTO 0.06 K/mm3 (0.00-0.23); BASOPHILS PERCENT AUTO 1 % (0-2); EOSINOPHILS ABSOLUTE AUTO 0.52 K/mm3 (0.00-0.68); EOSINOPHILS PERCENT AUTO 11 % (0-6); Hematocrit 28.4 % (33.0-51.0); Hemoglobin 9.5 g/dL (11.5-16.0); IMMATURE GRAN ABSOLUTE AUTO 0.05 K/mm3 (0.00-0.10); IMMATURE GRAN PERCENT AUTO 1 % (0-1); LYMPHOCYTES ABSOLUTE AUTO 1.14 K/mm3 (0.84-5.20); LYMPHOCYTES PERCENT AUTO 23 % (21-46); MONOCYTES ABSOLUTE AUTO 0.49 K/mm3 (0.16-1.47); MONOCYTES PERCENT AUTO 10 % (4-13); Mean Corpuscular HGB 33.5 pg (26.0-34.0); Mean Corpuscular HGB Conc 33.5 g/dL (31.5-36.5); Mean Corpuscular Volume 100 fL (80-100); Mean Platelet Volume 9.7 fL (9.1-12.4); NEUTROPHILS ABSOLUTE AUTO 2.68 K/mm3 (1.96-9.15); NEUTROPHILS PERCENT AUTO 54 % (41-73); Platelet Count 167 K/mm3 (150-400); RDW Coefficient Variation 13.9 % (11.7-14.2); RDW Standard Deviation 51.4 fL (35.1-46.3); Red Blood Cell Count 2.84 M/mm3 (3.80-5.20); White Blood Cell Count 4.94 K/mm3 (4.00-11.30)
[2024-03-29 02:56] VITALS: BP 120/77
[2024-03-29 03:02] LABS: Anion Gap 5 mmol/L (3-11); Blood Urea Nitrogen 2 mg/dL (8-24); Bun/Creatinine Ratio 7.1 (12.0-20.0); CO2, Blood 29 mmol/L (21-32); Calcium, Blood 6.8 mg/dL (8.5-10.1); Chloride, Blood 112 mmol/L (98-108); Creatinine, Blood 0.28 mg/dL (0.40-1.00); Glomerular Filtration Rate 118 (60-); Glucose, Blood 137 mg/dL (70-99); Magnesium, Blood 1.5 mg/dL (1.6-2.4); Phosphorus, Blood 1.3 mg/dL (2.5-4.9); Potassium, Blood 3.3 mmol/L (3.5-5.5); Sodium, Blood 143 mmol/L (136-145); Triglycerides 64 mg/dL (30-160)
--- NOTE | 2024-03-29 03:10 | NUR ---
I SPOKE TO DR. FAJARDO, UPDATED ON POTASSIUM/PHOS/MG LEVELS WITH AM DRAW - HE REPORTED HE WOULD PLACE ORDERS.
[2024-03-29] MEDS ORDERED: Clarify Drug Order XX ONE (03:20)
[2024-03-29] MEDS ORDERED: Mag Sulfate 1 GM/D5% 100ML 100 ML IV STA (03:30)
[2024-03-29] MEDS ORDERED: Potassium Phosphate Dibasic 30 MM in Dextrose 5% 500 ML IV STA (03:31)
--- NOTE | 2024-03-29 04:51 | NUR ---
AWAITING POTASSIUM PHOSPHATE TO ARRIVE FROM PHARMACY.
--- NOTE | 2024-03-29 04:54 | NUR ---
SHIFT SUMMARY - NO ACUTE CHANGES THIS SHIFT. PT MEDICATED X1 FOR PAIN WITH GOOD RELIEF. PT VERY PAINFUL WITH MOVEMENT FOR Q 2HOUR TURNS/PERSONAL CARE. OTHERWISE PT HASN'T COMPLAINED OF PAIN, AND PT HAS BEEN SLEEPING THROUGHOUT MOST OF THE NIGHT. PT CONTINUES WITH LIQUID STOOLS/INCONTINENCE OF URINE. CALL LIGHT WITHIN REACH. BED IN LOW POSITION. BED ALARM ON FOR PT SAFETY.
[2024-03-29 07:57] VITALS: BP 122/89
[2024-03-29] MEDS ORDERED: Dose Adjust by Pharmacy XX STA (09:11)
[2024-03-29] MEDS ORDERED: Acetaminophen 650 MG Supp PR PRN (11:00)
--- NOTE | 2024-03-29 12:50 | NUR ---
MET WITH CARO AND HER DIOMEDES. PATIENT HAD A CVA IN THE PAST. SHE HAS HAD A PREVIOUS PEG. WE DISCUSSED IF SHE WOULD WANT A PEG TUBE AGAIN IF SHE NEEDED IT. HER AND HER DISCUSSED THIS AND SAID THAT THEY WOULD BE OPEN TO IT. THEY WANTED TO PROCEED WITH DIAGNOSTIC AT THIS TIME. HER CONCERN WAS NOT FEELING WELL ENOUGH TO TOLORATE THE TEST. SHE JUST RECIEVED A TYLONEL SUPPOSITORY. DISCUSSED WITH DR. BARRERA ADDED A SCOPOLAMINE PACTH TO HELP WITH HER DIZZINESS AND NAUSEA. SPEECH THERAPY UPDATED AND WILL FOLLOW UP WITH HER THIS AFTERNOON.
[2024-03-29] MEDS ORDERED: Scopolamine Hydrobromide Patch TOP ONE (13:00)
[2024-03-29 15:11] VITALS: BP 124/76
--- NOTE | 2024-03-29 15:28 | NUR ---
SHIFT SUMMARY MS GRIGGS IS ORIENTATED TO HER NAME AND TO [facility]. SHE HAS BEEN AWAKE AND RESPONSIVE TO QUESTIONS TODAY. C/O NAUSEA AND DIZZYNESS, TREATED WITH ZOFRAN AND SCOPOLOMINE. SHE HAS NOT HAD EMESIS, BUT REPORTS NO IMPROVEMENT IN NAUSEA SYMPTOMS. SHE HAS C/O CHRONIC LEFT AND AND LEFT LEG PAIN AND ABDOMINAL PAIN. SHE VERBALISES BEING VERY UNCOMFORTABLE ON TURNING/REPOSITIONING/CLEANING/CHANGING. SHE DID REPORT SOME IMPROVEMENT AFTER TYLENOL SUPPOSITORY, BUT NO IMPROVEMENT REPORTED OR SEEN AFTER IV FENTANYL. SUPPORTIVE FAMILY AT BEDSIDE. SHE WAS ABLE TO COMPLETE SWALLOW EVALUATION TODAY. HEPARIN GTT CONTINUES. PPN CONTINUES. 2 POWERGLIDES IN R UPPER ARM. ON 2L N/C OXYGEN, TITRATED DOWN TO 1L N/C. ON CONTINUOUS PULSE OX IN THE 90S WITH NO RESP DISTRESS NOTED. DR BARRERA NOTIFIED OF PAIN/NAUSEA AND NO OUTPUT TO RUQ DRAIN. INCONTINENT OF URINE AND LOOSE STOOLS. BED LOW, CALL LIGHT IN REACH. BED ALARM ON.
[2024-03-29] MEDS ORDERED: OxyCODONE HCL 5 MG TAB PO PRN (16:25)
[2024-03-29] MEDS ORDERED: Apixaban 5 MG Tab PO SCH (21:00)
[2024-03-29 21:37] VITALS: BP 112/67
--- NOTE | 2024-03-29 23:18 | NUR ---
STOPPED HEPARIN DRIP AT 2310--PER ASSIGNED RN ORDERED DISCONTINUED BY PHARMACY.
--- NOTE | 2024-03-30 03:07 | NUR ---
PAPER DELIVERER SUMMARY HR LOW HUNDRED, OTHERWISE VSS. ALERT AND ORIENTED, VERBAL RESPONSE APPROPRIATE. WAS STARTED ON PO ELIQUIS AND PER MD ORDERS, HEPARIN DRIP WAS STOPPED. PPN IN FUSING. TOLERATING PO MEDS WITH APPLESAUCE. REPOSITIONED AND CHECKED/CHANGED Q 2 HRS. REQUESTED PAIN MEDS AT SHIFT START, (SEE MAR FOR DETAILS), CURRENTLY RSTING QUIETLY WITH FWE INTERRUPTIONS. CALL LIGHT IN REACH, RAILS UP X 2 AND BED IN LOW POSITION FOR SAFETY. HOB ELEVATED FOR RESP COMFORT. WILL CONT TO MONITOR
[2024-03-30 05:48] LABS: BASOPHILS ABSOLUTE AUTO 0.04 K/mm3 (0.00-0.23); BASOPHILS PERCENT AUTO 1 % (0-2); EOSINOPHILS ABSOLUTE AUTO 0.39 K/mm3 (0.00-0.68); EOSINOPHILS PERCENT AUTO 8 % (0-6); Hematocrit 27.8 % (33.0-51.0); Hemoglobin 9.5 g/dL (11.5-16.0); IMMATURE GRAN ABSOLUTE AUTO 0.03 K/mm3 (0.00-0.10); IMMATURE GRAN PERCENT AUTO 1 % (0-1); LYMPHOCYTES ABSOLUTE AUTO 1.18 K/mm3 (0.84-5.20); LYMPHOCYTES PERCENT AUTO 23 % (21-46); MONOCYTES ABSOLUTE AUTO 0.65 K/mm3 (0.16-1.47); MONOCYTES PERCENT AUTO 13 % (4-13); Mean Corpuscular HGB 33.9 pg (26.0-34.0); Mean Corpuscular HGB Conc 34.2 g/dL (31.5-36.5); Mean Corpuscular Volume 99 fL (80-100); Mean Platelet Volume 10.3 fL (9.1-12.4); NEUTROPHILS ABSOLUTE AUTO 2.85 K/mm3 (1.96-9.15); NEUTROPHILS PERCENT AUTO 55 % (41-73); Platelet Count 189 K/mm3 (150-400); RDW Coefficient Variation 14.3 % (11.7-14.2); RDW Standard Deviation 52.1 fL (35.1-46.3); White Blood Cell Count 5.14 K/mm3 (4.00-11.30)
[2024-03-30 06:06] VITALS: BP 130/72
[2024-03-30 06:23] LABS: Bun/Creatinine Ratio 16.1 (12.0-20.0); Calcium, Blood 7.1 mg/dL (8.5-10.1); Creatinine, Blood 0.31 mg/dL (0.40-1.00); Magnesium, Blood 1.6 mg/dL (1.6-2.4); Phosphorus, Blood 1.5 mg/dL (2.5-4.9)
[2024-03-30] MEDS ORDERED: Sodium Phosphate 30 MM in Dextrose 5% 500 ML IV STA (07:02)
[2024-03-30 07:47] VITALS: BP 110/73
--- NOTE | 2024-03-30 12:25 | NUR ---
CALLED DR BARRERA THIS AM AND SPOKE ABOUT PT FLUID STATUS PT HAS +3-4 PITTING EDEMA T/O HER CORE AND EXTREMITIES. WT SHOWS A CHANGE OF [address] PLACED ORDER FOR BID LASIX, HOWEVER IT STARTS AT 1800. CALLED TO CLARIFY SHE DOES NOT WANT FIRST DOSE NOW. KEPPRA SWITCHED TO PO BUT PT HAS TO HAVE MEDS CRUSHED, KEPPRA CAN NOT BE CRUSHED BUT COMES IN LIQUID FORM. LEFT VOICEMAIL, AWAITING A CALL BACK.
[2024-03-30] MEDS ORDERED: MetroNIDAZOLE 500 MG Tab PO SCH (14:00)
[2024-03-30 15:19] VITALS: BP 133/86
[2024-03-30] MEDS ORDERED: Furosemide 10 MG / ML 2ML Vial IV SCH ×2 (16:10→18:00)
[2024-03-30 16:24] VITALS: BP 118/92
--- NOTE | 2024-03-30 19:29 | NUR ---
SHIFT SUMMARY- PT WAS STARTED ON LASIX THIS EVENING. PRIOR TO LASIX DOSE THEY PT WAS VOIDING LARGE AMOUNTS EVERY 2 HOURS, NOW HER OUTPUT HAS DOUBLED, THE SWELLING HAS ALREADY REDUCED IN THE EXTREMITIES WITHIN 2 HOURS OF RECIEVING THE MEDICINE. PT IS MORE ALERT THAN SHE HAS BEEN ALL SHIFT. SHE RECIEVED PAIN MEDICATION ONCE AND ASKING FOR ANOTHER DOSE AT THE TIME OF BEDSIDE REPORT. NIGHT RN AWARE. PT IS IN BED AND HAS BEEN CHANGED AND TURNED Q2, HEEL MEPILEXES PLACED TO PREVENT BREAKDOWN, PT HAS CONTRACTURES OF THE KNEES AND HIPS. PT IN BED, REYMUNDO LIGHT IN REACH SPOUSE AT THE BEDSIDE, NO S&S OF DISTRESS NOTED AT THE TIME OF BEDSIDE REPORT. PT ON ROOM AIR, CONT BIOX SHOWS SATS 95% OR HIGHER.
[2024-03-30 20:04] VITALS: BP 125/82
[2024-03-30] MEDS ORDERED: LevETIRAcetam 100 MG/ML 5ML ORAL SYR PO SCH (21:00)
[2024-03-30] MEDS ORDERED: LevETIRAcetam 500 MG Tab PO SCH (21:00)
[2024-03-31 02:23] VITALS: BP 122/75
[2024-03-31] MEDS ORDERED: Acetaminophen 325 MG TABLET PO PRN (03:25)
[2024-03-31 05:57] LABS: Albumin, Blood 1.7 g/dL (3.4-5.0); Albumin/Globulin Ratio 0.6 (0.8-1.8); Bilirubin, Total 0.3 mg/dL (0.1-1.0); Bun/Creatinine Ratio 28.8 (12.0-20.0); Calcium, Blood 7.9 mg/dL (8.5-10.1); Creatinine, Blood 0.31 mg/dL (0.40-1.00); Globulin, Blood 2.9 g/dL (2.2-4.0); Magnesium, Blood 1.7 mg/dL (1.6-2.4); Phosphorus, Blood 2.8 mg/dL (2.5-4.9); Total Protein, Blood 4.6 g/dL (6.4-8.2)
--- NOTE | 2024-03-31 06:03 | NUR ---
SENIOR POLICY ADVISOR SUMMARY NO ACUTE CHANGE. PT A/OX3. ABLE TO MAKE NEEDS KNOWN AND FOLLOWS COMMANDS. PT PLEASANT AND COOPERATIVE. CONTINUES TO BE PAINFUL FOR MOVEMENT/REPOSITIONING. PT C/O FO PAINFUL BACK, HIPS, GUMS, AND GENERALIZED PAIN. MEDS PER MAY. CALL TO HOSPITALIST--NEW ORDER FOR PO TYLENOL. PT STARTED LASIX JUST BEFORE START OF SHIFT. PT HAVING INCREASED URINARY OUTPUT. PLACED PURWIC FOR PT COMFORT AND ASSESSED PT ON REGULAR INTERVALS TO ENSURE CLEAN AND DRY. CALL LIGHT ACCESSIBLE. WCTM UNTIL REPORT GIVEN TO CONCOMING NURSE.
[2024-03-31 07:43] VITALS: BP 129/75
[2024-03-31] MEDS ORDERED: Protein Supplement 30 ML UD PO SCH (09:00)
[2024-03-31 09:38] VITALS: BP 124/88
[2024-03-31] MEDS ORDERED: OXYC5 PO (11:35)
[2024-03-31] MEDS ORDERED: VISBIOME 112.51 EACH PO (11:36)
--- NOTE | 2024-03-31 11:40 | NUR ---
PROVIDED HARD COPY SCRIPT TO PT SPOUSE AND SOLE CAREGIVER AT HOME SO HE CAN TAKE IT TO THE PHARMACY TO BE FILLED. PT WILL NEED TRANSPORT HOME BROADCAST MAINTENANCE ENGINEER IS CONTACTING THE CAREMANAGER TO SEE IF IT CAN BE ARRANGED.
[2024-03-31] MEDS ORDERED: ELIQUIS5 M2 PO (11:46)
[2024-03-31] MEDS ORDERED: CefTRIAXone Sodium 1,000 MG in NS 100 ML IV SCH (12:30)
--- NOTE | 2024-03-31 18:00 | NUR ---
DISCHARGE NOTE- ADDITIONAL TANKAGE GRINDER OPERATOR ASSISTED IN PREPARING THE PT FOR HOME. PT WAS DISCHARGED EARLIER IN THE SHIFT, HOWEVER DISCHARGE WAS NOT COMPLETED TRANSPORT NEEDED TO BE ARRANGED. WAITED FOR ASSISTANCE FROM CARE MANAGEMENT, THE CHARGE WAS UNABLE TO SET UP TRANSPORT. PER CARE MENAGEMENT THE PT INSURANCE WILL NOT COVER TRANSPORT HOME. PT WILL HAVE TO TRANSPORT WITH HER SPOUSE OR PAY OUT OF POCKET FOR TRANSPORT. PT SPOUSE STATES THE TRANSPORT VAN (THEIRS) IS CURRENTLY BROKE DOWN. THEY CAN NOT PAY FOR TRANSPORT. AUTO SUSPENSION AND STEERING MECHANIC CALLED NURSING OPTICAL GOODS WORKER, PT SPOUSE STATES HE CAN MANAGE THE PT AT HOME, IF SHE CAN BE DISCHARGED AND DELIVERED TO THEIR HOME; [facility] WAS ARANGED AND TRANSPORT ARRIVED 30 MINUTES LATER. PT WAS TAKEN VIA [facility] [facility] TRANSPORT ACK TO THEIR 5TH WHEEL WHERE THEY RESIDE, NO S&S OF DISTRESS AT THE TIME OF DISCHARGE. HARD COPY SCRIPT WAS PROVIDED TO THE SPOUSE EARLIER IN THE SHIFT FOR PT PAIN MEDICATION.
== END 2024-03-31 16:03 | disposition home health service (06) | DRG 444 ==
LOC: ER 10:17 → SURS 20:22 → MEDS 20:22
PROVIDERS: Internal Medicine; Nurse Practitioner Acute Care; Student in an Organized Health Care Education/Training Program; ADMIT Student in an Organized Health Care Education/Training Program
PROC: 0F9430Z Drainage of Gallbladder with Drainage Device, Percutaneous Approach (ICD-10-PCS; principal; 2024-03-26)
DX: K80.01 Calculus of gallbladder with acute cholecystitis with obstruction (principal); G92.8 Other toxic encephalopathy; I26.99 Other pulmonary embolism without acute cor pulmonale; J96.01 Acute respiratory failure with hypoxia; F10.239 Alcohol dependence with withdrawal, unspecified; I69.354 Hemiplegia and hemiparesis following cerebral infarction affecting left non-dominant side; N39.0 Urinary tract infection, site not specified; G40.909 Epilepsy, unspecified, not intractable, without status epilepticus; F10.229 Alcohol dependence with intoxication, unspecified; E78.5 Hyperlipidemia, unspecified; I25.10 Atherosclerotic heart disease of native coronary artery without angina pectoris; E83.42 Hypomagnesemia; E87.6 Hypokalemia; R13.10 Dysphagia, unspecified; Z88.0 Allergy status to penicillin; Z88.5 Allergy status to narcotic agent; Z88.1 Allergy status to other antibiotic agents; Z79.891 Long term (current) use of opiate analgesic; Z79.82 Long term (current) use of aspirin; Z79.899 Other long term (current) drug therapy; Z90.49 Acquired absence of other specified parts of digestive tract; Z99.3 Dependence on wheelchair; Z98.890 Other specified postprocedural states; Z98.51 Tubal ligation status; T40.2X5A Adverse effect of other opioids, initial encounter; Z74.01 Bed confinement status
CPT/HCPCS: 31500; 36415; 70450; 71045; 71260; 74177; 76705; 76937; 78226; 80048; 80053; 81001; 82947; 83605; 83690; 83735; 83880; 84100; 84132; 84478; 84484; 85014; 85018; 85025; 85049; 85379; 85520; 85610; 85730; 87040; 87428-QW; 92526; 92610; 92950; 93005; 93010; 93306; 93970; 94002; 94762; 96361; 96374-59; 96375; 96376; 99285-25; A9270; A9537; C1729; C1751; C1769; J0696; J1171; J1644; J1940; J1953; J2060; J2405; J3010; J3411; J3475; J3480; J7030; J7042; J7050; J7060; J7120; Q9967